=== PATIENT | female | born 1980 | race Caucasian/White ===

== ENCOUNTER 2016-11-23 01:58 | Emergency (ER) | payer SELFPAY ==
[~2016-11-23] VITALS: Ht 160 cm; Wt 81.6 kg
[~2016-11-23 01:58] MED LIST: ACET-704 PO; ACYC400T PO; ALBU8.5H6 IH; CLON1TAB PO; GABA-586 PO; GABA600T PO; HYDR-2161 PO; LEVO1IUD IY; LORA0.5T PO; METR500T PO; NITR100C62 PO; OXYC1TAB9 PO; PRED50TA PO; SULF1TAB24 PO; VENL150C PO; VENL37.5 PO
[2016-11-23 02:40] VITALS: BP 141/79
[2016-11-23 02:59] LABS: NEG OBC UR NEG; POS OBC UR POS
[2016-11-23 03:02] LABS: BILIRUBIN,URINE NEGATIVE (NEG); GLUCOSE,URINE NEGATIVE (NEG); NITRITE,URINE NEGATIVE (NEG); PROTEIN,URINE NEGATIVE (NEG-TRACE); UROBILINOGEN,URINE 0.2 mg/dL (0.2 mg/dL)
[2016-11-23 03:10] LABS: BACTERIA,URINE FEW /HPF (0-FEW); RBC,URINE TNTC /HPF (0-2); SQUAMOUS EPITHELIAL CELL,UR FEW /LPF
--- NOTE | 2016-11-23 03:31 | PHYS DOC ---
Past Medical History Past Medical History: Ovarian Cyst Additional Past Medical Histor: BORDERLINE DM2 Past Surgical History: No Surgical History Additional Past Surgical Histo: right knee Alcohol Use: None Drug Use: None Adult General Chief Complaint Chief Complaint: VAGINAL BLEEDING HPI HPI Patient is a 36 year old female who presents with abnormal vaginal bleeding since having her IUD removed. She has had some light bleeding and heavy bleeding that are intermittent over the past 2 weeks. She [facility] her [facility] due to irregular position. She has not had one replaced yet. She has supraumbilical/left lower quadrant crampy abdominal pain that is similar to her menstrual cramping, but she is not sure if it is exactly similar as she has had her IUD in place for almost 5 years and has not experienced cycles like this. She denies dysuria, diarrhea, constipation, nausea or vomiting, fever or chills. She has been taking ibuprofen every 8 hours without complete relief of her symptoms. She is using up to 6 pads per day. Review of Systems Review of Systems Constitutional: Denies fever or chills [] Eyes: Denies change in visual acuity, redness, or eye pain [] HENT: Denies nasal congestion or sore throat [] Respiratory: Denies cough or shortness of breath [] Cardiovascular: No additional information not addressed in HPI [] GI: Denies nausea, vomiting, bloody stools or diarrhea [] : Denies dysuria or hematuria [] Musculoskeletal: Denies back pain or joint pain [] Integument: Denies rash or skin lesions [] Neurologic: Denies headache, focal weakness or sensory changes [] Endocrine: Denies polyuria or polydipsia [] Current Medications Current Medications Current Medications Medications (Trade) Dose Ordered Sig/[facility] Start Time Stop Time Status Last Admin Dose Admin Acetaminophen/ Hydrocodone Bitart (Lortab 5/325) 2 tab 1X ONCE 11/23/16 04:00 11/23/16 04:01 DC 11/23/16 03:40 2 TAB Allergies Allergies Allergies Coded Allergies Type Severity Reaction Last Updated Verified No Known Drug Allergies 11/08/13 No Physical Exam Physical Exam Constitutional: Well developed, well nourished, no acute distress, non-toxic appearance. [] HENT: Normocephalic, atraumatic, bilateral external ears normal, oropharynx moist, nose normal. [] Eyes: PERRLA, EOMI. [] Neck: Normal range of motion, supple. [] Cardiovascular:Heart rate regular rhythm [] Lungs & Thorax: Bilateral breath sounds clear to auscultation [] Abdomen: Bowel sounds normal, soft, minimal suprapubic tenderness, no guarding or rebound. [] Skin: Warm, dry, no erythema, no rash. [] Back: No tenderness, no CVA tenderness. [] Extremities: ROM intact, no edema. [] Neurologic: Alert and oriented X 3, normal motor function, normal sensory function, no focal deficits noted. [] Psychologic: Affect normal, judgement normal, mood normal. [] Current Patient Data Vital Signs Vital Signs Date Time Temp Pulse Resp B/P Pulse Ox O2 Delivery O2 Flow Rate FiO2 11/23/16 03:40 16 98 Room Air 11/23/16 02:40 98.1 76 141/79 98.1 Lab Values Laboratory Tests Test 11/23/16 02:30 Urine Collection Type Unknown Urine Color Yellow Urine Clarity Clear Urine pH 6.0 Urine Specific Mize 1.020 Urine Protein Negativemg/dL (NEG-TRACE) Urine Glucose (UA) Negativemg/dL (NEG) Urine Ketones (Stick) Negativemg/dL (NEG) Urine Blood Large (NEG) Urine Nitrite Negative (NEG) Urine Bilirubin Negative (NEG) Urine Urobilinogen Dipstick 0.2mg/dL (0.2 mg/dL) Urine Leukocyte Esterase Small (NEG) Urine RBC Tntc/HPF (0-2) Urine WBC 5-10/HPF (0-4) Urine Squamous Epithelial Cells Few/LPF Urine Bacteria Few/HPF (0-FEW) Urine Mucus Mod/LPF Urine Test Negative (NEG) Course & Med Decision Making Course & Med Decision Making She appears well on exam. Recommend continue NSAIDs and follow-up with gynecology for abnormal uterine bleeding. Return precautions given. She understands and agrees with plan. Dragon Disclaimer Dragon Disclaimer This electronic medical record was generated, in whole or in part, using a voice recognition dictation system. Departure Departure Impression: Primary Impression: Abnormal uterine bleeding Disposition: HOME, SELF-CARE Condition: STABLE Referrals: UNKNOWN PCP NAME (PCP) Patient Instructions: Abnormal Uterine Bleeding Additional Instructions: Take ibuprofen or Tylenol as needed for pain. Follow-up with your residential mortgage manager. Return for any concerns. Aydin STERLING MD Nov 23, 2016 03:31
[2016-11-23] MEDS ORDERED: HYDROCODONE/APAP 5/325MG TABLET. PO ONE (04:00)
[2016-11-23] MEDS ORDERED: DICY10CA53 PO (16:47)
[2016-11-23] MEDS ORDERED: NAPR250T2 PO (16:47)
[2016-11-27] MEDS ORDERED: AMOX875T PO (15:00)
== END 2016-11-23 06:00 | disposition home or self-care (01) ==
LOC: ER 01:58
DX: N93.8 Other specified abnormal uterine and vaginal bleeding (principal)
CPT/HCPCS: 81001; 81025; 87086; 99284

== ENCOUNTER 2016-11-23 14:36 | Emergency (ER) | payer SELFPAY ==
[~2016-11-23] VITALS: Ht 160 cm; Wt 81.6 kg
[2016-11-23 15:04] LABS: NEG OBC UR NEG; POS OBC UR POS
--- NOTE | 2016-11-23 15:30 | ED.ADGEN ---
Past Medical History Past Medical History: Ovarian Cyst Additional Past Medical Histor: BORDERLINE DM2 Past Surgical History: No Surgical History Additional Past Surgical Histo: right knee Alcohol Use: None Drug Use: None Adult General Chief Complaint Chief Complaint: ABDOMINAL PAIN HPI HPI Patient is a 36 year old woman, history of ovarian cyst, borderline Diabetes mellitus, present emergency department with complaint of 2 days of left-sided sharp cramping pelvic pain. Patient states that she was evaluated at another emergency department last month, patient states that she had a Mirena in place, and she was told that Mirena had "slipped and was causing muscle spasm. Mirena was removed at that time. Patient states that she wasn't feeling better, 2 days ago developed recurrent sharp pelvic pain in the left side, she denies any injuries, any recent sexual activity or insertion of the vagina, does not have any urinary complaints or flank or back pain. No upper abdominal pain, complains of mild nausea, no vomiting, states that she had diarrhea 2 days ago but none since that time, loose brown stool, no blood. Patient has an ovarian cysts previously, but she is not certain if this feels like that pain. No other complaints. She states that she took ibuprofen 800 mg at home this morning without relief. Review of Systems Review of Systems Constitutional: Denies fever or chills. [] Eyes: Denies change in visual acuity. [] HENT: Denies nasal congestion or sore throat. [] Respiratory: Denies cough or shortness of breath. [] Cardiovascular: Denies chest pain or edema. [] GI: Denies vomiting, bloody stools or diarrhea. Left-sided pelvic cramping pain , sharp and shooting. : Denies dysuria. [] Musculoskeletal: Denies back pain or joint pain. [] Integument: Denies rash. [] Neurologic: Denies headache, focal weakness or sensory changes. [] Endocrine: Denies polyuria or polydipsia. [] Lymphatic: Denies swollen glands. [] Psychiatric: Denies depression or anxiety. [] Current Medications Current Medications Current Medications Medications (Trade) Dose Ordered Sig/Rj Start Time Stop Time Status Last Admin Dose Admin Dicyclomine HCl (Bentyl) 10 mg 1X ONCE 11/23/16 16:00 11/23/16 16:01 DC 11/23/16 16:05 10 MG Naproxen (Naprosyn) 250 mg 1X ONCE 11/23/16 16:00 11/23/16 16:01 DC 11/23/16 16:10 250 MG Allergies Allergies Allergies Coded Allergies Type Severity Reaction Last Updated Verified No Known Drug Allergies 11/08/13 No Physical Exam Physical Exam Constitutional: Well developed, well nourished, no acute distress, non-toxic appearance. [] HENT: Normocephalic, atraumatic, bilateral external ears normal, oropharynx moist, no oral exudates, nose normal. [] Eyes: PERRLA, EOMI, conjunctiva normal, no discharge. [] Neck: Normal range of motion, no tenderness, supple, no stridor. [] Cardiovascular:Heart rate regular rhythm, no murmur, S1, S2, no rubs or gallops. [] Lungs & Thorax: Bilateral breath sounds clear to auscultation , no wheezing, rhonchi, rales. No chest wall tenderness or crepitus. [] Abdomen: Bowel sounds normal, soft, patient with mild tenderness palpation in the left pelvic region, no abdominal tenderness to palpation, no rebound, rigidity, no guarding no masses, no pulsatile masses. [] Skin: Warm, dry, no erythema, no rash. [] Back: No tenderness, no CVA tenderness. [] Extremities: No tenderness, no cyanosis, no clubbing, ROM intact, no edema. [] Neurologic: Alert and oriented X 3, normal motor function, normal sensory function, no focal deficits noted. [] Psychologic: Affect normal, judgement normal, mood normal. [] Pelvic examination: Patient external examination is unremarkable. Patient complains of recurrence of symptoms with palpation of the left adnexa, although no masses are identified. No chandelier sign, very mild CMT with a closed os, patient noted to have dark blood in vault, with a few clots, no evidence of active bleeding or bright red blood. A speculum examination, normal appearing nonfriable cervix identified. Specimens taken with without issue. Current Patient Data Vital Signs Vital Signs Date Time Temp Pulse Resp B/P Pulse Ox O2 Delivery O2 Flow Rate FiO2 11/23/16 15:03 98.3 75 16 111/67 97 Room Air 98.3 Lab Values Laboratory Tests Test 11/23/16 14:57 Urine Test Negative (NEG) Microbiology 11/23/16 Wet Prep - Final, Complete EKG EKG Not indicated. Radiology/Procedures Radiology/Procedures [] [facility] [address] [place] [address] IMAGING REPORT Signed PATIENT: INÉS ALMONTE ACCOUNT: [id number] : 1980 LOCATION: ER AGE: 36 SEX: F EXAM STATUS: REG ER ORD. PHYSICIAN: LYN CARVAJAL DO REASON: L pelvic pain PROCEDURE: PELVIS COMPLETE Transabdominal ultrasound of the pelvis. History: Left pelvic pain Transabdominal ultrasound was performed. The uterus measures 7.6 x 4.1 x 4.3 cm. There is no uterine mass. Endometrium was 3 mm. Right ovary was noted measuring 3.6 x 1.9 x 1.3 cm. Left ovary is identified measuring 1.5 x 2.6 x 1.5 cm. There is no ovarian or uterine mass noted. There is no free fluid in the pelvis. Impression: 1. No uterine or ovarian mass noted. 2. No free fluid noted in the pelvis. DICTATED and SIGNED BY: KRYSTIAN HEATH MD DATE: 11/23/16 1551 CC: LYN CARVAJAL DO; NO PCP ~ Course & Med Decision Making Course & Med Decision Making Pertinent Labs and Imaging studies reviewed. (See chart for details) Patient well-appearing, with a non-concerning examination. Examination reveals mild tenderness in the left adnexal region, no masses palpated. Normal- appearing cervix. Wet prep is negative, other cultures are pending. Patient is instructed she'll be contacted with results of their car fall, she declines any medications for treatment at this time. Urinalysis is unremarkable as well, patient currently is on her menstrual cycle. Ultrasound ordered due to the patient's complaints, did not reveal any evidence of acutely concerning findings. Patient given Bentyl and naproxen in the ED, resting comfortably on reevaluation. I discussed with the patient that with her recurrence of the symptoms, which appear to be tied her menstrual cycle, that further evaluation would be carried out by [facility]. There is no evidence of any concerning findings require emergent intervention in the ED. Patient voiced understanding and agreement, discharged home in stable condition with contact information for the [facility] service at [facility], to return to the ED for concerning symptoms, and to follow-up as discussed. Dragon Disclaimer Dragon Disclaimer This electronic medical record was generated, in whole or in part, using a voice recognition dictation system. Departure Impression: Primary Impression: Pelvic pain Disposition: HOME, SELF-CARE Condition: IMPROVED Scripts Dicyclomine Hcl (Bentyl)10 Mg [id number] Mg PO QID PRN PAIN #12 TAB Prov:LYN CARVAJAL DO 11/23/16 Naproxen 250 Mg [id number] Mg PO BID PRN PAIN #10 Prov:LYN CARVAJAL DO 11/23/16 LYN CARVAJAL DO Nov 23, 2016 15:30
--- NOTE | 2016-11-23 15:55 | RAD ---
Transabdominal ultrasound of the pelvis. History: Left pelvic pain Transabdominal ultrasound was performed. The uterus measures 7.6 x 4.1 x 4.3 cm. There is no uterine mass. Endometrium was 3 mm. Right ovary was noted measuring 3.6 x 1.9 x 1.3 cm. Left ovary is identified measuring 1.5 x 2.6 x 1.5 cm. There is no ovarian or uterine mass noted. There is no free fluid in the pelvis. Impression: 1. No uterine or ovarian mass noted. 2. No free fluid noted in the pelvis.
[2016-11-23] MEDS ORDERED: NAPROXEN 250 MG TABLET PO ONE (16:00)
[2016-11-23] MEDS ORDERED: DICYCLOMINE HCL 10 MG CAPSULE PO ONE (16:00)
[2016-11-23 16:45] VITALS: BP 109/62
[2016-11-23] MEDS ORDERED: NAPR250T2 PO (16:47)
[2016-11-23] MEDS ORDERED: DICY10CA53 PO (16:47)
== END 2016-11-23 16:55 | disposition home or self-care (01) ==
LOC: ER 14:36
DX: R10.2 Pelvic and perineal pain (principal); N83.209 Unspecified ovarian cyst, unspecified side; Z98.890 Other specified postprocedural states
CPT/HCPCS: 76856; 81025; 87491; 87591; 99285; Q0111

== ENCOUNTER 2016-12-01 22:45 | Emergency (ER) | payer SELFPAY ==
[~2016-12-01 22:45] MED LIST changes: +AMOX875T PO; +DICY10CA53 PO; +NAPR250T2 PO
[2016-12-01 22:56] VITALS: BP 133/73
[2016-12-01 23:12] LABS: NEG OBC UR NEG; POS OBC UR POS
[2016-12-01 23:14] LABS: BILIRUBIN,URINE NEGATIVE (NEG); GLUCOSE,URINE NEGATIVE (NEG); NITRITE,URINE NEGATIVE (NEG); PROTEIN,URINE NEGATIVE (NEG-TRACE); UROBILINOGEN,URINE 0.2 mg/dL (0.2 mg/dL)
[2016-12-01 23:18] LABS: BACTERIA,URINE 0 /HPF (0-FEW); SQUAMOUS EPITHELIAL CELL,UR FEW /LPF; WBC,URINE 0 /HPF (0-4)
--- NOTE | 2016-12-01 23:29 | PHYS DOC ---
Past Medical History Past Medical History: Ovarian Cyst Additional Past Medical Histor: BORDERLINE DM2 Past Surgical History: No Surgical History Additional Past Surgical Histo: right knee Alcohol Use: None Drug Use: None Adult General Chief Complaint Chief Complaint: FLANK PAIN [facility] HPI Patient is a 36 year old female with history of narcotic dependence, ovarian cysts, who presents with 8 out of 10 left flank pain that began this morning. Patient states 2 days ago she was constipated, she states she took MiraLAX and milk of magnesia mind head a bowel movement yesterday as well as today. Patient denies any urgency frequency or dysuria. She states she has some nausea. Denies any fever. Denies any hematuria. This patient is well known to this ED for narcotic dependence. Patient is cursing in the ED and was very unhappy when I told her one of the reasons for her constipation is narcotic use and i will not give her any narcotics today. This patient was seen in the ED twice on November 27 2016 for dental pain, Twice on November [id number] twice for pelvic pain and uterine bleeding, November 19 for dental pain. This is her fifth visit in November 2016. Review of Systems Review of Systems Constitutional: Denies fever or chills [] Eyes: Denies change in visual acuity, redness, or eye pain [] HENT: Denies nasal congestion or sore throat [] Respiratory: Denies cough or shortness of breath [] Cardiovascular: No additional information not addressed in HPI [] GI: Denies abdominal pain, nausea, vomiting, bloody stools or diarrhea [] : Left flank pain Musculoskeletal: Denies back pain or joint pain [] Integument: Denies rash or skin lesions [] Neurologic: Denies headache, focal weakness or sensory changes [] Endocrine: Denies polyuria or polydipsia [] Allergies Allergies Allergies Coded Allergies Type Severity Reaction Last Updated Verified No Known Drug Allergies 11/08/13 No Physical Exam Physical Exam Constitutional: Well developed, well nourished, no acute distress, non-toxic appearance. [] HENT: Normocephalic, atraumatic, bilateral external ears normal, oropharynx moist, no oral exudates, nose normal. [] Eyes: PERRLA, EOMI, conjunctiva normal, no discharge. [] Neck: Normal range of motion, no tenderness, supple, no stridor. [] Cardiovascular:Heart rate regular rhythm, no murmur [] Lungs & Thorax: Bilateral breath sounds clear to auscultation [] Abdomen: Bowel sounds normal, soft, no tenderness, no masses, no pulsatile masses. [] Skin: Warm, dry, no erythema, no rash. [] Back: No tenderness, no CVA tenderness. [] Extremities: No tenderness, no cyanosis, no clubbing, ROM intact, no edema. [] Neurologic: Alert and oriented X 3, normal motor function, normal sensory function, no focal deficits noted. [] Psychologic: Affect normal, judgement normal, mood normal. [] Current Patient Data Vital Signs Vital Signs Date Time Temp Pulse Resp B/P Pulse Ox O2 Delivery O2 Flow Rate FiO2 12/01/16 22:56 98.0 78 18 98 Room Air 98.0 Lab Values Laboratory Tests Test 12/01/16 23:05 Urine Collection Type Unknown Urine Color Yellow Urine Clarity Clear Urine pH 7.0 Urine Specific Dawson <=1.005 Urine Protein Negativemg/dL (NEG-TRACE) Urine Glucose (UA) Negativemg/dL (NEG) Urine Ketones (Stick) Negativemg/dL (NEG) Urine Blood Trace (NEG) Urine Nitrite Negative (NEG) Urine Bilirubin Negative (NEG) Urine Urobilinogen Dipstick 0.2mg/dL (0.2 mg/dL) Urine Leukocyte Esterase Negative (NEG) Urine RBC 3-5/HPF (0-2) Urine WBC 0/HPF (0-4) Urine Squamous Epithelial Cells Few/LPF Urine Bacteria 0/HPF (0-FEW) Urine Test Negative (NEG) EKG EKG [] Radiology/Procedures Radiology/Procedures [] Course & Med Decision Making Course & Med Decision Making Pertinent Labs and Imaging studies reviewed. (See chart for details) Please see the history of present illness for further information, this patient is well known to this ED for chronic narcotic dependence. Patient has been seen in our ED multiple times for dental pain as well as pain related complaints some days she comes twice on the same day. This is her sixth visit in November 2016 today being December 01 2016. She is here complaining of left flank pain. She is also stating she was constipated 2 days ago, and had to take MiraLAX and milk of magnesium. Informed patient I will not give her any narcotics today because of constipation. Patient started cursing stating " this is why i do not want to come to this hospital. They intimidate you and talk to you like you want drugs." She continued yelling for quiet some time at some point arguing with the . Informed her i will get a UA and Ct of the abdomen but she will not get any narcotics. I even told her she was seen by Dr. Napier on 2016 and he documented we will not give her any narcotics in our Ed. The came out of the room and started yelling at me stating we are discriminating on the and he wants us to talk to my boss because we are discriminating on the . Informed the he can not yell at me and if he continues to yell at me i will ask for security to remove him from the ED. [place] enough two nurses were present and one called the charge nurse who came and spent an incredible amount of time the room with patient and who were also yelling at each other during the conversation. Security was also present standing around [employer] in case we needed them. Patient's CT came back which was negative for any acute findings. Urine analysis was also negative for any acute findings. 11:58 I went to the room to give patient and results. I was with the nurse who had discharge information. Gave patient information her CT is negative for any acute findings and gave her a copy of the results. Patient starts yelling to the saying "you see what i say" We (RN and I) continued to give her information including follow up with Dr. Neves for flank pain, doctors list, dentist list and local clinics. She stood up and started walking away in no distress. She refused to sign her discharge paperwork completely. The took the discharge paperwork. She continued walking away yelling at the . 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 Dragon Disclaimer Dragon Disclaimer This electronic medical record was generated, in whole or in part, using a voice recognition dictation system. Departure Departure Impression: Primary Impression: Left flank pain Additional Impression: Narcotic dependence Disposition: 01 HOME, SELF-CARE Condition: STABLE Referrals: NO PCP (PCP) KIRAN NEVES DO Patient Instructions: Flank Pain, [id number] Additional Instructions: You were seen for flank pain. Your urine has no infection. Your Ct of the abdomen and pelvic is negative for kidney stones or any acute findings. Please follow up with a doctor from the list provided. Problem Qualifiers SAWYER PHILIPPE APRN Dec 01, 2016 23:29
--- NOTE | 2016-12-01 23:48 | RAD ---
PROCEDURE CT abdomen and pelvis without intravenous contrast. HISTORY Left-sided flank pain beginning today. Frequent urinary tract infections. Evaluate for urinary stones. TECHNIQUE Helical CT of the abdomen and pelvis was performed without intravenous or oral contrast. Exposure: One or more of the following individualized dose reduction techniques were utilized for this examination: 1. Automated exposure control. 2. Adjustment of the mA and/or kV according to patient size. 3. Use of iterative reconstruction technique. COMPARISON None. FINDINGS Evaluation of solid organs is limited by lack of intravenous contrast. Evaluation of enteric structures may be limited by lack of oral contrast. Liver demonstrates several coarse nonspecific calcifications. Spleen, pancreas, gallbladder, and bilateral adrenal glands are unremarkable. Bilateral kidneys and ureters free of stone or obstruction. Appendix is without inflammation. No bowel obstruction or inflammation is identified. Urinary bladder is unremarkable. Uterus and adnexa have unremarkable CT appearance. No free air or significant free fluid is seen in the abdomen or pelvis. Small fat containing umbilical hernia is seen. Degenerative disc disease is seen at L5-S1. IMPRESSION 1. No acute abnormality identified in the abdomen or pelvis. No evidence of urinary stone. 2. Fat containing umbilical hernia. Electronically signed by: Ketan Mckinney MD (Dec 01, 2016 23:46:09)
== END 2016-12-01 23:58 | disposition home or self-care (01) ==
LOC: ER 22:45
DX: R10.9 Unspecified abdominal pain (principal); R11.0 Nausea; F11.20 Opioid dependence, uncomplicated; K08.89 Other specified disorders of teeth and supporting structures
CPT/HCPCS: 74176; 81001; 81025; 99285-25

== ENCOUNTER 2017-02-11 15:19 | Emergency (ER) | payer SELFPAY ==
[~2017-02-11] VITALS: Ht 160 cm; Wt 86.2 kg
--- NOTE | 2017-02-11 15:42 | PHYS DOC ---
Past Medical History Past Medical History: Ovarian Cyst, Other Additional Past Medical Histor: BORDERLINE DM2, ulcers Past Surgical History: No Surgical History Additional Past Surgical Histo: right knee Alcohol Use: None Drug Use: None Adult General Chief Complaint Chief Complaint: [facility] HPI Patient is a 36 year old female presents emergency department stating that she dropped a falling table on her foot yesterday. She states that she is able to ambulate on her heel although she has increased pain in the foot area. She is able to move her toes and ankle without difficulty. There is no bruising or discoloration noted on the foot. Peripheral pulses are 2+ cap refill brisk less than 2 seconds. Patient has good sensation to the toes. Patient states she took 1500 mg of Tylenol this morning with no relief. Review of Systems Review of Systems Constitutional: Denies fever or chills [] Eyes: Denies change in visual acuity, redness, or eye pain [] HENT: Denies nasal congestion or sore throat [] Respiratory: Denies cough or shortness of breath [] Cardiovascular: No additional information not addressed in HPI [] GI: Denies abdominal pain, nausea, vomiting, bloody stools or diarrhea [] : Denies dysuria or hematuria [] Musculoskeletal: Denies back pain. C/o right foot pain Integument: Denies rash or skin lesions [] Neurologic: Denies headache, focal weakness or sensory changes [] Allergies Allergies Allergies Coded Allergies Type Severity Reaction Last Updated Verified No Known Drug Allergies 11/08/13 No Physical Exam Physical Exam Constitutional: Well developed, well nourished, no acute distress, non-toxic appearance. [] HENT: Normocephalic, atraumatic, bilateral external ears normal, oropharynx moist, no oral exudates, nose normal. [] Eyes: PERRLA, EOMI, conjunctiva normal, no discharge. [] Neck: Normal range of motion, no tenderness, supple, no stridor. [] Cardiovascular:Heart rate regular rhythm, no murmur [] Lungs & Thorax: Bilateral breath sounds clear to auscultation [] Skin: Warm, dry, no erythema, no rash. [] Back: No tenderness Extremities: C/o right foot tenderness, no cyanosis, no clubbing, ROM intact, no edema. No bruising or discoloration noted on the foot. No swelling noted. Peripheral pulses 2+ cap refill brisk less than 2 seconds patient is able to move the toes and ankles without difficulty. Good sensation noted. Neurologic: Alert and oriented X 3, normal motor function, normal sensory function, no focal deficits noted. [] Psychologic: Affect normal, judgement normal, mood normal. [] Current Patient Data Vital Signs Vital Signs Date Time Temp Pulse Resp B/P Pulse Ox O2 Delivery O2 Flow Rate FiO2 02/11/17 15:28 98.1 81 18 99 Room Air 98.1 EKG EKG [] Radiology/Procedures Radiology/Procedures [][facility] [address] [place], [place] [id number] IMAGING REPORT Signed PATIENT: INÉS ALMONTE ACCOUNT: [id number] : 1980 LOCATION: ER AGE: 36 SEX: F EXAM STATUS: REG ER ORD. PHYSICIAN: DOMINGO SHAFFER APRN REASON: folding table fell on foot PROCEDURE: FOOT RIGHT 3V Indication injury. Pain. AP oblique and lateral views of the right foot were obtained. There is some soft tissue swelling over the dorsum of the foot. No bony abnormality is seen DICTATED and SIGNED BY: CHANTAL PARRY MD DATE: 02/11/17 1557 CC: DOMINGO SHAFFER APRN; NO PCP; NON,STAFF ~ Course & Med Decision Making Course & Med Decision Making Pertinent Labs and Imaging studies reviewed. (See chart for details) X-rays were negative for any fractures or abnormality. This appeared to show some swelling per radiology. Patient will be placed in an Steven wrap and a postop shoe with recommendations for ice packs elevation and Tylenol for pain and discomfort. She'll be provided with orthopedic name and number to follow up with. Recommended wearing the Steven wrap for the next 5-7 days in the postop shoe for 7-10 days. Signs and symptoms to return back to emergency department been provided. Patient agrees with discharge instructions treatment regimens follow- up recommendations. [] Dragon Disclaimer Dragon Disclaimer This electronic medical record was generated, in whole or in part, using a voice recognition dictation system. Departure Departure Impression: Primary Impression: Right foot sprain Disposition: 01 HOME, SELF-CARE Condition: STABLE Referrals: NO PCP (PCP) LETICIA BOWEN MD Patient Instructions: Foot Sprain-Brief Additional Instructions: Activity as tolerated Ice pack on 20 minutes and off 20 minutes several times a day Elevation as much as possible Wear the the steven wrap for the next 5-7 days Wear the post op shoe for the next 7-10 days Tylenol for pain and discomfort do not take more than 4 grams in a 24 hour period Followup with orthopedic in 1 week Return to emergency department as needed for signs and symptoms that become worse. DOMINGO SHAFFER APRN Feb 11, 2017 15:42
--- NOTE | 2017-02-11 16:03 | RAD ---
Indication injury. Pain. AP oblique and lateral views of the right foot were obtained. There is some soft tissue swelling over the dorsum of the foot. No bony abnormality is seen
[2017-02-11] MEDS ORDERED: ACETAMINOPHEN 500 MG TABLET PO ONE (16:15)
== END 2017-02-11 16:15 | disposition home or self-care (01) ==
LOC: ER 15:19
DX: S63.619A Unspecified sprain of unspecified finger, initial encounter (principal); W20.8XXA Other cause of strike by thrown, projected or falling object, initial encounter; Y93.89 Activity, other specified; Y99.8 Other external cause status; Y92.89 Other specified places as the place of occurrence of the external cause
CPT/HCPCS: 73630; 99284

== ENCOUNTER 2017-05-18 23:38 | Emergency (ER) | payer SELFPAY ==
[~2017-05-18] VITALS: Ht 160 cm; Wt 81.6 kg
[2017-05-18 23:45] VITALS: BP 136/79
[2017-05-19] MEDS ORDERED: PENI500T PO (00:35)
[2017-05-19] MEDS ORDERED: IBUP-1060 PO (00:35)
--- NOTE | 2017-05-19 00:35 | PHYS DOC ---
Past Medical History Past Medical History: Anxiety, Asthma, Ovarian Cyst, Other Additional Past Medical Histor: BORDERLINE DM2, ulcers, PTSD Past Surgical History: Other Additional Past Surgical Histo: right knee injection Alcohol Use: None Drug Use: None Adult General Chief Complaint Chief Complaint: DENTAL PROBLEM HPI HPI Patient is a 36 year old F who presents with left upper tooth pain that has been present for the past couple days. Patient denies any fevers. Patient denies any difficulty swallowing. Patient denies any nausea/vomiting/diarrhea. Patient denied chest pain or shortness of breath. Patient has multiple dental caries. Patient has no other complaints. Pertinent exam findings: Patient has pain to tooth 12 with multiple dental caries in the upper and lower jaws associated gum erythema and irritation ED course: She was seen and examined in the emergency room and was given penicillin VK, 60 mg of Toradol IM, 4 mg Zofran ODT and prescribed penicillin VK, Motrin, Zofran ODT MDM: After reviewing the chart, CC/HPI/PMH, physical exam, do not believe the patient has emergent medical condition warranting further workup and/or admission at this time. The patient has a toothache associated gingivitis therefore will treat the patient with oral antibiotics and Motrin for pain. Recommended patient follow with her dentist or PCP for further evaluation and management. Patient is stable for discharge. Additional verbal discharge instructions were provided to the patient and that if symptoms get worse or any new symptoms arise that are worrisome to the patient she is to return to the emergency room immediately Review of Systems Review of Systems GEN: Denies fevers, chills, sweats HEENT: Toothache CV: Denies chest pain RESP: Denies shortness of air, cough GI: Denies n/v/d NEURO: Denies confusion, dizziness MSK: Denies weakness, joint pain/swelling Current Medications Current Medications Current Medications Medications (Trade) Dose Ordered Sig/Rj Start Time Stop Time Status Last Admin Dose Admin Ketorolac Tromethamine (Toradol Im) 60 mg 1X ONCE 05/19/17 01:00 05/19/17 01:01 Ondansetron HCl (Zofran Odt) 4 mg 1X ONCE 05/19/17 01:00 05/19/17 01:01 Penicillin V Potassium (Veetid) 500 mg 1X ONCE 05/19/17 01:00 05/19/17 01:01 Allergies Allergies Allergies Coded Allergies Type Severity Reaction Last Updated Verified No Known Drug Allergies 11/08/13 No Physical Exam Physical Exam GEN.: No apparent distress. Alert and oriented. HEENT: Head is normocephalic, atraumatic, Patient has pain to tooth 12 with multiple dental caries in the upper and lower jaws associated gum erythema and irritation NECK: Supple. LUNGS: CTAB. HEART: RRR, S1, S2 present. Peripheral pulses intact ABDOMEN: Soft, nontender. Positive bowel sounds. EXTREMITIES: Without any cyanosis. NEUROLOGIC: Normal speech, normal tone PSYCHIATRIC: Normal affect, normal mood. SKIN: No ulcerations Current Patient Data Vital Signs Vital Signs Date Time Temp Pulse Resp B/P (MAP) Pulse Ox O2 Delivery O2 Flow Rate FiO2 05/18/17 23:45 99.1 90 20 95 Room Air 99.1 EKG EKG [] Radiology/Procedures Radiology/Procedures [] Course & Med Decision Making Course & Med Decision Making Pertinent Labs and Imaging studies reviewed. (See chart for details) [] Dragon Disclaimer Dragon Disclaimer This electronic medical record was generated, in whole or in part, using a voice recognition dictation system. Departure Departure Impression: Primary Impression: Dental caries Additional Impressions: Toothache Gingivitis Disposition: HOME, SELF-CARE Condition: STABLE Referrals: NO PCP (PCP) Patient Instructions: Toothache-Brief Additional Instructions: Leads follow-up with her family doctor in one to 2 days. Scripts Ibuprofen (IBUPROFEN) 800 Mg Tablet 800 MG PO PRN Q6HRS Y for INFLAMMATION for 10 Days, #40 TAB Prov: CHARLI MTZ DO 05/19/17 Penicillin V Potassium (PENICILLIN V POTASSIUM) 500 Mg Tablet 1 TAB PO QID, #40 TAB Prov: CHARLI MTZ DO 05/19/17 Problem Qualifiers CHARLI MTZ DO May 19, 2017 00:35
[2017-05-19] MEDS ORDERED: KETOROLAC TROMETHAMINE 60 MG/2 ML INJ. IM ONE (01:00)
[2017-05-19] MEDS ORDERED: PENICILLIN V K 250 MG TABLET. PO ONE (01:00)
[2017-05-19] MEDS ORDERED: ONDANSETRON ODT 4 MG TAB.RAPDIS. PO ONE (01:00)
== END 2017-05-19 01:16 | disposition home or self-care (01) ==
LOC: ER 23:38
DX: K02.9 Dental caries, unspecified (principal); K05.10 Chronic gingivitis, plaque induced; J45.909 Unspecified asthma, uncomplicated; F43.10 Post-traumatic stress disorder, unspecified
CPT/HCPCS: 96372; 99283; J1885; Q0162

== ENCOUNTER 2017-08-02 21:03 | Emergency (ER) | payer SELFPAY ==
[~2017-08-02] VITALS: Ht 160 cm; Wt 81.6 kg
[~2017-08-02 21:03] MED LIST changes: +IBUP-1060 PO; -NAPR250T2 PO; +NAPR250T6 PO; +PENI500T PO
[2017-08-02 21:27] VITALS: BP 117/69
[2017-08-02] MEDS ORDERED: HYDR-971 PO (21:59)
[2017-08-02] MEDS ORDERED: AMOX500C PO (21:59)
--- NOTE | 2017-08-02 21:59 | PHYS DOC ---
Past Medical History Past Medical History: Anxiety, Asthma, Ovarian Cyst, Other Additional Past Medical Histor: BORDERLINE DM2, ulcers, PTSD Past Surgical History: Other Additional Past Surgical Histo: right knee injection Alcohol Use: None Drug Use: None Adult General Chief Complaint Chief Complaint: DENTAL PROBLEM [facility] HPI Patient is a 37 year old female presents to the emergency department stating that she just had a tooth aches corrected on the left lower area approximately # 20 tooth. Patient states that she had initially started smoking after the tooth has been pulled once the pain started she stopped smoking. Patient states she's taken aspirin and nonsteroidal anti-inflammatories without any relief. She states that she called her dentist and they recommended that she come to the emergency department. Patient denies any fever, chills or any nausea vomiting. Review of Systems Review of Systems Constitutional: Denies fever or chills [] Eyes: Denies change in visual acuity, redness, or eye pain [] HENT: Denies nasal congestion or sore throat. Dental pain Respiratory: Denies cough or shortness of breath [] Cardiovascular: No additional information not addressed in HPI [] GI: Denies abdominal pain, nausea, vomiting, bloody stools or diarrhea [] : Denies dysuria or hematuria [] Musculoskeletal: Denies back pain or joint pain [] Integument: Denies rash or skin lesions [] Neurologic: Denies headache, focal weakness or sensory changes [] Endocrine: Denies polyuria or polydipsia [] Allergies Allergies Allergies Coded Allergies Type Severity Reaction Last Updated Verified No Known Drug Allergies 11/08/13 No Physical Exam Physical Exam Constitutional: Well developed, well nourished, no acute distress, non-toxic appearance. [] HENT: Normocephalic, atraumatic, bilateral external ears normal, oropharynx moist, no oral exudates, nose normal. Bilateral tympanic membranes appear to be normal. Patient with #20 tooth that appears to be extracted. The area appears to be slightly red with no drainage or discharge coming from the site. Eyes: PERRLA, EOMI, conjunctiva normal, no discharge. [] Neck: Normal range of motion, no tenderness, supple, no stridor. [] Cardiovascular:Heart rate regular rhythm Lungs & Thorax: No respiratory distress noted Skin: Warm, dry, no erythema, no rash. [] Extremities: No tenderness, no cyanosis, no clubbing, ROM intact, no edema. [] Neurologic: Alert and oriented X 3, normal motor function, normal sensory function, no focal deficits noted. [] Psychologic: Affect normal, judgement normal, mood normal. [] Current Patient Data Vital Signs Vital Signs Date Time Temp Pulse Resp B/P (MAP) Pulse Ox O2 Delivery O2 Flow Rate FiO2 08/02/17 21:27 97.9 72 20 100 Room Air 97.9 EKG EKG [] Radiology/Procedures Radiology/Procedures [] Course & Med Decision Making Course & Med Decision Making Pertinent Labs and Imaging studies reviewed. (See chart for details) Patient will be provided with hydrocodone here in the emergency department. She' ll be discharged home with a prescription for amoxicillin. Recommended that she keep her appointment for her walk-in appointment tomorrow at her dentist. Patient will be discharged home in stable condition with recommendations to avoid smoking or using any type of distress or any type of significant lotion. Patient agrees with discharge instructions, treatment regimens and follow-up recommendations. Since symptoms to return back to emergency department as been provided. All questions and concerns have been answered to the patient's bedside. [] Dragon Disclaimer Dragon Disclaimer This electronic medical record was generated, in whole or in part, using a voice recognition dictation system. Departure Departure Impression: Primary Impression: Dry socket Disposition: 01 HOME, SELF-CARE Condition: STABLE Referrals: UNKNOWN PCP NAME (PCP) Patient Instructions: Dental Dry Socket, [id number] Additional Instructions: Activity as tolerated. Medication as prescribed. Hydrocodone will cause drowsiness do not take any be alert and oriented. Nonsteroidal anti-inflammatories may be used also for pain and discomfort. Follow-up with your dentist tomorrow. Return back to emergency prior signs symptoms of become worse. Scripts Hydrocodone/Apap 5-325 (NORCO 5-325 TABLET) 1 Each Tablet 1 TAB PO PRN Q6HRS Y for PAIN, #6 TAB 0 Refills Prov: DOMINGO SHAFFER APRN 08/02/17 Amoxicillin (AMOXICILLIN) 500 Mg Capsule 1 CAP PO QID, #40 CAP Prov: DOMINGO SHAFFER APRN 08/02/17 DOMINGO SHAFFER APRN Aug 02, 2017 21:59
[2017-08-02] MEDS ORDERED: HYDROcodone/APAP 5/325MG 1 TAB TABLET PO ONE (22:30)
== END 2017-08-02 22:12 | disposition home or self-care (01) ==
LOC: ER 21:03
DX: M27.3 Alveolitis of jaws (principal); F43.10 Post-traumatic stress disorder, unspecified; J45.909 Unspecified asthma, uncomplicated; F41.9 Anxiety disorder, unspecified
CPT/HCPCS: 99283

== ENCOUNTER 2018-04-18 15:14 | Emergency (ER) | payer SELFPAY ==
[2018-04-18] MEDS: HYDROcodone/APAP 5/325MG 1 TAB TABLET PO (16:17)
== END 2018-04-18 16:41 | disposition home or self-care (01) ==
LOC: ER 16:41
DX: S92.421A Displaced fracture of distal phalanx of right great toe, initial encounter for closed fracture (principal); F41.9 Anxiety disorder, unspecified; J45.909 Unspecified asthma, uncomplicated; F43.10 Post-traumatic stress disorder, unspecified; W22.09XA Striking against other stationary object, initial encounter; Y93.89 Activity, other specified; Y92.89 Other specified places as the place of occurrence of the external cause; Y99.8 Other external cause status
CPT/HCPCS: 73630; 99284

== ENCOUNTER 2018-04-21 13:02 | Emergency (ER) | payer SELFPAY ==
[2018-04-21] MEDS: HYDROcodone/APAP 5/325MG 1 TAB TABLET PO (15:03)
== END 2018-04-21 15:05 | disposition home or self-care (01) ==
LOC: ER 15:05
DX: S92.414D Nondisplaced fracture of proximal phalanx of right great toe, subsequent encounter for fracture with routine healing (principal); M79.674 Pain in right toe(s); B35.3 Tinea pedis; J45.909 Unspecified asthma, uncomplicated; F43.10 Post-traumatic stress disorder, unspecified; W01.0XXD Fall on same level from slipping, tripping and stumbling without subsequent striking against object, subsequent encounter
CPT/HCPCS: 99283

== ENCOUNTER 2018-08-01 12:03 | Emergency (ER) | payer SELFPAY ==
[~2018-08-01] VITALS: Ht 160 cm; Wt 81.6 kg
[~2018-08-01 12:03] MED LIST changes: +AMOX500C PO; +HYDR-971 PO; +OXYC-411 PO; -OXYC1TAB9 PO
[2018-08-01 12:40] VITALS: BP 131/69
[2018-08-01] MEDS ORDERED: IV NORMAL SALINE 1000ML BAG 1,000 ML IV SCH (13:47)
[2018-08-01] MEDS ORDERED: ALBUTEROL SULFATE 2.5 MG/3 ML NEBU. NEB ONE (14:15)
--- NOTE | 2018-08-01 14:18 | PHYS DOC ---
Past Medical History Past Medical History: Anxiety, Asthma, Ovarian Cyst, Other Additional Past Medical Histor: BORDERLINE DM2, ulcers, PTSD Past Surgical History: Other Additional Past Surgical Histo: right knee injection Alcohol Use: None Drug Use: None Adult General Chief Complaint Chief Complaint: multiple medical complaints HPI HPI Patient is a 38-year-old female who presents to the emergency department for evaluation of multiple medical complaints. Her main reason for checking into the emergency department was nasal congestion and a cough, which has been present for the past 2-3 days. She has not had any fevers. She recently had some dental work done and is currently taking amoxicillin, along with some Tylenol with codeine. She also states she is about 2 months , she states her was verified at the health department. She states that she has not had any other care yet. This is her fifth , and she has had for children. She states that she has required progesterone injections with her prior pregnancies, however. She is uncertain of her blood type but does not think she has received enrolled in. She states that for the past several days she has been having some lower abdominal discomfort, and states she had some vaginal bleeding a few days ago, but that has resolved at this time. She admits to some dysuria as well. She has not had any other pain. She has not had any nausea or vomiting, dizziness, or lightheadedness. There are no alleviating, or exacerbating factors to her symptoms. Review of Systems Review of Systems Constitutional: Denies fever or chills [] Eyes: Denies change in visual acuity, redness, or eye pain [] HENT: Reports nasal congestion. Denies sore throat [] Respiratory: Reports cough and shortness of breath [] Cardiovascular: The patient denies any chest pain, palpitations, or orthopnea [ ] GI: Denies abdominal pain, nausea, vomiting, bloody stools or diarrhea [] : Denies dysuria or hematuria [] Musculoskeletal: Denies back pain or joint pain [] Integument: Denies rash or skin lesions [] Neurologic: Denies headache, focal weakness or sensory changes [] Endocrine: Denies polyuria or polydipsia [] All other systems were reviewed and found to be within normal limits, except as documented in this note. Current Medications Current Medications Current Medications Medications (Trade) Dose Ordered Sig/Rj Start Time Stop Time Status Last Admin Dose Admin Acetaminophen (Tylenol) 650 mg 1X ONCE 08/01/18 15:45 08/01/18 15:46 DC Albuterol Sulfate (Ventolin Neb Soln) 2.5 mg 1X ONCE 08/01/18 14:15 08/01/18 14:16 DC 08/01/18 15:27 2.5 MG Promethazine HCl (Phenergan) 12.5 mg 1X ONCE 08/01/18 15:45 08/01/18 15:46 DC Sodium Chloride 1,000 ml @ 1,000 mls/hr Q1H 08/01/18 13:47 08/01/18 14:46 DC 08/01/18 14:21 1,000 MLS/HR Allergies Allergies Allergies Coded Allergies Type Severity Reaction Last Updated Verified No Known Drug Allergies 11/08/13 No Physical Exam Physical Exam PHYSICAL EXAM: CONSTITUTIONAL: Well developed, well nourished HEAD: normocephalic, atraumatic EENT: PERRL, EOMI. Conjunctivae normal color, sclerae non-icteric; moist mucous membranes. Nasal congestion is present. NECK: Supple, non-tender; no meningismus. LUNGS: There are scattered wheezes in all lung shepherd, breathing even and unlabored. Normal air movement. HEART: Regular rate and rhythm, no murmur CHEST: No deformity; non-tender ABDOMEN: The abdomen is soft, there is diffuse lower abdominal tenderness to palpation, without rebound or guarding, normal bowel sounds are present, no masses or bruits. EXTREM: Normal ROM; no deformity, no calf tenderness. Normal pulses palpable in all extremities. There is no pedal edema. SKIN: No rash; no diaphoresis NEURO: Alert; normal speech and cognition; CN's grossly intact; strength grossly intact without focal deficit. BACK: No CVA TTP. PELVIC EXAM: Normal external genitalia. The cervix appears unremarkable. There is no vaginal discharge present. Exam was performed in the presence of DANNY Bernstein. Current Patient Data Vital Signs Vital Signs Date Time Temp Pulse Resp B/P (MAP) Pulse Ox O2 Delivery O2 Flow Rate FiO2 08/01/18 15:30 96 Room Air 08/01/18 12:40 98.8 78 20 131/69 (89) 98.8 Lab Values Laboratory Tests Test 08/01/18 14:16 08/01/18 14:08/01/18 14:30 White Blood Count 12.5 x10^3/uL (4.0-11.0) H Red Blood Count 4.40 x10^6/uL (3.50-5.40) Hemoglobin 12.9 g/dL (12.0-15.5) Hematocrit 36.6 % (36.0-47.0) Mean Corpuscular Volume 83 fL (79-100) Mean Corpuscular Hemoglobin 29 pg (25-35) Mean Corpuscular Hemoglobin Concent 35 g/dL (31-37) Red Cell Distribution Width 14.8 % (11.5-14.5) H Platelet Count 353 x10^3/uL (140-400) Neutrophils (%) (Auto) 77 % (31-73) H Lymphocytes (%) (Auto) 15 % (24-48) L Monocytes (%) (Auto) 7 % (0-9) Eosinophils (%) (Auto) 1 % (0-3) Basophils (%) (Auto) 0 % (0-3) Neutrophils # (Auto) 9.6 x10^3uL (1.8-7.7) H Lymphocytes # (Auto) 1.8 x10^3/uL (1.0-4.8) Monocytes # (Auto) 0.9 x10^3/uL (0.0-1.1) Eosinophils # (Auto) 0.1 x10^3/uL (0.0-0.7) Basophils # (Auto) 0.1 x10^3/uL (0.0-0.2) Maternal Serum HCG Beta Subunit 344309 mIU/mL (0-5) H Sodium Level 136 mmol/L (136-145) Potassium Level 3.5 mmol/L (3.5-5.1) Chloride Level 98 mmol/L (98-107) Carbon Dioxide Level 25 mmol/L (21-32) Anion Gap 13 (6-14) Blood Urea Nitrogen 8 mg/dL (7-20) Creatinine 0.6 mg/dL (0.6-1.0) Estimated GFR (Cockcroft-Gault) 111.9 BUN/Creatinine Ratio 13 (6-20) Glucose Level 78 mg/dL (70-99) Calcium Level 8.7 mg/dL (8.5-10.1) Total Bilirubin 0.2 mg/dL (0.2-1.0) Aspartate Amino Transferase (AST) 14 U/L (15-37) L Alanine Aminotransferase (ALT) 31 U/L (14-59) Alkaline Phosphatase 80 U/L (46-116) Total Protein 7.4 g/dL (6.4-8.2) Albumin 3.6 g/dL (3.4-5.0) Albumin/Globulin Ratio 0.9 (1.0-1.7) L Lipase 141 U/L (73-393) Urine Collection Type Unknown Urine Color Yellow Urine Clarity Clear Urine pH 6.0 Urine Specific Camas 1.010 Urine Protein Negative mg/dL (NEG-TRACE) Urine Glucose (UA) Negative mg/dL (NEG) Urine Ketones (Stick) Negative mg/dL (NEG) Urine Blood Negative (NEG) Urine Nitrite Negative (NEG) Urine Bilirubin Negative (NEG) Urine Urobilinogen Dipstick 0.2 mg/dL (0.2 mg/dL) Urine Leukocyte Esterase Trace (NEG) Urine RBC Occ /HPF (0-2) Urine WBC 5-10 /HPF (0-4) Urine Squamous Epithelial Cells Mod /LPF Urine Bacteria Few /HPF (0-FEW) Urine Opiates Screen Pos (NEG) Urine Methadone Screen Neg (NEG) Urine Barbiturates Neg (NEG) Urine Phencyclidine Screen Neg (NEG) Urine Amphetamine/Methamphetamine Neg (NEG) Urine Benzodiazepines Screen Neg (NEG) Urine Cocaine Screen Neg (NEG) Urine Cannabinoids Screen Neg (NEG) Urine Ethyl Alcohol Neg (NEG) Influenza Type A Antigen Negative (NEGATIVE) Influenza Type B Antigen Negative (NEGATIVE) Laboratory Tests 08/01/18 14:16 Laboratory Tests 08/01/18 14:16 Microbiology 08/01/18 Wet Prep - Final, Complete WET PREP Final YEAST NONE SEEN TRICHOMONAS NONE SEEN CLUE CELLS NONE SEEN WBCS FEW SQUAMOUS EPS MODERATE EKG EKG [] Radiology/Procedures Radiology/Procedures [PROCEDURE: CHEST AP ONLY Portable chest, 08/01/2018: HISTORY: Cough, shortness of breath The heart size is normal. No pulmonary infiltrate is seen. There is no evidence of pleural fluid. IMPRESSION: No acute cardiopulmonary abnormality is detected.] PROCEDURE: OB < 14 WKS Obstetrical ultrasound, 08/01/2018: HISTORY: , unsure of dates, cough and congestion Transabdominal scans were obtained. The uterus contains a single gestational sac. The gestational sac contains a yolk sac and a pole. The pole demonstrates a crown-rump rump length of 6 mm compatible with a gestational age of 6 weeks and 3 days. This yields a sonographic EDC of 03/24/2019. cardiac activity is present with a heart rate of 153 bpm. There is no evidence of subchorionic hemorrhage. A 2.6 cm cyst is evident in the right ovary. The left ovary was not visualized. No free fluid is evident in the pelvis. IMPRESSION: 1. Single viable intrauterine fetus of 6-7 weeks gestational age. 2. Small right ovarian cyst. Course & Med Decision Making Course & Med Decision Making Pertinent Labs and Imaging studies reviewed. (See chart for details) [3:50 PM:Patient remains stable. I discussed test results, the need for close follow-up, and return precautions.] Pt was counseled regarding smoking cessation. Dragon Disclaimer Dragon Disclaimer This electronic medical record was generated, in whole or in part, using a voice recognition dictation system. Departure Departure Impression: Primary Impression: Upper respiratory infection Additional Impressions: Wheezing Abdominal pain affecting Disposition: 01 HOME, SELF-CARE Condition: STABLE Referrals: DARRYL KEYES Jr, MD Patient Instructions: Abdominal Pain During , Smoking Cessation, Upper Respiratory Infection, Adult Scripts Albuterol Sulfate (PROAIR HFA INHALER) 8.5 Gm Hfa.aer.ad 1 PUFF INH PRN Q6HRS PRN for SHORTNESS OF BREATH, #1 INHALER 0 Refills Prov: YASMANI ALAS MD 08/01/18 Problem Qualifiers YASMANI ALAS MD Aug 01, 2018 14:18
[2018-08-01 14:28] LABS: BASO # 0.1 x10^3/uL (0.0-0.2); BASO % 0 % (0-3); EOS # 0.1 x10^3/uL (0.0-0.7); EOS % 1 % (0-3); HEMATOCRIT 36.6 % (36.0-47.0); HEMOGLOBIN 12.9 g/dL (12.0-15.5); LYMPH # 1.8 x10^3/uL (1.0-4.8); LYMPH % 15 % (24-48); MEAN CORPUSCULAR HEMOGLOBIN 29 pg (25-35); MEAN CORPUSCULAR HGB CONC 35 g/dL (31-37); MEAN CORPUSCULAR VOLUME 83 fL (79-100); MONO # 0.9 x10^3/uL (0.0-1.1); MONO % 7 % (0-9); NEUT # 9.6 x10^3uL (1.8-7.7); NEUT % 77 % (31-73); PLATELET COUNT 353 x10^3/uL (140-400); RED CELL DISTRIBUTION WIDTH 14.8 % (11.5-14.5); WHITE BLOOD COUNT 12.5 x10^3/uL (4.0-11.0)
[2018-08-01 14:30] LABS: BILIRUBIN,URINE NEGATIVE (NEG); CLARITY,URINE CLEAR; COLOR,URINE YELLOW; NITRITE,URINE NEGATIVE (NEG); PROTEIN,URINE NEGATIVE (NEG-TRACE); UROBILINOGEN,URINE 0.2 mg/dL (0.2 mg/dL)
[2018-08-01 14:35] LABS: BACTERIA,URINE FEW /HPF (0-FEW); RBC,URINE OCC /HPF (0-2); SQUAMOUS EPITHELIAL CELL,UR MOD /LPF
[2018-08-01 14:38] LABS: CALCIUM 8.7 mg/dL (8.5-10.1); CREATININE 0.6 mg/dL (0.6-1.0); GFR 111.9; POTASSIUM 3.5 mmol/L (3.5-5.1)
[2018-08-01 14:39] LABS: BARBITURATES NEG (NEG); BENZODIAZEPINES NEG (NEG); CANNABINOIDS NEG (NEG); COCAINE NEG (NEG); METHADONE NEG (NEG); OPIATES POS (NEG); PHENCYCLIDINE NEG (NEG)
[2018-08-01 14:44] LABS: ALBUMIN 3.6 g/dL (3.4-5.0); ALBUMIN/GLOBULIN RATIO 0.9 (1.0-1.7); TOTAL BILIRUBIN 0.2 mg/dL (0.2-1.0); TOTAL PROTEIN 7.4 g/dL (6.4-8.2)
[2018-08-01 14:47] LABS: AMPHETAMINE/METHAMPHETAMINE NEG (NEG)
--- NOTE | 2018-08-01 14:47 | RAD ---
Obstetrical ultrasound, 08/01/2018: HISTORY: , unsure of dates, cough and congestion Transabdominal scans were obtained. The uterus contains a single gestational sac. The gestational sac contains a yolk sac and a pole. The pole demonstrates a crown-rump rump length of 6 mm compatible with a gestational age of 6 weeks and 3 days. This yields a sonographic EDC of 03/24/2019. cardiac activity is present with a heart rate of 153 bpm. There is no evidence of subchorionic hemorrhage. A 2.6 cm cyst is evident in the right ovary. The left ovary was not visualized. No free fluid is evident in the pelvis. IMPRESSION: 1. Single viable intrauterine fetus of 6-7 weeks gestational age. 2. Small right ovarian cyst. Electronically signed by: Devonte Malloy MD (08/01/2018 2:44 PM) [facility]
--- NOTE | 2018-08-01 15:01 | RAD ---
Portable chest, 08/01/2018: HISTORY: Cough, shortness of breath The heart size is normal. No pulmonary infiltrate is seen. There is no evidence of pleural fluid. IMPRESSION: No acute cardiopulmonary abnormality is detected. Electronically signed by: Devonte Malloy MD (08/01/2018 2:57 PM) [facility]
[2018-08-01 15:02] LABS: INFLUENZA A PATIENT NEGATIVE (NEGATIVE); INFLUENZA B PATIENT NEGATIVE (NEGATIVE)
[2018-08-01] MEDS ORDERED: PROMETHAZINE 12.5 MG TABLET. PO ONE (15:45)
[2018-08-01] MEDS ORDERED: ACETAMINOPHEN 325 MG TABLET. PO ONE (15:45)
[2018-08-01] MEDS ORDERED: PROAIR HFA8.5 GM INH (15:53)
[2018-08-03 15:37] LABS: GC PROBE Positive (Negative)
--- NOTE | 2018-08-06 16:39 | VNOTE ---
CALL BACK NOTE CALL BACK Microbiology 08/01/18 Wet Prep - Final, Complete 08/01/18 Urine Culture - Final, Complete 08/01/18 Urine Culture Result 1 (MARIXA) - Final, Complete Patient is positive for gonorrhea and Chlamydia, she was not treated, her phone states the sub-scriber does not accept phone calls SAWYER PHILIPPE APRN Aug 06, 2018 16:39
== END 2018-08-01 16:23 | disposition home or self-care (01) ==
LOC: ER 12:03
DX: O99.511 Diseases of the respiratory system complicating pregnancy, first trimester (principal); J06.9 Acute upper respiratory infection, unspecified; O99.341 Other mental disorders complicating pregnancy, first trimester; F41.9 Anxiety disorder, unspecified; R10.84 Generalized abdominal pain; Z3A.01 Less than 8 weeks gestation of pregnancy
CPT/HCPCS: 36415; 71045; 76801; 80053; 80307; 81001; 83690; 84702; 85025; 87086; 87491; 87591; 87804; 94640; 99285; J7030; J7613; Q0111; Q0169; G0479

== ENCOUNTER 2018-08-29 21:16 | Emergency (ER) | payer MEDICAID, OTHER ==
[~2018-08-29] VITALS: Ht 160 cm; Wt 77.1 kg
[~2018-08-29 21:16] MED LIST changes: +PROAIR HFA8.5 GM INH
[2018-08-29 21:20] VITALS: BP 123/69
--- NOTE | 2018-08-29 21:30 | PHYS DOC ---
Past Medical History Past Medical History: Anxiety, Asthma, Ovarian Cyst, Other Additional Past Medical Histor: BORDERLINE DM2, ulcers, PTSD Past Surgical History: Other Additional Past Surgical Histo: right knee injection Alcohol Use: None Drug Use: None Adult General Chief Complaint Chief Complaint: SEXUALLY TRANSMITTED DISEASE HPI HPI Patient is a 38 year old female with no significant medical history who presents today stating she received letter from the hospital and learned she has STD. Looking back at patient states she tested positive for gonorrhea and chlamydia, patient denies any symptoms. She states she is 3 months and follows up with her [employer]. Review of Systems Review of Systems Constitutional: Denies fever or chills [] GI: Denies abdominal pain, nausea, vomiting, bloody stools or diarrhea [] : Concern for STDs. Denies dysuria or hematuria [] Musculoskeletal: Denies back pain or joint pain [] Integument: Denies rash or skin lesions [] Neurologic: Denies headache, focal weakness or sensory changes [] All other systems were reviewed and found to be within normal limits, except as documented in this note. Current Medications Current Medications Current Medications Medications (Trade) Dose Ordered Sig/Rj Start Time Stop Time Status Last Admin Dose Admin Azithromycin (Zithromax) 1,000 mg 1X ONCE 08/29/18 22:00 08/29/18 22:01 DC 08/29/18 21:46 1,000 MG Ceftriaxone Sodium (Rocephin Im) 250 mg 1X ONCE 08/29/18 22:00 08/29/18 22:01 DC 08/29/18 21:45 250 MG Metronidazole (Flagyl) 2,000 mg 1X ONCE 08/29/18 22:00 08/29/18 22:01 DC 08/29/18 21:45 2,000 MG Allergies Allergies Allergies Coded Allergies Type Severity Reaction Last Updated Verified No Known Drug Allergies 11/08/13 No Physical Exam Physical Exam Constitutional: Well developed, well nourished, no acute distress, non-toxic appearance. [] Abdomen: Bowel sounds normal, soft, no tenderness, no masses, no pulsatile masses. [] Skin: Warm, dry, no erythema, no rash. [] Back: No tenderness, no CVA tenderness. [] Extremities: No tenderness, no cyanosis, no clubbing, ROM intact, no edema. [] Neurologic: Alert and oriented X 3, normal motor function, normal sensory function, no focal deficits noted. [] Psychologic: Affect normal, judgement normal, mood normal. [] EKG EKG [] Radiology/Procedures Radiology/Procedures [] Course & Med Decision Making Course & Med Decision Making Pertinent Labs and Imaging studies reviewed. (See chart for details) This is a 38-year-old female patient presenting to the ED today to be treated for STDs. Patient tested positive for gonorrhea and Chlamydia the last time she is in the ED. She is in the ED with the significant other who is getting treated as well. Patient has no symptoms. Patient was given the standard STD treatment in the ED and discharged. Safe sex education provided. Dragon Disclaimer Dragon Disclaimer This electronic medical record was generated, in whole or in part, using a voice recognition dictation system. Departure Departure Impression: Primary Impression: Sexually transmitted disease Disposition: HOME, SELF-CARE Condition: STABLE Referrals: NO PCP (PCP) follow up in one week TONY SHORE MD Patient Instructions: Sexually Transmitted Disease, [id number] Additional Instructions: You were evaluated in the emergency room for sexually transmitted diseases. We treated you today. Do not have sex for 2 weeks. Use protection at all times. Ensure you contact all your sex partners, let them know you were treated for STDs and ask them to seek treatment too. Scripts Ondansetron (ZOFRAN ODT) 4 Mg Tab.rapdis 1 TAB SL Q8HRS, #15 TAB Prov: ZAYNABLaSAWYER APRN 08/29/18 SAWYER PHILIPPE APRN Aug 29, 2018 21:30
[2018-08-29] MEDS ORDERED: AZITHROMYCIN 250 MG TABLET. PO ONE (22:00)
[2018-08-29] MEDS ORDERED: cefTRIAXone IM 250 MG VIAL IM ONE (22:00)
[2018-08-29] MEDS ORDERED: metroNIDAZOLE 500 MG TABLET PO ONE (22:00)
[2018-08-29] MEDS ORDERED: ONDA4TAB10 SL (22:03)
[2018-08-29] MEDS ORDERED: ONDANSETRON ODT 4 MG TAB.RAPDIS. PO ONE (22:30)
== END 2018-08-29 22:16 | disposition home or self-care (01) ==
LOC: ER 21:16
DX: O26.891 Other specified pregnancy related conditions, first trimester (principal); A56.8 Sexually transmitted chlamydial infection of other sites; A54.9 Gonococcal infection, unspecified; J45.909 Unspecified asthma, uncomplicated; Z3A.00 Weeks of gestation of pregnancy not specified
CPT/HCPCS: 96372; 99284; J0696; Q0144; Q0162

== ENCOUNTER 2019-04-03 15:49 | Inpatient (IN) | payer OTHER ==
[~2019-04-03] VITALS: Ht 160 cm; Wt 100.2 kg
[~2019-04-03 15:49] MED LIST changes: +ALBU2.5V8 INH; +FLUoxetine HCL 20 MG CAPSULE PO SCH; -GABA-586 PO; +GABA300C18 PO; +HYDR-3164 PO; -HYDR-971 PO; -LEVO1IUD IY; +LEVO1IUD3 IY; +ONDA4TAB10 SL; -PROAIR HFA8.5 GM INH
[2019-04-03] MEDS ORDERED: IV NORMAL SALINE 1000ML BAG 1,000 ML IV SCH (16:05)
[2019-04-03 16:16] LABS: BASO # 0.1 x10^3/uL (0.0-0.2); BASO % 1 % (0-3); EOS # 0.1 x10^3/uL (0.0-0.7); EOS % 1 % (0-3); LYMPH # 1.5 x10^3/uL (1.0-4.8); LYMPH % 14 % (24-48); MEAN CORPUSCULAR HEMOGLOBIN 27 pg (25-35); MEAN CORPUSCULAR HGB CONC 33 g/dL (31-37); MEAN CORPUSCULAR VOLUME 80 fL (79-100); MONO # 0.5 x10^3/uL (0.0-1.1); MONO % 5 % (0-9); NEUT # 8.7 x10^3uL (1.8-7.7); NEUT % 80 % (31-73); PLATELET COUNT 342 x10^3/uL (140-400); RED BLOOD COUNT 3.73 x10^6/uL (3.50-5.40); RED CELL DISTRIBUTION WIDTH 14.8 % (11.5-14.5); WHITE BLOOD COUNT 10.9 x10^3/uL (4.0-11.0)
[2019-04-03 16:28] LABS: CALCIUM 8.2 mg/dL (8.5-10.1); CREATININE 1.1 mg/dL (0.6-1.0); GFR 55.6; POTASSIUM 4.3 mmol/L (3.5-5.1)
[2019-04-03 16:31] LABS: ALBUMIN 2.7 g/dL (3.4-5.0); ALBUMIN/GLOBULIN RATIO 0.6 (1.0-1.7); MAGNESIUM 1.9 mg/dL (1.8-2.4); TOTAL BILIRUBIN 0.6 mg/dL (0.2-1.0); TOTAL PROTEIN 7.1 g/dL (6.4-8.2)
[2019-04-03 16:39] LABS: BASE EXCESS ABG 0 mmol/L (-3-3); HCO3 ABG 24 mmol/L (21-28); PCO2 ABG 39 mmHg (35-46); PO2 ABG 66 mmHg (85-108); SAT O2 ABG 92 % (92-99)
[2019-04-03] MEDS ORDERED: methylPREDNISolone SOD SUCC PF 125 MG/2 ML VIAL. IV ONE (16:45)
[2019-04-03] MEDS ORDERED: IPRATRPIUM/ALBUTEROL 0.5/2.5MG 3 ML NEBU. NEB ONE (16:45)
[2019-04-03] MEDS ORDERED: IOHEXOL 350 MG/ML 100 ML VIAL. IV ONE (16:45)
[2019-04-03 17:00] LABS: INFLUENZA A PATIENT NEGATIVE (NEGATIVE); INFLUENZA B PATIENT NEGATIVE (NEGATIVE)
[2019-04-03] MEDS ORDERED: CONTRAST GIVEN. MC PRN (17:00)
--- NOTE | 2019-04-03 17:00 | RAD ---
Examination: CT angiography chest HISTORY: History of shortness of breath COMPARISON: None available Technique: Axial CT angiographic images of chest were performed with IV contrast and coronal and sagittal 3-D MIP reformats are performed. Exposure: One or more of the following individualized dose reduction techniques were utilized for this examination: 1. Automated exposure control 2. Adjustment of the mA and/or kV according to patient size 3. Use of iterative reconstruction technique FINDINGS: The central airways are patent. Mild cardiomegaly. The caliber of the aorta grossly appears unremarkable. Few prominent mediastinal lymph nodes identified with the largest measuring 1.2 cm. There is no evidence of filling defect identified in the main pulmonary arterial trunk and right and left main pulmonary arteries. The evaluation of the distal lobar, segmental branches of the pulmonary arteries is somewhat limited. Diffuse groundglass airspace opacities identified in the bilateral lungs in the in the central portion of the lungs likely congestive changes or infiltrates. No evidence of pleural effusion or pneumothorax. Prominent mild bilateral hilar lymphadenopathy. The visualized liver, spleen demonstrate minimal prominence likely mild hepatosplenomegaly; Mild degenerative changes thoracic spine. IMPRESSION: 1. No evidence of central pulmonary embolism. 2. Diffuse groundglass airspace opacities identified in the bilateral perihilar region likely congestive changes or diffuse infiltrates. Follow-up to resolution. 3. Mild mediastinal and bilateral hilar lymphadenopathy. Electronically signed by: Cheo Zhang MD (04/03/2019 4:58 PM) [facility]
[2019-04-03 17:06] LABS: FIO2 ABG 32
--- NOTE | 2019-04-03 17:08 | PHYS DOC ---
Past Medical History Past Medical History: Anxiety, Asthma, Ovarian Cyst, Other Additional Past Medical Histor: BORDERLINE DM2, ulcers, PTSD, PRE-ECLAMPSIA 02/2019 Past Surgical History: , Other Additional Past Surgical Histo: right knee injection Alcohol Use: None Drug Use: None Adult General Chief Complaint Chief Complaint: SHORTNESS OF BREATH HPI HPI Patient is a 38 year old female who presents with complaining of shortness of breath. Patient had related to preeclampsia on March 08 with edema of bilateral lower extremity that did not get better after her . Patient states she was seen at [facility] 5 days ago because of ed nico bilateral lower extremity and had extensive evaluation and CT of her chest and diagnosed with pneumonia and treated with 5 days of Levaquin and took her last pill of Levaquin today complaining of constant shortness of breath for the last 3 days getting worse with activity. Patient complaining of nonproductive cough and a fever up to 102.8 for the last 3 days with generalized weakness. Patient states she smokes half a pack of cigarettes a day. Patient had O2 sat of 82 at arrival to ER at room air and was started on 2 L of nasal cannula with increase of O2 sat to 96%. Review of Systems Review of Systems Constitutional: Reports fever and chills Eyes: Denies change in visual acuity, redness, or eye pain [] HENT: Denies nasal congestion or sore throat [] Respiratory: Reports cough and shortness of breath Cardiovascular: No additional information not addressed in HPI [] GI: Denies abdominal pain, nausea, vomiting, bloody stools or diarrhea [] : Denies dysuria or hematuria [] Musculoskeletal: Denies back pain or joint pain [] Integument: Denies rash or skin lesions [] Neurologic: Denies headache, focal weakness or sensory changes [] Endocrine: Denies polyuria or polydipsia [] All other systems were reviewed and found to be within normal limits, except as documented in this note. Current Medications Current Medications Current Medications Medications (Trade) Dose Ordered Sig/Rj Start Time Stop Time Status Last Admin Dose Admin Albuterol/ Ipratropium (Duoneb) 3 ml 1X ONCE 04/03/19 16:45 04/03/19 16:46 DC 04/03/19 16:22 3 ML Info (CONTRAST GIVEN -- Rx MONITORING) 1 each PRN DAILY PRN 04/03/19 17:00 04/05/19 16:59 Iohexol (Omnipaque 350 Mg/ml) 75 ml 1X ONCE 04/03/19 16:45 04/03/19 16:51 DC 04/03/19 16:51 75 ML Methylprednisolone Sodium Succinate (SOLU-Medrol 125MG VIAL) 125 mg 1X ONCE 04/03/19 16:45 04/03/19 16:46 DC 04/03/19 16:23 125 MG Sodium Chloride 1,000 ml @ 1,000 mls/hr Q1H 04/03/19 16:05 04/03/19 17:04 DC 04/03/19 16:24 1,000 MLS/HR Allergies Allergies Allergies Coded Allergies Type Severity Reaction Last Updated Verified No Known Drug Allergies 11/08/13 No Physical Exam Physical Exam Constitutional: Well developed, well nourished, moderate distress, non-toxic appearance. [] HENT: Normocephalic, atraumatic, oropharynx moist. Eyes: PERRLA, EOMI, conjunctiva normal, no discharge. [] Neck: Normal range of motion, no tenderness, supple, no stridor. [] Cardiovascular:Heart rate regular rhythm, no murmur [] Lungs & Thorax: Bilateral breath sounds clear to auscultation [] Abdomen: Bowel sounds normal, soft, no tenderness, no masses, no pulsatile masses. [] Skin: Warm, dry, no erythema, no rash. [] Back: No tenderness, no CVA tenderness. [] Extremities: No tenderness, no cyanosis, no clubbing, ROM intact, bilateral lower extremity 3+ edema. [] Neurologic: Alert and oriented X 3, normal motor function, normal sensory function, no focal deficits noted. [] Psychologic: Affect anxious, judgement normal, mood normal. [] Current Patient Data Vital Signs Vital Signs Date Time Temp Pulse Resp B/P (MAP) Pulse Ox O2 Delivery O2 Flow Rate FiO2 04/03/19 16:22 96 Nasal Cannula 3.0 04/03/19 16:04 98.2 81 24 108/57 (74) 98.2 Lab Values Laboratory Tests Test 04/03/19 15:50 04/03/19 16:22 04/03/19 16:25 White Blood Count 10.9 x10^3/uL (4.0-11.0) Red Blood Count 3.73 x10^6/uL (3.50-5.40) Hemoglobin 10.0 g/dL (12.0-15.5) L Hematocrit 30.0 % (36.0-47.0) L Mean Corpuscular Volume 80 fL (79-100) Mean Corpuscular Hemoglobin 27 pg (25-35) Mean Corpuscular Hemoglobin Concent 33 g/dL (31-37) Red Cell Distribution Width 14.8 % (11.5-14.5) H Platelet Count 342 x10^3/uL (140-400) Neutrophils (%) (Auto) 80 % (31-73) H Lymphocytes (%) (Auto) 14 % (24-48) L Monocytes (%) (Auto) 5 % (0-9) Eosinophils (%) (Auto) 1 % (0-3) Basophils (%) (Auto) 1 % (0-3) Neutrophils # (Auto) 8.7 x10^3uL (1.8-7.7) H Lymphocytes # (Auto) 1.5 x10^3/uL (1.0-4.8) Monocytes # (Auto) 0.5 x10^3/uL (0.0-1.1) Eosinophils # (Auto) 0.1 x10^3/uL (0.0-0.7) Basophils # (Auto) 0.1 x10^3/uL (0.0-0.2) D-Dimer (Wandy) 1.60 ug/mlFEU (0.00-0.50) H Sodium Level 139 mmol/L (136-145) Potassium Level 4.3 mmol/L (3.5-5.1) Chloride Level 102 mmol/L (98-107) Carbon Dioxide Level 27 mmol/L (21-32) Anion Gap 10 (6-14) Blood Urea Nitrogen 12 mg/dL (7-20) Creatinine 1.1 mg/dL (0.6-1.0) H Estimated GFR (Cockcroft-Gault) 55.6 BUN/Creatinine Ratio 11 (6-20) Glucose Level 84 mg/dL (70-99) Calcium Level 8.2 mg/dL (8.5-10.1) L Magnesium Level 1.9 mg/dL (1.8-2.4) Total Bilirubin 0.6 mg/dL (0.2-1.0) Aspartate Amino Transferase (AST) 30 U/L (15-37) Alanine Aminotransferase (ALT) 28 U/L (14-59) Alkaline Phosphatase 150 U/L (46-116) H Creatine Kinase 126 U/L (26-192) Troponin I Quantitative < 0.017 ng/mL (0.000-0.055) GF-Fiq-W-Type Natriuretic Peptide 2896 pg/mL (0-124) H Total Protein 7.1 g/dL (6.4-8.2) Albumin 2.7 g/dL (3.4-5.0) L Albumin/Globulin Ratio 0.6 (1.0-1.7) L Influenza Type A Antigen Negative (NEGATIVE) Influenza Type B Antigen Negative (NEGATIVE) O2 Saturation 92 % (92-99) Arterial Blood pH 7.41 (7.35-7.45) Arterial Blood pCO2 at Patient Temp 39 mmHg (35-46) Arterial Blood pO2 at Patient Temp 66 mmHg (85-108) L Arterial Blood HCO3 24 mmol/L (21-28) Arterial Blood Base Excess 0 mmol/L (-3-3) FiO2 32 Laboratory Tests 04/03/19 15:50 Laboratory Tests 04/03/19 15:50 EKG EKG EKG Interpreted by me. EKG at 1608 showed normal sinus rhythm at rate of 75, normal MI and QT intervals, no acute ST and T-wave abnormalities. Radiology/Procedures Radiology/Procedures [facility] [address] [place], [place] [id number] IMAGING REPORT Signed PATIENT: INÉS ALMONTE ACCOUNT: [id number] : 1980 LOCATION: ER AGE: 38 SEX: F EXAM STATUS: REG ER ORD. PHYSICIAN: ALESSANDRA RAMIREZ MD REASON: shortness of breath; OMNI 350, 75ML PROCEDURE: CT ANGIOGRAPHY CHEST Examination: CT angiography chest HISTORY: History of shortness of breath COMPARISON: None available Technique: Axial CT angiographic images of chest were performed with IV contrast and coronal and sagittal 3-D MIP reformats are performed. Exposure: One or more of the following individualized dose reduction techniques were utilized for this examination: 1. Automated exposure control 2. Adjustment of the mA and/or kV according to patient size 3. Use of iterative reconstruction technique FINDINGS: The central airways are patent. Mild cardiomegaly. The caliber of the aorta grossly appears unremarkable. Few prominent mediastinal lymph nodes identified with the largest measuring 1.2 cm. There is no evidence of filling defect identified in the main pulmonary arterial trunk and right and left main pulmonary arteries. The evaluation of the distal lobar, segmental branches of the pulmonary arteries is somewhat limited. Diffuse groundglass airspace opacities identified in the bilateral lungs in the in the central portion of the lungs likely congestive changes or infiltrates. No evidence of pleural effusion or pneumothorax. Prominent mild bilateral hilar lymphadenopathy. The visualized liver, spleen demonstrate minimal prominence likely mild hepatosplenomegaly; Mild degenerative changes thoracic spine. IMPRESSION: 1. No evidence of central pulmonary embolism. 2. Diffuse groundglass airspace opacities identified in the bilateral perihilar region likely congestive changes or diffuse infiltrates. Follow-up to resolution. 3. Mild mediastinal and bilateral hilar lymphadenopathy. Electronically signed by: Cheo Zhang MD (04/03/2019 4:58 PM) [facility] DICTATED and SIGNED BY: CHEO ZHANG MD DATE: 04/03/19 1541 Course & Med Decision Making Course & Med Decision Making Pertinent Labs and Imaging studies reviewed. (See chart for details) Evaluation of patient in ER showed 38-year-old female patient with shortness of breath after about 2 weeks ago. Patient has no extremity edema and O2 sats of 80% at arrival to ER. CT of chest showed bilateral infiltration and patient treated with antibiotic and IV fluid that was hold after results of BNP of 2800 she of cardiomyopathy.Patient requiring admission for further evaluation and treatment. Discussed with Dr. Gomez who is in agreement with admission. Discussed findings and plan with patient and family, who acknowledge understanding and agreement. Dragon Disclaimer Dragon Disclaimer This electronic medical record was generated, in whole or in part, using a voice recognition dictation system. Departure Departure Impression: Primary Impression: HCAP (healthcare-associated pneumonia) Additional Impressions: Hypoxia Tobacco abuse CHF (congestive heart failure) Anemia cardiomyopathy Disposition: 09 ADMITTED INPATIENT (at 1738) Admitting Physician: Other (Dr Gomez scented admission at 1737) Condition: GUARDED Referrals: NO PCP (PCP) Critical Care Time Critical care time was 70 minutes exclusive of procedures. Problem Qualifiers Additional Impressions: CHF (congestive heart failure) Heart failure type: unspecified Heart failure chronicity: unspecified Qualified Codes: I50.9 - Heart failure, unspecified Anemia Anemia type: unspecified type Qualified Codes: D64.9 - Anemia, unspecified ALESSANDRA RAMIREZ MD April 03, 2019 17:08
[2019-04-03] MEDS ORDERED: VANCOMYCIN 1GM IVPB FOR OMNI 250 ML IV ONE (17:15)
[2019-04-03] MEDS ORDERED: VANCOMYCIN 2 GM in IV NORMAL SALINE 500ML BAG 500 ML IV ONE (17:45)
[2019-04-03] MEDS ORDERED: PIPERACILLIN/TAZOBACTAM 3.375 GM in IV NORMAL SALINE 50ML 50 ML IV ONE (17:45)
[2019-04-03 18:17] VITALS: BP 115/58
[2019-04-03] MEDS ORDERED: HYDROcodone/APAP 5/325MG 1 TAB TABLET PO PRN (18:45)
[2019-04-03] MEDS ORDERED: ONDANSETRON PF 4 MG/2 ML VIAL. IV PRN (19:30)
[2019-04-03] MEDS ORDERED: ACETAMINOPHEN 325 MG TABLET. PO PRN (19:30)
[2019-04-03] MEDS: FUROSEMIDE 40 MG/4 ML VIAL. IVP SCH (20:07)
[2019-04-03 22:45] VITALS: BP 107/58
[2019-04-03] MEDS ORDERED: DULoxetine HCL 20 MG CAPSULE.DR PO ONE (23:00)
[2019-04-03] MEDS ORDERED: QUEtiapine 25 MG TABLET. PO ONE (23:00)
[2019-04-03] MEDS: HYDROcodone/APAP 10/325 1 TAB TABLET PO PRN (23:36)
[2019-04-03] MEDS: ONDANSETRON ODT 4 MG TAB.RAPDIS. PO SCH (23:37)
[2019-04-03] MEDS: ZOLPIDEM 5 MG TABLET. PO PRN (23:37)
[2019-04-04] MEDS: FLUoxetine HCL 20 MG CAPSULE PO SCH ×2 (00:07→08:26)
[2019-04-04] MEDS: ALBUTEROL SULFATE 2.5 MG/3 ML NEBU. NEB PRN ×6 (00:15→19:36)
--- NOTE | 2019-04-04 01:47 | RAD ---
AP chest. HISTORY: Short of breath AP view was taken of the chest. There are diffuse bilateral infiltrates in the lungs. Heart is normal in size. There is no pleural effusion. IMPRESSION: 1. Bilateral diffuse infiltrates. Electronically signed by: Lopez Yang MD (04/04/2019 1:44 AM) [facility]
[2019-04-04] MEDS: HYDROcodone/APAP 10/325 1 TAB TABLET PO PRN ×3 (03:39→13:22)
[2019-04-04] MEDS: ONDANSETRON ODT 4 MG TAB.RAPDIS. PO SCH ×3 (03:39→21:57)
[2019-04-04 03:50] VITALS: BP 105/56
[2019-04-04 05:33] LABS: ALBUMIN 2.4 g/dL (3.4-5.0); CALCIUM 8.1 mg/dL (8.5-10.1); GFR 62.1; PHOSPHORUS 3.7 mg/dL (2.6-4.7)
--- NOTE | 2019-04-04 06:59 | EKG ---
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
[2019-04-04 07:00] VITALS: BP 99/58
[2019-04-04 07:07] LABS: BILIRUBIN,URINE NEGATIVE (NEG); CLARITY,URINE CLEAR; COLOR,URINE YELLOW; NITRITE,URINE NEGATIVE (NEG); PROTEIN,URINE NEGATIVE (NEG-TRACE)
[2019-04-04 07:22] LABS: BACTERIA,URINE 0 /HPF (0-FEW); RBC,URINE 0 /HPF (0-2); SQUAMOUS EPITHELIAL CELL,UR MOD /LPF
[2019-04-04] MEDS: FUROSEMIDE 40 MG/4 ML VIAL. IVP SCH ×2 (08:25→13:23)
[2019-04-04] MEDS ORDERED: clonazePAM 0.5 MG TABLET PO ONE (09:00)
--- NOTE | 2019-04-04 09:07 | PDOC ---
Infectious Disease Note Vital Sign Vital Signs Vital Signs Date Time Temp Pulse Resp B/P (MAP) Pulse Ox O2 Delivery O2 Flow Rate FiO2 04/04/19 08:39 93 Nasal Cannula 4.0 04/04/19 07:00 96.4 60 18 99/58 (72) 96.4 Labs Lab Laboratory Tests Test 04/03/19 15:50 04/03/19 16:22 04/03/19 16:25 04/04/19 04:00 White Blood Count 10.9 x10^3/uL (4.0-11.0) Red Blood Count 3.73 x10^6/uL (3.50-5.40) Hemoglobin 10.0 g/dL (12.0-15.5) Hematocrit 30.0 % (36.0-47.0) Mean Corpuscular Volume 80 fL (79-100) Mean Corpuscular Hemoglobin 27 pg (25-35) Mean Corpuscular Hemoglobin Concent 33 g/dL (31-37) Red Cell Distribution Width 14.8 % (11.5-14.5) Platelet Count 342 x10^3/uL (140-400) Neutrophils (%) (Auto) 80 % (31-73) Lymphocytes (%) (Auto) 14 % (24-48) Monocytes (%) (Auto) 5 % (0-9) Eosinophils (%) (Auto) 1 % (0-3) Basophils (%) (Auto) 1 % (0-3) Neutrophils # (Auto) 8.7 x10^3uL (1.8-7.7) Lymphocytes # (Auto) 1.5 x10^3/uL (1.0-4.8) Monocytes # (Auto) 0.5 x10^3/uL (0.0-1.1) Eosinophils # (Auto) 0.1 x10^3/uL (0.0-0.7) Basophils # (Auto) 0.1 x10^3/uL (0.0-0.2) D-Dimer (Wandy) 1.60 ug/mlFEU (0.00-0.50) Sodium Level 139 mmol/L (136-145) 141 mmol/L (136-145) Potassium Level 4.3 mmol/L (3.5-5.1) 4.0 mmol/L (3.5-5.1) Chloride Level 102 mmol/L (98-107) 104 mmol/L (98-107) Carbon Dioxide Level 27 mmol/L (21-32) 26 mmol/L (21-32) Anion Gap 10 (6-14) 11 (6-14) Blood Urea Nitrogen 12 mg/dL (7-20) 13 mg/dL (7-20) Creatinine 1.1 mg/dL (0.6-1.0) 1.0 mg/dL (0.6-1.0) Estimated GFR (Cockcroft-Gault) 55.6 62.1 BUN/Creatinine Ratio 11 (6-20) Glucose Level 84 mg/dL (70-99) 224 mg/dL (70-99) Calcium Level 8.2 mg/dL (8.5-10.1) 8.1 mg/dL (8.5-10.1) Magnesium Level 1.9 mg/dL (1.8-2.4) 2.0 mg/dL (1.8-2.4) Total Bilirubin 0.6 mg/dL (0.2-1.0) Aspartate Amino Transf (AST/SGOT) 30 U/L (15-37) Alanine Aminotransferase (ALT/SGPT) 28 U/L (14-59) Alkaline Phosphatase 150 U/L (46-116) Creatine Kinase 126 U/L (26-192) Troponin I Quantitative < 0.017 ng/mL (0.000-0.055) UX-Wzj-L-Type Natriuretic Peptide 2896 pg/mL (0-124) Total Protein 7.1 g/dL (6.4-8.2) Albumin 2.7 g/dL (3.4-5.0) 2.4 g/dL (3.4-5.0) Albumin/Globulin Ratio 0.6 (1.0-1.7) Influenza Type A Antigen Negative (NEGATIVE) Influenza Type B Antigen Negative (NEGATIVE) O2 Saturation 92 % (92-99) Arterial Blood pH 7.41 (7.35-7.45) Arterial Blood pCO2 at Patient Temp 39 mmHg (35-46) Arterial Blood pO2 at Patient Temp 66 mmHg (85-108) Arterial Blood HCO3 24 mmol/L (21-28) Arterial Blood Base Excess 0 mmol/L (-3-3) FiO2 32 Phosphorus Level 3.7 mg/dL (2.6-4.7) Thyroid Stimulating Hormone (TSH) 0.590 uIU/mL (0.358-3.74) Test 04/04/19 06:20 Urine Collection Type Unknown Urine Color Yellow Urine Clarity Clear Urine pH 6.0 Urine Specific [place] 1.020 Urine Protein Negative mg/dL (NEG-TRACE) Urine Glucose (UA) Negative mg/dL (NEG) Urine Ketones (Stick) Negative mg/dL (NEG) Urine Blood Small (NEG) Urine Nitrite Negative (NEG) Urine Bilirubin Negative (NEG) Urine Urobilinogen Dipstick 1.0 mg/dL (0.2 mg/dL) Urine Leukocyte Esterase Negative (NEG) Urine RBC 0 /HPF (0-2) Urine WBC 5-10 /HPF (0-4) Urine Squamous Epithelial Cells Mod /LPF Urine Bacteria 0 /HPF (0-FEW) Objective Assessment Fever at home CHF h/o Preeclampsia Post ? Pneumonia Plan Plan of Care zosyn for now soon to d/c check cultures check echo LEO CROWELL MD April 04, 2019 09:07
[2019-04-04] MEDS ORDERED: PIPERACILLIN/TAZOBACTAM 3.375 GM in IV NORMAL SALINE 50ML 50 ML IV ONE (09:30)
--- NOTE | 2019-04-04 09:58 | PDOC1 ---
History and Physical Date of Admission Date of Admission DATE: 04/04/19 TIME: 09:58 Identification/Chief Complaint Chief Complaint SEEN IN ER, 38 year old female who presents with complaining of shortness of breath. Patient had related to preeclampsia on March 08 with edema of bilateral lower extremity that did not get better after her . Patient states she was seen at [facility] 5 days ago because of edema bilateral lower extremity and had extensive evaluation and CT of her chest and diagnosed with pneumonia and treated with 5 days of Levaquin and took her last pill of Levaquin 04/03 complaining of constant shortness of breath for the last 3 days getting worse with activity. Patient complaining of nonproductive cough and a fever up to 102.8 for the last 3 days with generalized weakness. Patient states she smokes half a pack of cigarettes a day. Patient had O2 sat of 82 at arrival to ER, ADMITTED WITH ACUTE HYPOXIC RESP FAILURE treated with 5 days of Levaquin Past Medical History Past Medical History Past Medical History Past Medical History: Anxiety, Asthma, Ovarian Cyst, Other Additional Past Medical Histor: BORDERLINE DM2, ulcers, PTSD, PRE-ECLAMPSIA 02/2019 Past Surgical History: , Other Additional Past Surgical Histo: right knee injection Alcohol Use: None Drug Use: None family hx obesity Past Surgical History Past Surgical History: Family History Family History: Hypertension Social History Smoke: <1 pack per day ALCOHOL: none Drugs: None Current Problem List Problem List Problems Medical Problems: (1) Anemia Status: Acute (2) CHF (congestive heart failure) Status: Acute (3) HCAP (healthcare-associated pneumonia) Status: Acute (4) Hypoxia Status: Acute (5) cardiomyopathy Status: Acute (6) Tobacco abuse Status: Acute Current Medications Current Medications Current Medications Sodium Chloride 1,000 ml @ 1,000 mls/hr Q1H IV Last administered on 04/03/19at 16:24; Start 04/03/19 at 16:05; Stop 04/03/19 at 17:04; Status DC Albuterol/ Ipratropium (Duoneb) 3 ml 1X ONCE NEB Last administered on 04/03/19at 16:22; Start 04/03/19 at 16:45; Stop 04/03/19 at 16:46; Status DC Methylprednisolone Sodium Succinate (SOLU-Medrol 125MG VIAL) 125 mg 1X ONCE IV Last administered on 04/03/19 16:23; Start 04/03/19 at 16:45; Stop 04/03/19 at 16:46; Status DC Iohexol (Omnipaque 350 Mg/ml) 75 ml 1X ONCE IV Last administered on 04/03/19at 16:51; Start 04/03/19 at 16:45; Stop 04/03/19 at 16:51; Status DC Info (CONTRAST GIVEN -- Rx MONITORING) 1 each PRN DAILY PRN MC SEE COMMENTS; Start 04/03/19 at 17:00; Stop 04/05/19 at 16:59 Piperacillin Sod/ Tazobactam Sod 3.375 gm/Sodium Chloride 50 ml @ 100 mls/hr 1X ONCE IV Last administered on 04/03/19at 17:00; Start 04/03/19 at 17:45; Stop 04/03/19 at 18:14; Status DC Vancomycin HCl 250 ml @ 250 mls/hr 1X ONCE IV ; Start 04/03/19 at 17:15; Stop 04/03/19 at 18:14; Status UNV Vancomycin HCl 2 gm/Sodium Chloride 500 ml @ 250 mls/hr 1X ONCE IV Last administered on 04/03/19at 17:42; Start 04/03/19 at 17:45; Stop 04/03/19 at 19:44; Status DC Furosemide (Lasix) 40 mg [id number] IVP Last administered on 04/04/19 08:25; Start 04/03/19 at 20:00 Acetaminophen/ Hydrocodone Bitart (Lortab 5/325) 1 tab PRN Q4HRS PRN PO PAIN Last administered on 04/03/19 20:09; Start 04/03/19 at 18:45; Stop 04/03/19 at 22:37; Status DC Ondansetron HCl (Zofran Odt) 4 mg Q8HRS PO Last administered on 04/04/19at 03:39; Start 04/03/19 at 22:00 Senna/Docusate Sodium (Senna Plus) 2 tab PRN BID PRN PO CONSTIPATION; Start 04/03/19 at 19:30 Ondansetron HCl (Zofran) 4 mg PRN Q6HRS PRN IV NAUSEA/VOMITING; Start 04/03/19 at 19:30 Acetaminophen (Tylenol) 650 mg PRN Q6HRS PRN PO MILD PAIN / TEMP; Start 04/03/19 at 19:30 Fluoxetine HCl (PROzac) 20 mg DAILY PO Last administered on 04/03/19at 23:36; Start 04/03/19 at 09:00; Stop 04/03/19 at 23:44; Status DC Zolpidem Tartrate (Ambien) 5 mg PRN QHS PRN PO INSOMNIA Last administered on 04/03/19at 23:37; Start 04/03/19 at 22:30 Acetaminophen/ Hydrocodone Bitart (Lortab 10/325) 2 tab PRN Q4HRS PRN PO PAIN Last administered on 04/04/19at 08:27; Start 04/03/19 at 22:30 Albuterol Sulfate (Ventolin Neb Soln) 2.5 mg PRN Q4HRS PRN NEB SHORTNESS OF BREATH Last administered on 04/04/19at 08:37; Start 04/03/19 at 22:30 Duloxetine HCl (Cymbalta) 20 mg 1X ONCE PO ; Start 04/03/19 at 23:00; Stop 04/03/19 at 23:01; Status Cancel Quetiapine Fumarate (SEROquel) 50 mg 1X ONCE PO ; Start 04/03/19 at 23:00; Stop 04/03/19 at 23:01; Status Cancel Fluoxetine HCl (PROzac) 80 mg DAILY PO Last administered on 04/04/19at 08:26; Start 04/03/19 at 23:55 Clonazepam (KlonoPIN) 0.5 mg 1X ONCE PO Last administered on 04/04/19at 09:21; Start 04/04/19 at 09:00; Stop 04/04/19 at 09:03; Status DC Piperacillin Sod/ Tazobactam Sod 3.375 gm/Sodium Chloride 50 ml @ 100 mls/hr Q6HRS IV ; Start 04/04/19 at 14:00 Piperacillin Sod/ Tazobactam Sod 3.375 gm/Sodium Chloride 50 ml @ 100 mls/hr 1X ONCE IV ; Start 04/04/19 at 09:30; Stop 04/04/19 at 09:59 Active Scripts Active Zofran Odt (Ondansetron) 4 Mg Tab.rapdis 1 Tab SL Q8HRS Proair Hfa Inhaler (Albuterol Sulfate) 8.5 Gm Hfa.aer.ad 1 Puff INH PRN Q6HRS PRN [place] 5-325 Tablet (Acetaminophen/Hydrocodone Bitart) 1 Each Tablet 1 Tab PO Q4- 6HRS [place] 5-325 Tablet (Acetaminophen/Hydrocodone Bitart) 1 Each Tablet 1 Tab PO BID 3 Days [place] 5-325 Tablet (Acetaminophen/Hydrocodone Bitart) 1 Each Tablet 1 Tab PO PRN Q6HRS PRN Amoxicillin 500 Mg Capsule 1 Cap PO QID Ibuprofen 800 Mg Tablet 800 Mg PO PRN Q6HRS PRN 10 Days Penicillin V Potassium 500 Mg Tablet 1 Tab PO QID Amoxicillin 875 Mg Tablet 1 Tab PO BID Bentyl (Dicyclomine Hcl) 10 Mg Capsule 10 Mg PO QID PRN Naproxen 250 Mg Tablet 250 Mg PO BID PRN Macrobid 100 Mg Capsule (Nitrofurantoin Monohyd/M-Cryst) 100 Mg Capsule 1 Cap PO BID Flagyl (Metronidazole) 500 Mg Tablet 1 Tab PO BID Tylenol With Codeine #3 Tablet (Acetaminophen/Codeine Phosphate) 1 Each Tablet 1 Tab PO PRN Q6HRS PRN Bactrim Ds Tablet (Sulfamethoxazole/Trimethoprim) 1 Each Tablet 1 Tab PO BID Reported Klonopin (Clonazepam) 1 Mg Tablet 1 Mg PO DAILY Neurontin (Gabapentin) 600 Mg Tablet 600 Mg PO TID Effexor Xr (Venlafaxine Hcl) 150 Mg Cap.er.24h 300 Mg PO DAILY Hydrocodone-Apap 10-300 (Hydrocodone Bit/Acetaminophen) 1 Each Tablet 1 Tab PO PRN Q6HRS PRN Oxycodone-Acetaminophen 10-325 (Oxycodone Hcl/Acetaminophen) 1 Each Tablet 1 Each PO Effexor Xr (Venlafaxine Hcl) 37.5 Mg Cap.er.24h 37.5 Mg PO Mirena (Levonorgestrel) 1 Each Iud 1 Each IY Lorazepam 0.5 Mg Tablet 0.5 Mg PO Allergies Allergies: Coded Allergies: No Known Drug Allergies (Unverified , 11/08/13) ROS Review of System Review of Systems Review of Systems Constitutional: Reports fever and chills Eyes: Denies change in visual acuity, redness, or eye pain [] HENT: Denies nasal congestion or sore throat [] Respiratory: Reports cough and shortness of breath Cardiovascular: No additional information not addressed in HPI [] GI: Denies abdominal pain, nausea, vomiting, bloody stools or diarrhea [] : Denies dysuria or hematuria [] Musculoskeletal: Denies back pain or joint pain [] Integument: Denies rash or skin lesions [] Neurologic: Denies headache, focal weakness or sensory changes [] Endocrine: Denies polyuria or polydipsia [] 14 PT systems were reviewed and found to be within normal limits, except as documented Physical Exam Physical Exam Physical Exam Physical Exam Constitutional: Well developed, well nourished, moderate distress, non-toxic appearance. [] HENT: Normocephalic, atraumatic, oropharynx moist. Eyes: PERRLA, EOMI, conjunctiva normal, no discharge. [] Neck: Normal range of motion, no tenderness, supple, no stridor. [] Cardiovascular:Heart rate regular rhythm, no murmur [] Lungs & Thorax: Bilateral breath sounds clear to auscultation [] Abdomen: Bowel sounds normal, soft, no tenderness, no masses, no pulsatile masses. [] Skin: Warm, dry, no erythema, no rash. [] Back: No tenderness, no CVA tenderness. [] Extremities: No tenderness, no cyanosis, no clubbing, ROM intact, bilateral lower extremity 3+ edema. [] Neurologic: Alert and oriented X 3, normal motor function, normal sensory function, no focal deficits noted. [] Psychologic: Affect anxious, judgement normal, mood normal. [] General: Alert, Oriented X3, Cooperative, mild distress, moderate distress Heart: RRR Breasts: Not examined Abdomen: Normal bowel sounds, Soft Skin: No significant lesion Neuro: Normal speech, Cranial nerves 3-12 NL Psych/Mental Status: Mental status NL, Mood NL Vitals Vitals Vital Signs Date Time Temp Pulse Resp B/P (MAP) Pulse Ox O2 Delivery O2 Flow Rate FiO2 04/04/19 08:39 93 Nasal Cannula 4.0 04/04/19 07:00 96.4 60 18 99/58 (72) 96.4 Labs Labs Laboratory Tests Test 04/03/19 15:50 04/03/19 16:22 04/03/19 16:25 04/04/19 04:00 White Blood Count 10.9 x10^3/uL (4.0-11.0) Red Blood Count 3.73 x10^6/uL (3.50-5.40) Hemoglobin 10.0 g/dL (12.0-15.5) Hematocrit 30.0 % (36.0-47.0) Mean Corpuscular Volume 80 fL (79-100) Mean Corpuscular Hemoglobin 27 pg (25-35) Mean Corpuscular Hemoglobin Concent 33 g/dL (31-37) Red Cell Distribution Width 14.8 % (11.5-14.5) Platelet Count 342 x10^3/uL (140-400) Neutrophils (%) (Auto) 80 % (31-73) Lymphocytes (%) (Auto) 14 % (24-48) Monocytes (%) (Auto) 5 % (0-9) Eosinophils (%) (Auto) 1 % (0-3) Basophils (%) (Auto) 1 % (0-3) Neutrophils # (Auto) 8.7 x10^3uL (1.8-7.7) Lymphocytes # (Auto) 1.5 x10^3/uL (1.0-4.8) Monocytes # (Auto) 0.5 x10^3/uL (0.0-1.1) Eosinophils # (Auto) 0.1 x10^3/uL (0.0-0.7) Basophils # (Auto) 0.1 x10^3/uL (0.0-0.2) D-Dimer (Wandy) 1.60 ug/mlFEU (0.00-0.50) Sodium Level 139 mmol/L (136-145) 141 mmol/L (136-145) Potassium Level 4.3 mmol/L (3.5-5.1) 4.0 mmol/L (3.5-5.1) Chloride Level 102 mmol/L (98-107) 104 mmol/L (98-107) Carbon Dioxide Level 27 mmol/L (21-32) 26 mmol/L (21-32) Anion Gap 10 (6-14) 11 (6-14) Blood Urea Nitrogen 12 mg/dL (7-20) 13 mg/dL (7-20) Creatinine 1.1 mg/dL (0.6-1.0) 1.0 mg/dL (0.6-1.0) Estimated GFR (Cockcroft-Gault) 55.6 62.1 BUN/Creatinine Ratio 11 (6-20) Glucose Level 84 mg/dL (70-99) 224 mg/dL (70-99) Calcium Level 8.2 mg/dL (8.5-10.1) 8.1 mg/dL (8.5-10.1) Magnesium Level 1.9 mg/dL (1.8-2.4) 2.0 mg/dL (1.8-2.4) Total Bilirubin 0.6 mg/dL (0.2-1.0) Aspartate Amino Transf (AST/SGOT) 30 U/L (15-37) Alanine Aminotransferase (ALT/SGPT) 28 U/L (14-59) Alkaline Phosphatase 150 U/L (46-116) Creatine Kinase 126 U/L (26-192) Troponin I Quantitative < 0.017 ng/mL (0.000-0.055) [id number]-Nqn-Q-Type Natriuretic Peptide 2896 pg/mL (0-124) Total Protein 7.1 g/dL (6.4-8.2) Albumin 2.7 g/dL (3.4-5.0) 2.4 g/dL (3.4-5.0) Albumin/Globulin Ratio 0.6 (1.0-1.7) Influenza Type A Antigen Negative (NEGATIVE) Influenza Type B Antigen Negative (NEGATIVE) O2 Saturation 92 % (92-99) Arterial Blood pH 7.41 (7.35-7.45) Arterial Blood pCO2 at Patient Temp 39 mmHg (35-46) Arterial Blood pO2 at Patient Temp 66 mmHg (85-108) Arterial Blood HCO3 24 mmol/L (21-28) Arterial Blood Base Excess 0 mmol/L (-3-3) FiO2 32 Phosphorus Level 3.7 mg/dL (2.6-4.7) Thyroid Stimulating Hormone (TSH) 0.590 uIU/mL (0.358-3.74) Test 04/04/19 06:20 Urine Collection Type Unknown Urine Color Yellow Urine Clarity Clear Urine pH 6.0 Urine Specific Hope 1.020 Urine Protein Negative mg/dL (NEG-TRACE) Urine Glucose (UA) Negative mg/dL (NEG) Urine Ketones (Stick) Negative mg/dL (NEG) Urine Blood Small (NEG) Urine Nitrite Negative (NEG) Urine Bilirubin Negative (NEG) Urine Urobilinogen Dipstick 1.0 mg/dL (0.2 mg/dL) Urine Leukocyte Esterase Negative (NEG) Urine RBC 0 /HPF (0-2) Urine WBC 5-10 /HPF (0-4) Urine Squamous Epithelial Cells Mod /LPF Urine Bacteria 0 /HPF (0-FEW) Laboratory Tests Test 04/03/19 15:50 04/03/19 16:22 04/03/19 16:25 04/04/19 04:00 White Blood Count 10.9 x10^3/uL (4.0-11.0) Red Blood Count 3.73 x10^6/uL (3.50-5.40) Hemoglobin 10.0 g/dL (12.0-15.5) Hematocrit 30.0 % (36.0-47.0) Mean Corpuscular Volume 80 fL (79-100) Mean Corpuscular Hemoglobin 27 pg (25-35) Mean Corpuscular Hemoglobin Concent 33 g/dL (31-37) Red Cell Distribution Width 14.8 % (11.5-14.5) Platelet Count 342 x10^3/uL (140-400) Neutrophils (%) (Auto) 80 % (31-73) Lymphocytes (%) (Auto) 14 % (24-48) Monocytes (%) (Auto) 5 % (0-9) Eosinophils (%) (Auto) 1 % (0-3) Basophils (%) (Auto) 1 % (0-3) Neutrophils # (Auto) 8.7 x10^3uL (1.8-7.7) Lymphocytes # (Auto) 1.5 x10^3/uL (1.0-4.8) Monocytes # (Auto) 0.5 x10^3/uL (0.0-1.1) Eosinophils # (Auto) 0.1 x10^3/uL (0.0-0.7) Basophils # (Auto) 0.1 x10^3/uL (0.0-0.2) D-Dimer (Wandy) 1.60 ug/mlFEU (0.00-0.50) Sodium Level 139 mmol/L (136-145) 141 mmol/L (136-145) Potassium Level 4.3 mmol/L (3.5-5.1) 4.0 mmol/L (3.5-5.1) Chloride Level 102 mmol/L (98-107) 104 mmol/L (98-107) Carbon Dioxide Level 27 mmol/L (21-32) 26 mmol/L (21-32) Anion Gap 10 (6-14) 11 (6-14) Blood Urea Nitrogen 12 mg/dL (7-20) 13 mg/dL (7-20) Creatinine 1.1 mg/dL (0.6-1.0) 1.0 mg/dL (0.6-1.0) Estimated GFR (Cockcroft-Gault) 55.6 62.1 BUN/Creatinine Ratio 11 (6-20) Glucose Level 84 mg/dL (70-99) 224 mg/dL (70-99) Calcium Level 8.2 mg/dL (8.5-10.1) 8.1 mg/dL (8.5-10.1) Magnesium Level 1.9 mg/dL (1.8-2.4) 2.0 mg/dL (1.8-2.4) Total Bilirubin 0.6 mg/dL (0.2-1.0) Aspartate Amino Transf (AST/SGOT) 30 U/L (15-37) Alanine Aminotransferase (ALT/SGPT) 28 U/L (14-59) Alkaline Phosphatase 150 U/L (46-116) Creatine Kinase 126 U/L (26-192) Troponin I Quantitative < 0.017 ng/mL (0.000-0.055) XS-Odv-C-Type Natriuretic Peptide 2896 pg/mL (0-124) Total Protein 7.1 g/dL (6.4-8.2) Albumin 2.7 g/dL (3.4-5.0) 2.4 g/dL (3.4-5.0) Albumin/Globulin Ratio 0.6 (1.0-1.7) Influenza Type A Antigen Negative (NEGATIVE) Influenza Type B Antigen Negative (NEGATIVE) O2 Saturation 92 % (92-99) Arterial Blood pH 7.41 (7.35-7.45) Arterial Blood pCO2 at Patient Temp 39 mmHg (35-46) Arterial Blood pO2 at Patient Temp 66 mmHg (85-108) Arterial Blood HCO3 24 mmol/L (21-28) Arterial Blood Base Excess 0 mmol/L (-3-3) FiO2 32 Phosphorus Level 3.7 mg/dL (2.6-4.7) Thyroid Stimulating Hormone (TSH) 0.590 uIU/mL (0.358-3.74) Test 04/04/19 06:20 Urine Collection Type Unknown Urine Color Yellow Urine Clarity Clear Urine pH 6.0 Urine Specific Hope 1.020 Urine Protein Negative mg/dL (NEG-TRACE) Urine Glucose (UA) Negative mg/dL (NEG) Urine Ketones (Stick) Negative mg/dL (NEG) Urine Blood Small (NEG) Urine Nitrite Negative (NEG) Urine Bilirubin Negative (NEG) Urine Urobilinogen Dipstick 1.0 mg/dL (0.2 mg/dL) Urine Leukocyte Esterase Negative (NEG) Urine RBC 0 /HPF (0-2) Urine WBC 5-10 /HPF (0-4) Urine Squamous Epithelial Cells Mod /LPF Urine Bacteria 0 /HPF (0-FEW) Images Images LEFT VENTRICLE The left ventricle is normal size. There is normal left ventricular wall thickness. The left ventricular systolic function is normal and the ejection fraction is within normal range. The Ejection Fraction is 6o-65%. There is normal LV segmental wall motion. The left ventricular diastolic function and filling is normal for age. RIGHT VENTRICLE The right ventricle is normal size. There is normal right ventricular wall thickness. The right ventricular systolic function is normal. ATRIA The left atrium is mildly dilated. The right atrium is mildly dilated. The interatrial septum is intact with no evidence for an atrial septal defect or patent foramen ovale as noted on 2-D or Doppler imaging. AORTIC VALVE The aortic valve is normal in structure and function. The aortic valve is tril eaflet. Doppler and Color Flow revealed no significant aortic regurgitation. There is no significant aortic valvular stenosis. There is no aortic valvular vegetation. MITRAL VALVE The mitral valve is normal in structure and function. There is no evidence of mitral valve prolapse. There is no mitral valve stenosis. Doppler and Color-flow revealed mild mitral regurgitation. TRICUSPID VALVE The tricuspid valve is normal in structure and function. Doppler and Color Flow revealed trace tricuspid regurgitation. The PA pressure was estimated at 42 mmHg. There is no tricuspid valve prolapse or vegetation. There is no tricuspid valve stenosis. PULMONIC VALVE The pulmonic valve is not well visualized. GREAT VESSELS The aortic root is normal in size. The ascending aorta is normal in size. The IVC is normal in size and collapses >50% with inspiration. PERICARDIAL EFFUSION There is no evidence of significant pericardial effusion. Critical Notification Critical Value: No <Conclusion> The left ventricle is normal size. The left ventricular systolic function is normal and the ejection fraction is within normal range. The Ejection Fraction is 6o-65%. There is no significant aortic valvular stenosis. Doppler and Color Flow revealed no significant aortic regurgitation. Doppler and Color-flow revealed mild mitral regurgitation. Doppler and Color Flow revealed trace tricuspid regurgitation. The PA pressure was estimated at 42 mmHg. Signed by : Ag Marcelo MD Electronically Approved : 04/04/2019 13:13:21 Examination: CT angiography chest HISTORY: History of shortness of breath COMPARISON: None available Technique: Axial CT angiographic images of chest were performed with IV contrast and coronal and sagittal 3-D MIP reformats are performed. Exposure: One or more of the following individualized dose reduction techniques were utilized for this examination: 1. Automated exposure control 2. Adjustment of the mA and/or kV according to patient size 3. Use of iterative reconstruction technique FINDINGS: The central airways are patent. Mild cardiomegaly. The caliber of the aorta grossly appears unremarkable. Few prominent mediastinal lymph nodes identified with the largest measuring 1.2 cm. There is no evidence of filling defect identified in the main pulmonary arterial trunk and right and left main pulmonary arteries. The evaluation of the distal lobar, segmental branches of the pulmonary arteries is somewhat limited. Diffuse groundglass airspace opacities identified in the bilateral lungs in the in the central portion of the lungs likely congestive changes or infiltrates. No evidence of pleural effusion or pneumothorax. Prominent mild bilateral hilar lymphadenopathy. The visualized liver, spleen demonstrate minimal prominence likely mild hepatosplenomegaly; Mild degenerative changes thoracic spine. IMPRESSION: 1. No evidence of central pulmonary embolism. 2. Diffuse groundglass airspace opacities identified in the bilateral perihilar region likely congestive changes or diffuse infiltrates. Follow-up to resolution. 3. Mild mediastinal and bilateral hilar lymphadenopathy. Electronically signed by: Cheo Zhang MD (04/03/2019 4:58 PM) [facility] VTE Prophylaxis Ordered VTE Prophylaxis Devices: Yes VTE Pharmacological Prophylaxi: Yes Assessment/Plan Assessment/Plan Assessment Acute CHF LE edema SEC CHF Fever h/o Preeclampsia Post No evidence of central pulmonary embolism. Diffuse groundglass airspace opacities identified in the bilateral perihilar region likely congestive changes or diffuse infiltrates. Follow-up to resolution. Mild mediastinal and bilateral hilar lymphadenopathy. Doppler and Color Flow revealed trace tricuspid regurgitation. The PA pressure was estimated at 42 mmHg.C/W MOD PULM HTN Plan zosyn for now check cultures check echo ID CONSULT CARDIOLOGY CONSULT dvt prophylaxis IV DIURESIS 63 min pt exam , chart review, > 50% of time spent with exam, chart review, pt care coordination TODD BROWN MD April 04, 2019 09:58
--- NOTE | 2019-04-04 10:52 | PDOC2 ---
CARDIAC CONSULT DATE OF CONSULT Date of Consult DATE: 04/04/19 TIME: 10:44 REASON FOR CONSULT Reason for Consult: Bilateral LE edema REFERRING PHYSICIAN Referring Physician: Dr. Gomez SOURCE Source: Chart review HISTORY OF PRESENT ILLNESS HISTORY OF PRESENT ILLNESS This is a 38 yo female who presented secondary to shortness of breath and bilateral upper and lower extremity edema. Recently . Was scheduled for c-sectio 03/17/19, but due to issues with edema, SOA, and pre-eclampsia, she was induced 03/08/19. Swelling has not significantly improved since delivery. SOA improved initially, but returned about a week ago. Was seen at [facility] last week for similar complaints. Underwent evaluation at that time and was started on lasix therapy with potassium supplement. Was also reportedly treated for PNA as well. Patient continues to have significant anasarca and SOA has progressed, which promoted her to return to the ED for fu rther evaluation and treatment. Denies any chest pain, palpitations, dizziness, diaphoresis, or nausea/vomiting. Has had non-productive cough and fevers for the last couple of days. Has been on supplemental oxygen since admission. PAST MEDICAL HISTORY Past Medical History Hypertension/pre-eclampsia, asthma, "borderline" diabetes, II. depression, anx iety, neuropathy, anemia PAST SURGICAL HISTORY Past Surgical History: Other () FAMILY HISTORY Family History: Diabetes, Heart Disease SOCIAL HISTORY Smoke: 1 pack per day ALCOHOL: none Drugs: None Lives: with Family CURRENT MEDICATIONS CURRENT MEDICATIONS Current Medications Medications (Trade) Dose Ordered Sig/Rj Route PRN Reason Start Time Stop Time Status Last Admin Dose Admin Sodium Chloride 1,000 ml @ 1,000 mls/hr Q1H IV 04/03/19 16:05 04/03/19 17:04 DC 04/03/19 16:24 Albuterol/ Ipratropium (Duoneb) 3 ml 1X ONCE NEB 04/03/19 16:45 04/03/19 16:46 DC 04/03/19 16:22 Methylprednisolone Sodium Succinate (SOLU-Medrol 125MG VIAL) 125 mg 1X ONCE IV 04/03/19 16:45 04/03/19 16:46 DC 04/03/19 16:23 Iohexol (Omnipaque 350 Mg/ml) 75 ml 1X ONCE IV 04/03/19 16:45 04/03/19 16:51 DC 04/03/19 16:51 Piperacillin Sod/ Tazobactam Sod 3.375 gm/Sodium Chloride 50 ml @ 100 mls/hr 1X ONCE IV 04/03/19 17:45 04/03/19 18:14 DC 04/03/19 17:00 Vancomycin HCl 2 gm/Sodium Chloride 500 ml @ 250 mls/hr 1X ONCE IV 04/03/19 17:45 04/03/19 19:44 DC 04/03/19 17:42 Furosemide (Lasix) 40 mg [id number] IVP 04/03/19 20:00 04/04/19 08:25 Acetaminophen/ Hydrocodone Bitart (Lortab 5/325) 1 tab PRN Q4HRS PRN PO PAIN 04/03/19 18:45 04/03/19 22:37 DC 04/03/19 20:09 Ondansetron HCl (Zofran Odt) 4 mg Q8HRS PO 04/03/19 22:00 04/04/19 03:39 Zolpidem Tartrate (Ambien) 5 mg PRN QHS PRN PO INSOMNIA 04/03/19 22:30 04/03/19 23:37 Acetaminophen/ Hydrocodone Bitart (Lortab 10/325) 2 tab PRN Q4HRS PRN PO PAIN 04/03/19 22:30 04/04/19 08:27 Albuterol Sulfate (Ventolin Neb Soln) 2.5 mg PRN Q4HRS PRN NEB SHORTNESS OF BREATH 04/03/19 22:30 04/04/19 08:37 Fluoxetine HCl (PROzac) 80 mg DAILY PO 04/03/19 23:55 04/04/19 08:26 Clonazepam (KlonoPIN) 0.5 mg 1X ONCE PO 04/04/19 09:00 04/04/19 09:03 DC 04/04/19 09:21 Piperacillin Sod/ Tazobactam Sod 3.375 gm/Sodium Chloride 50 ml @ 100 mls/hr 1X ONCE IV 04/04/19 09:30 04/04/19 09:59 DC 04/04/19 10:19 ALLERGIES ALLERGIES: Coded Allergies: No Known Drug Allergies (Unverified , 11/08/13) ROS Review of System 14 point ROS conducted with pertinent positives noted above in HPI. PHYSICAL EXAM General: Alert, Oriented X3, Cooperative, No acute distress HEENT: Atraumatic, Mucous membr. moist/pink Lungs: Other (bibasilar crackles) Heart: Regular rate, Normal S1, Normal S2 Abdomen: Soft Extremities: Other (anasarca) Neuro: Normal speech, Sensation intact Psych/Mental Status: Mental status NL, Mood NL MUSCULOSKELETAL: No deformity VITALS VITALS Vital Signs Date Time Temp Pulse Resp B/P (MAP) Pulse Ox O2 Delivery O2 Flow Rate FiO2 04/04/19 08:39 93 Nasal Cannula 4.0 04/04/19 07:00 96.4 60 18 99/58 (72) 96.4 LABS Lab: Laboratory Tests Test 04/03/19 15:50 04/03/19 16:22 04/03/19 16:25 04/04/19 04:00 White Blood Count 10.9 x10^3/uL (4.0-11.0) Red Blood Count 3.73 x10^6/uL (3.50-5.40) Hemoglobin 10.0 g/dL (12.0-15.5) Hematocrit 30.0 % (36.0-47.0) Mean Corpuscular Volume 80 fL (79-100) Mean Corpuscular Hemoglobin 27 pg (25-35) Mean Corpuscular Hemoglobin Concent 33 g/dL (31-37) Red Cell Distribution Width 14.8 % (11.5-14.5) Platelet Count 342 x10^3/uL (140-400) Neutrophils (%) (Auto) 80 % (31-73) Lymphocytes (%) (Auto) 14 % (24-48) Monocytes (%) (Auto) 5 % (0-9) Eosinophils (%) (Auto) 1 % (0-3) Basophils (%) (Auto) 1 % (0-3) Neutrophils # (Auto) 8.7 x10^3uL (1.8-7.7) Lymphocytes # (Auto) 1.5 x10^3/uL (1.0-4.8) Monocytes # (Auto) 0.5 x10^3/uL (0.0-1.1) Eosinophils # (Auto) 0.1 x10^3/uL (0.0-0.7) Basophils # (Auto) 0.1 x10^3/uL (0.0-0.2) D-Dimer ([place]andy) 1.60 ug/mlFEU (0.00-0.50) Sodium Level 139 mmol/L (136-145) 141 mmol/L (136-145) Potassium Level 4.3 mmol/L (3.5-5.1) 4.0 mmol/L (3.5-5.1) Chloride Level 102 mmol/L (98-107) 104 mmol/L (98-107) Carbon Dioxide Level 27 mmol/L (21-32) 26 mmol/L (21-32) Anion Gap 10 (6-14) 11 (6-14) Blood Urea Nitrogen 12 mg/dL (7-20) 13 mg/dL (7-20) Creatinine 1.1 mg/dL (0.6-1.0) 1.0 mg/dL (0.6-1.0) Estimated GFR (Cockcroft-Gault) 55.6 62.1 BUN/Creatinine Ratio 11 (6-20) Glucose Level 84 mg/dL (70-99) 224 mg/dL (70-99) Calcium Level 8.2 mg/dL (8.5-10.1) 8.1 mg/dL (8.5-10.1) Magnesium Level 1.9 mg/dL (1.8-2.4) 2.0 mg/dL (1.8-2.4) Total Bilirubin 0.6 mg/dL (0.2-1.0) Aspartate Amino Transf (AST/SGOT) 30 U/L (15-37) Alanine Aminotransferase (ALT/SGPT) 28 U/L (14-59) Alkaline Phosphatase 150 U/L (46-116) Creatine Kinase 126 U/L (26-192) Troponin I Quantitative < 0.017 ng/mL (0.000-0.055) AX-Oge-D-Type Natriuretic Peptide 2896 pg/mL (0-124) Total Protein 7.1 g/dL (6.4-8.2) Albumin 2.7 g/dL (3.4-5.0) 2.4 g/dL (3.4-5.0) Albumin/Globulin Ratio 0.6 (1.0-1.7) Influenza Type A Antigen Negative (NEGATIVE) Influenza Type B Antigen Negative (NEGATIVE) O2 Saturation 92 % (92-99) Arterial Blood pH 7.41 (7.35-7.45) Arterial Blood pCO2 at Patient Temp 39 mmHg (35-46) Arterial Blood pO2 at Patient Temp 66 mmHg (85-108) Arterial Blood HCO3 24 mmol/L (21-28) Arterial Blood Base Excess 0 mmol/L (-3-3) FiO2 32 Phosphorus Level 3.7 mg/dL (2.6-4.7) Thyroid Stimulating Hormone (TSH) 0.590 uIU/mL (0.358-3.74) Test 04/04/19 06:20 Urine Collection Type Unknown Urine Color Yellow Urine Clarity Clear Urine pH 6.0 Urine Specific [place] 1.020 Urine Protein Negative mg/dL (NEG-TRACE) Urine Glucose (UA) Negative mg/dL (NEG) Urine Ketones (Stick) Negative mg/dL (NEG) Urine Blood Small (NEG) Urine Nitrite Negative (NEG) Urine Bilirubin Negative (NEG) Urine Urobilinogen Dipstick 1.0 mg/dL (0.2 mg/dL) Urine Leukocyte Esterase Negative (NEG) Urine RBC 0 /HPF (0-2) Urine WBC 5-10 /HPF (0-4) Urine Squamous Epithelial Cells Mod /LPF Urine Bacteria 0 /HPF (0-FEW) ASSESSMENT/PLAN ASSESSMENT/PLAN 1. Acute respiratory failure secondary to acute CHF and possible PNA 2. Acute on chronic diastolic heart failure; NT Pro BNP elevated, chest imaging with congestive changes 3. Anasarca 4 ; s/p 03/08 5. H/o preeclampsia 6. Fevers; BC pending 7. Elevated d-dimer; CTA negative for acute changes. 8. Diabetes, II Recommendations Echo to assess LV systolic function Continued diuresis as blood pressure allows Further recommendations pending above. MILAD CAMARENA APRN April 04, 2019 10:52
[2019-04-04 11:00] VITALS: BP 91/48
--- NOTE | 2019-04-04 12:42 | CONS ---
DATE OF CONSULTATION: 04/04/2019 REQUESTING PHYSICIAN: Keith Gomez M.D. REASON FOR CONSULTATION: Possible pneumonia. HISTORY OF PRESENT ILLNESS: This is a 38-year-old female who has recently had and a fifth delivery. The patient had also preeclampsia. The patient ended up at [facility] for 5 days with swelling of the legs and shortness of breath and workup was done and she was told that she had pneumonia. The patient was discharged on Levaquin. The patient says she continued to have fever at home off and on up to 102, hence she decided to come in here. She is still continuing to complain of shortness of breath and leg edema. The patient denies any nausea or vomiting. Denies any diarrhea. Denies any chest pain. Denies any abdominal pain. Denies any pain into the incision site or there is any open wound or drainage. The patient has been given one dose of vancomycin and one dose of Zosyn and admitted as possible healthcare facility associated pneumonia. PAST MEDICAL HISTORY: Positive for preeclampsia this last , which is the fifth one; borderline diabetes; has had and knee injection done. SOCIAL HISTORY: Positive for smoking. No alcohol use or drug use. ALLERGIES: No known drug allergies. MEDICATIONS: Current medications reviewed. REVIEW OF SYSTEMS: As per HPI; all other systems reviewed are negative. PHYSICAL EXAMINATION: GENERAL: On examination, alert oriented female, not in any distress. VITAL SIGNS: Vitals are stable, afebrile completely since she is admitted. HEENT: NAD. NECK: Supple, no JVP, no lymphadenopathy. LUNGS: Crackles at the bases present. HEART: S1, S2 regular. No gallop or murmur. ABDOMEN: Soft, nontender. No organomegaly. EXTREMITIES: She does have mild pitting edema. There is no redness. There is no cyanosis. NEUROLOGIC: The patient is neurologically alert, awake and appropriate. No focal neurologic deficit. LABORATORY DATA: White count is normal with hemoglobin 10 and platelets are normal. BUN and creatinine are normal. Her BNP is 2896. Cultures have been taken. Chest x-ray and chest CT showed bilateral pulmonary infiltrate, most likely congestive heart failure. There is no consolidation. IMPRESSION: 1. Congestive heart failure. 2. Bilateral pulmonary infiltrate with possible infection, although appears less likely. The patient has recently been treated with Levaquin, although the patient continues to say that she had fever at home. 3. History of recent preeclampsia. 4. Post-. RECOMMENDATIONS: We would continue Zosyn. Echocardiogram, diuresis, supportive care and we will continue to follow the cultures. Thank you very much, Dr. Gomez, for giving me the opportunity to participate in this patient's care. LEO CROWELL MD DR: TOM/nts JOB#: [id number] / [id number]
[2019-04-04] MEDS ORDERED: ALBUTEROL SULFATE 2.5 MG/3 ML NEBU. INH PRN (12:45)
--- NOTE | 2019-04-04 12:45 | NUR ---
SS following for discharge planning. SS reviewed pt chart. Pt is from home and is currently requiring oxygen. No discharge needs noted at this time. SS will continue to follow for discharge planning.
--- NOTE | 2019-04-04 13:14 | CARD ---
MR#: [id number] Date of Study: 04/04/2019 Ordering Physician: GISSELL PARISH, Referring Physician: GISSELL PARISH, Tech: Migdalia Wooten ALFRED APPROVED REPORT EXAM: Two-dimensional and M-mode echocardiogram with Doppler and color Doppler. Other Information Quality : AverageHR: 74bpm Rhythm : NSR INDICATION Hypoxia 2D DIMENSIONS RVDd3.3 (2.9-3.5cm)Left Atrium(2D)4.5 (1.6-4.0cm) IVSd1.0 (0.7-1.1cm)Aortic Root(2D)2.7 (2.0-3.7cm) LVDd5.3 (3.9-5.9cm)LVOT Diameter2.1 (1.8-2.4cm) PWd1.0 (0.7-1.1cm)LVDs2.8 (2.5-4.0cm) FS (%) 47.5 %SV108.2 ml M-Mode DIMENSIONS Left Atrium(MM)4.27 (2.5-4.0cm)Aortic Root3.12 (2.2-3.7cm) Aortic Valve AoV Peak Vinh.200.5cm/sAoV VTI40.2cm AO Peak GR.16.1mmHgLVOT Peak Vinh.148.8cm/s AO Mean GR.9mmHgAVA (VMAX)2.55cm2 REGINO (VTI)2.60cm2 Mitral Valve MV E Siobbnmt459.1cm/sMV DECEL [id number] MV A Lkmgtbfg925.6cm/sE/A Ratio1.0 Pulmonary Valve PV Peak Qlpwubrz891.2cm/s Tricuspid Valve TR P. Cxjoxohq464oh/sRAP VKHMYUYQ6exLy TR Peak Gr.54lpFfZBBX83rrJd Pulmonary Vein S1 Fsrxoydk64.0cm/sD2 Niplenph44.3cm/s PVa dkalofzw34hznx LEFT VENTRICLE The left ventricle is normal size. There is normal left ventricular wall thickness. The left ventricu lar systolic function is normal and the ejection fraction is within normal range. The Ejection Fracti on is 6o-65%. There is normal LV segmental wall motion. The left ventricular diastolic function and f illing is normal for age. RIGHT VENTRICLE The right ventricle is normal size. There is normal right ventricular wall thickness. The right ventr icular systolic function is normal. ATRIA The left atrium is mildly dilated. The right atrium is mildly dilated. The interatrial septum is inta ct with no evidence for an atrial septal defect or patent foramen ovale as noted on 2-D or Doppler im aging. AORTIC VALVE The aortic valve is normal in structure and function. The aortic valve is trileaflet. Doppler and Col or Flow revealed no significant aortic regurgitation. There is no significant aortic valvular stenosi s. There is no aortic valvular vegetation. MITRAL VALVE The mitral valve is normal in structure and function. There is no evidence of mitral valve prolapse. There is no mitral valve stenosis. Doppler and Color-flow revealed mild mitral regurgitation. TRICUSPID VALVE The tricuspid valve is normal in structure and function. Doppler and Color Flow revealed trace tricus pid regurgitation. The PA pressure was estimated at 42 mmHg. There is no tricuspid valve prolapse or vegetation. There is no tricuspid valve stenosis. PULMONIC VALVE The pulmonic valve is not well visualized. GREAT VESSELS The aortic root is normal in size. The ascending aorta is normal in size. The IVC is normal in size a nd collapses >50% with inspiration. PERICARDIAL EFFUSION There is no evidence of significant pericardial effusion. Critical Notification Critical Value: No <Conclusion> The left ventricle is normal size. The left ventricular systolic function is normal and the ejection fraction is within normal range. The Ejection Fraction is 6o-65%. There is no significant aortic valvular stenosis. Doppler and Color Flow revealed no significant aortic regurgitation. Doppler and Color-flow revealed mild mitral regurgitation. Doppler and Color Flow revealed trace tricuspid regurgitation. The PA pressure was estimated at 42 mmHg. Signed by : Ag Marcelo MD Electronically Approved : 04/04/2019 13:13:21
[2019-04-04 13:16] LABS: HEMOGLOBIN A1C 5.4 % (4.8-5.6)
[2019-04-04] MEDS: PIPERACILLIN/TAZOBACTAM 3.375 GM in IV NORMAL SALINE 50ML 50 ML IV SCH ×3 (13:21→21:57)
[2019-04-04] MEDS: DICYCLOMINE HCL 10 MG CAPSULE PO PRN (13:21)
[2019-04-04] MEDS: GABAPENTIN 300 MG CAPSULE. PO SCH ×2 (13:22→21:56)
[2019-04-04] MEDS: NICOTINE 21MG PATCH. TD SCH ×2 (14:30→17:11)
[2019-04-04 15:00] VITALS: BP 90/50
--- NOTE | 2019-04-04 16:59 | PDOC ---
PULMONARY PROGRESS NOTES Vitals Vital Signs Date Time Temp Pulse Resp B/P (MAP) Pulse Ox O2 Delivery O2 Flow Rate FiO2 04/04/19 16:02 Nasal Cannula 4.0 04/04/19 15:00 98.2 74 18 90/50 (63) 92 98.2 Labs Laboratory Tests Test 04/03/19 15:50 04/03/19 16:22 04/03/19 16:25 04/04/19 04:00 White Blood Count 10.9 x10^3/uL (4.0-11.0) Red Blood Count 3.73 x10^6/uL (3.50-5.40) Hemoglobin 10.0 g/dL (12.0-15.5) Hematocrit 30.0 % (36.0-47.0) Mean Corpuscular Volume 80 fL (79-100) Mean Corpuscular Hemoglobin 27 pg (25-35) Mean Corpuscular Hemoglobin Concent 33 g/dL (31-37) Red Cell Distribution Width 14.8 % (11.5-14.5) Platelet Count 342 x10^3/uL (140-400) Neutrophils (%) (Auto) 80 % (31-73) Lymphocytes (%) (Auto) 14 % (24-48) Monocytes (%) (Auto) 5 % (0-9) Eosinophils (%) (Auto) 1 % (0-3) Basophils (%) (Auto) 1 % (0-3) Neutrophils # (Auto) 8.7 x10^3uL (1.8-7.7) Lymphocytes # (Auto) 1.5 x10^3/uL (1.0-4.8) Monocytes # (Auto) 0.5 x10^3/uL (0.0-1.1) Eosinophils # (Auto) 0.1 x10^3/uL (0.0-0.7) Basophils # (Auto) 0.1 x10^3/uL (0.0-0.2) D-Dimer ([place]andy) 1.60 ug/mlFEU (0.00-0.50) Sodium Level 139 mmol/L (136-145) 141 mmol/L (136-145) Potassium Level 4.3 mmol/L (3.5-5.1) 4.0 mmol/L (3.5-5.1) Chloride Level 102 mmol/L (98-107) 104 mmol/L (98-107) Carbon Dioxide Level 27 mmol/L (21-32) 26 mmol/L (21-32) Anion Gap 10 (6-14) 11 (6-14) Blood Urea Nitrogen 12 mg/dL (7-20) 13 mg/dL (7-20) Creatinine 1.1 mg/dL (0.6-1.0) 1.0 mg/dL (0.6-1.0) Estimated GFR (Cockcroft-Gault) 55.6 62.1 BUN/Creatinine Ratio 11 (6-20) Glucose Level 84 mg/dL (70-99) 224 mg/dL (70-99) Calcium Level 8.2 mg/dL (8.5-10.1) 8.1 mg/dL (8.5-10.1) Magnesium Level 1.9 mg/dL (1.8-2.4) 2.0 mg/dL (1.8-2.4) Total Bilirubin 0.6 mg/dL (0.2-1.0) Aspartate Amino Transf (AST/SGOT) 30 U/L (15-37) Alanine Aminotransferase (ALT/SGPT) 28 U/L (14-59) Alkaline Phosphatase 150 U/L (46-116) Creatine Kinase 126 U/L (26-192) Troponin I Quantitative < 0.017 ng/mL (0.000-0.055) CC-Igr-J-Type Natriuretic Peptide 2896 pg/mL (0-124) Total Protein 7.1 g/dL (6.4-8.2) Albumin 2.7 g/dL (3.4-5.0) 2.4 g/dL (3.4-5.0) Albumin/Globulin Ratio 0.6 (1.0-1.7) Influenza Type A Antigen Negative (NEGATIVE) Influenza Type B Antigen Negative (NEGATIVE) O2 Saturation 92 % (92-99) Arterial Blood pH 7.41 (7.35-7.45) Arterial Blood pCO2 at Patient Temp 39 mmHg (35-46) Arterial Blood pO2 at Patient Temp 66 mmHg (85-108) Arterial Blood HCO3 24 mmol/L (21-28) Arterial Blood Base Excess 0 mmol/L (-3-3) FiO2 32 Hemoglobin A1c 5.4 % (4.8-5.6) Phosphorus Level 3.7 mg/dL (2.6-4.7) Thyroid Stimulating Hormone (TSH) 0.590 uIU/mL (0.358-3.74) Test 04/04/19 06:20 Urine Collection Type Unknown Urine Color Yellow Urine Clarity Clear Urine pH 6.0 Urine Specific [place] 1.020 Urine Protein Negative mg/dL (NEG-TRACE) Urine Glucose (UA) Negative mg/dL (NEG) Urine Ketones (Stick) Negative mg/dL (NEG) Urine Blood Small (NEG) Urine Nitrite Negative (NEG) Urine Bilirubin Negative (NEG) Urine Urobilinogen Dipstick 1.0 mg/dL (0.2 mg/dL) Urine Leukocyte Esterase Negative (NEG) Urine RBC 0 /HPF (0-2) Urine WBC 5-10 /HPF (0-4) Urine Squamous Epithelial Cells Mod /LPF Urine Bacteria 0 /HPF (0-FEW) Laboratory Tests Test 04/04/19 04:00 04/04/19 06:20 Sodium Level 141 mmol/L (136-145) Potassium Level 4.0 mmol/L (3.5-5.1) Chloride Level 104 mmol/L (98-107) Carbon Dioxide Level 26 mmol/L (21-32) Anion Gap 11 (6-14) Blood Urea Nitrogen 13 mg/dL (7-20) Creatinine 1.0 mg/dL (0.6-1.0) Estimated GFR (Cockcroft-Gault) 62.1 Glucose Level 224 mg/dL (70-99) Hemoglobin A1c 5.4 % (4.8-5.6) Calcium Level 8.1 mg/dL (8.5-10.1) Phosphorus Level 3.7 mg/dL (2.6-4.7) Magnesium Level 2.0 mg/dL (1.8-2.4) Albumin 2.4 g/dL (3.4-5.0) Thyroid Stimulating Hormone (TSH) 0.590 uIU/mL (0.358-3.74) Urine Collection Type Unknown Urine Color Yellow Urine Clarity Clear Urine pH 6.0 Urine Specific [place] 1.020 Urine Protein Negative mg/dL (NEG-TRACE) Urine Glucose (UA) Negative mg/dL (NEG) Urine Ketones (Stick) Negative mg/dL (NEG) Urine Blood Small (NEG) Urine Nitrite Negative (NEG) Urine Bilirubin Negative (NEG) Urine Urobilinogen Dipstick 1.0 mg/dL (0.2 mg/dL) Urine Leukocyte Esterase Negative (NEG) Urine RBC 0 /HPF (0-2) Urine WBC 5-10 /HPF (0-4) Urine Squamous Epithelial Cells Mod /LPF Urine Bacteria 0 /HPF (0-FEW) Medications Active Scripts Medications Dose Route/Sig Max Daily Dose Days Date Category Zofran Odt (Ondansetron) 4 Mg Tab.rapdis 1 Tab SL Q8HRS 08/29/18 Rx Proair Hfa Inhaler (Albuterol Sulfate) 8.5 Gm Hfa.aer.ad 1 Puff INH PRN Q6HRS PRN 08/01/18 Rx [place] 5-325 Tablet (Acetaminophen/Hydrocodone Bitart) 1 Each Tablet 1 Tab PO Q4-6HRS 04/21/18 Rx [place] 5-325 Tablet (Acetaminophen/Hydrocodone Bitart) 1 Each Tablet 1 Tab PO BID 3 04/18/18 Rx [place] 5-325 Tablet (Acetaminophen/Hydrocodone Bitart) 1 Each Tablet 1 Tab PO PRN Q6HRS PRN 08/02/17 Rx Amoxicillin 500 Mg Capsule 1 Cap PO QID 08/02/17 Rx Ibuprofen 800 Mg Tablet 800 Mg PO PRN Q6HRS PRN 10 05/19/17 Rx Penicillin V Potassium 500 Mg Tablet 1 Tab PO QID 05/19/17 Rx Amoxicillin 875 Mg Tablet 1 Tab PO BID 11/27/16 Rx Bentyl (Dicyclomine Hcl) 10 Mg Capsule 10 Mg PO QID PRN 11/23/16 Rx Naproxen 250 Mg Tablet 250 Mg PO BID PRN 11/23/16 Rx Macrobid 100 Mg Capsule (Nitrofurantoin Monohyd/M-Cryst) 100 Mg Capsule 1 Cap PO BID 09/28/16 Rx Flagyl (Metronidazole) 500 Mg Tablet 1 Tab PO BID 09/28/16 Rx Tylenol With Codeine #3 Tablet (Acetaminophen/Codeine Phosphate) 1 Each Tablet 1 Tab PO PRN Q6HRS PRN 07/31/16 Rx Bactrim Ds Tablet (Sulfamethoxazole/Trimethoprim) 1 Each Tablet 1 Tab PO BID 07/31/16 Rx Klonopin (Clonazepam) 1 Mg Tablet 1 Mg PO DAILY 06/09/14 Reported Neurontin (Gabapentin) 600 Mg Tablet 300 Mg PO BID 06/09/14 Reported Effexor Xr (Venlafaxine Hcl) 150 Mg Cap.er.24h 300 Mg PO DAILY 06/09/14 Reported Hydrocodone-Apap 10-300 (Hydrocodone Bit/Acetaminophen) 1 Each Tablet 1 Tab PO PRN Q6HRS PRN 06/09/14 Reported Oxycodone-Acetaminophen 10-325 (Oxycodone Hcl/Acetaminophen) 1 Each Tablet 1 Each PO 06/09/14 Reported Effexor Xr (Venlafaxine Hcl) 37.5 Mg Cap.er.24h 37.5 Mg PO 11/08/13 Reported Mirena (Levonorgestrel) 1 Each Iud 1 Each IY 11/08/13 Reported Lorazepam 0.5 Mg Tablet 0.5 Mg PO 11/08/13 Reported Impression . FULL CONSULT DICTATED SUSPECT CARDIOGENIC PULMONARY EDEMA GERARD LÓPEZ MD April 04, 2019 16:59
[2019-04-04] MEDS: oxyCODONE/APAP 7.5/325 1 TAB TABLET PO PRN ×2 (17:07→23:15)
[2019-04-04 19:40] VITALS: BP 102/53
[2019-04-04] MEDS: ZOLPIDEM 5 MG TABLET. PO PRN (23:15)
[2019-04-04] MEDS: SENNOSIDES/DOCUSATE 8.6/50MG TABLET. PO PRN (23:21)
[2019-04-04 23:40] VITALS: BP 127/58
[2019-04-05 03:15] VITALS: BP 103/57
[2019-04-05 04:16] LABS: ALBUMIN 2.4 g/dL (3.4-5.0); CALCIUM 8.1 mg/dL (8.5-10.1); GFR 62.1; PHOSPHORUS 3.8 mg/dL (2.6-4.7); POTASSIUM 3.7 mmol/L (3.5-5.1)
[2019-04-05] MEDS: oxyCODONE/APAP 7.5/325 1 TAB TABLET PO PRN ×3 (06:12→19:21)
[2019-04-05] MEDS: ONDANSETRON ODT 4 MG TAB.RAPDIS. PO SCH ×2 (06:12→14:00)
[2019-04-05] MEDS: PIPERACILLIN/TAZOBACTAM 3.375 GM in IV NORMAL SALINE 50ML 50 ML IV SCH ×4 (06:13→23:39)
[2019-04-05 07:00] VITALS: BP 104/55
[2019-04-05] MEDS: ALBUTEROL SULFATE 2.5 MG/3 ML NEBU. NEB PRN (08:26)
--- NOTE | 2019-04-05 08:33 | PDOC ---
Infectious Disease Note Subjective Subjective pt is awake, hypoxic with walking ROS ROS no n/v/d/fever Vital Sign Vital Signs Vital Signs Date Time Temp Pulse Resp B/P (MAP) Pulse Ox O2 Delivery O2 Flow Rate FiO2 04/05/19 07:10 18 91 Nasal Cannula 4.0 04/05/19 07:00 97.9 71 104/55 (71) 97.9 Physical Exam PHYSICAL EXAM GENERAL: On examination, alert oriented female, not in any distress. VITAL SIGNS: Vitals are stable, afebrile completely since she is admitted. HEENT: NAD. NECK: Supple, no JVP, no lymphadenopathy. LUNGS: Crackles at the bases present. HEART: S1, S2 regular. No gallop or murmur. ABDOMEN: Soft, nontender. No organomegaly. EXTREMITIES: She does have mild pitting edema. There is no redness. There is no cyanosis. NEUROLOGIC: The patient is neurologically alert, awake and appropriate. No focal neurologic deficit. Labs Lab Laboratory Tests Test 04/05/19 03:05 Sodium Level 142 mmol/L (136-145) Potassium Level 3.7 mmol/L (3.5-5.1) Chloride Level 105 mmol/L (98-107) Carbon Dioxide Level 26 mmol/L (21-32) Anion Gap 11 (6-14) Blood Urea Nitrogen 17 mg/dL (7-20) Creatinine 1.0 mg/dL (0.6-1.0) Estimated GFR (Cockcroft-Gault) 62.1 Glucose Level 120 mg/dL (70-99) Calcium Level 8.1 mg/dL (8.5-10.1) Phosphorus Level 3.8 mg/dL (2.6-4.7) Albumin 2.4 g/dL (3.4-5.0) Micro Microbiology 04/03/19 Blood Culture - Preliminary, Resulted NO GROWTH AFTER 1 DAY Objective Assessment Fever at home CHF h/o Preeclampsia Post ? Pneumonia Hypoxia Plan Plan of Care zosyn for now check cultures LEO CROWELL MD April 05, 2019 08:33
[2019-04-05] MEDS: clonazePAM 1 MG TABLET PO SCH (08:46)
[2019-04-05] MEDS: GABAPENTIN 300 MG CAPSULE. PO SCH ×3 (08:47→20:19)
[2019-04-05] MEDS: FLUoxetine HCL 20 MG CAPSULE PO SCH (08:47)
[2019-04-05] MEDS: NICOTINE 21MG PATCH. TD SCH (08:48)
[2019-04-05] MEDS: FUROSEMIDE 40 MG/4 ML VIAL. IVP SCH (08:50)
--- NOTE | 2019-04-05 09:06 | PDOC ---
PULMONARY PROGRESS NOTES Subjective STILL SOA WITH EXERTION AT TIME COUGH NON PROD Vitals Vital Signs Date Time Temp Pulse Resp B/P (MAP) Pulse Ox O2 Delivery O2 Flow Rate FiO2 04/05/19 08:32 93 Nasal Cannula 4.0 04/05/19 07:10 18 04/05/19 07:00 97.9 71 104/55 (71) 97.9 ROS: No Nausea, No Chest Pain, No Abdominal Pain, No Increase Cough General: Alert Lungs: Crackles Cardiovascular: S1, S2 Abdomen: Soft Neuro Exam: Alert Extremities: No Edema Skin: Warm Labs Laboratory Tests Test 04/03/19 15:50 04/03/19 16:22 04/03/19 16:25 04/04/19 04:00 White Blood Count 10.9 x10^3/uL (4.0-11.0) Red Blood Count 3.73 x10^6/uL (3.50-5.40) Hemoglobin 10.0 g/dL (12.0-15.5) Hematocrit 30.0 % (36.0-47.0) Mean Corpuscular Volume 80 fL (79-100) Mean Corpuscular Hemoglobin 27 pg (25-35) Mean Corpuscular Hemoglobin Concent 33 g/dL (31-37) Red Cell Distribution Width 14.8 % (11.5-14.5) Platelet Count 342 x10^3/uL (140-400) Neutrophils (%) (Auto) 80 % (31-73) Lymphocytes (%) (Auto) 14 % (24-48) Monocytes (%) (Auto) 5 % (0-9) Eosinophils (%) (Auto) 1 % (0-3) Basophils (%) (Auto) 1 % (0-3) Neutrophils # (Auto) 8.7 x10^3uL (1.8-7.7) Lymphocytes # (Auto) 1.5 x10^3/uL (1.0-4.8) Monocytes # (Auto) 0.5 x10^3/uL (0.0-1.1) Eosinophils # (Auto) 0.1 x10^3/uL (0.0-0.7) Basophils # (Auto) 0.1 x10^3/uL (0.0-0.2) D-Dimer (Wandy) 1.60 ug/mlFEU (0.00-0.50) Sodium Level 139 mmol/L (136-145) 141 mmol/L (136-145) Potassium Level 4.3 mmol/L (3.5-5.1) 4.0 mmol/L (3.5-5.1) Chloride Level 102 mmol/L (98-107) 104 mmol/L (98-107) Carbon Dioxide Level 27 mmol/L (21-32) 26 mmol/L (21-32) Anion Gap 10 (6-14) 11 (6-14) Blood Urea Nitrogen 12 mg/dL (7-20) 13 mg/dL (7-20) Creatinine 1.1 mg/dL (0.6-1.0) 1.0 mg/dL (0.6-1.0) Estimated GFR (Cockcroft-Gault) 55.6 62.1 BUN/Creatinine Ratio 11 (6-20) Glucose Level 84 mg/dL (70-99) 224 mg/dL (70-99) Calcium Level 8.2 mg/dL (8.5-10.1) 8.1 mg/dL (8.5-10.1) Magnesium Level 1.9 mg/dL (1.8-2.4) 2.0 mg/dL (1.8-2.4) Total Bilirubin 0.6 mg/dL (0.2-1.0) Aspartate Amino Transf (AST/SGOT) 30 U/L (15-37) Alanine Aminotransferase (ALT/SGPT) 28 U/L (14-59) Alkaline Phosphatase 150 U/L (46-116) Creatine Kinase 126 U/L (26-192) Troponin I Quantitative < 0.017 ng/mL (0.000-0.055) XV-Hel-L-Type Natriuretic Peptide 2896 pg/mL (0-124) Total Protein 7.1 g/dL (6.4-8.2) Albumin 2.7 g/dL (3.4-5.0) 2.4 g/dL (3.4-5.0) Albumin/Globulin Ratio 0.6 (1.0-1.7) Influenza Type A Antigen Negative (NEGATIVE) Influenza Type B Antigen Negative (NEGATIVE) O2 Saturation 92 % (92-99) Arterial Blood pH 7.41 (7.35-7.45) Arterial Blood pCO2 at Patient Temp 39 mmHg (35-46) Arterial Blood pO2 at Patient Temp 66 mmHg (85-108) Arterial Blood HCO3 24 mmol/L (21-28) Arterial Blood Base Excess 0 mmol/L (-3-3) FiO2 32 Hemoglobin A1c 5.4 % (4.8-5.6) Phosphorus Level 3.7 mg/dL (2.6-4.7) Thyroid Stimulating Hormone (TSH) 0.590 uIU/mL (0.358-3.74) Test 04/04/19 06:20 04/05/19 03:05 Urine Collection Type Unknown Urine Color Yellow Urine Clarity Clear Urine pH 6.0 Urine Specific [place] 1.020 Urine Protein Negative mg/dL (NEG-TRACE) Urine Glucose (UA) Negative mg/dL (NEG) Urine Ketones (Stick) Negative mg/dL (NEG) Urine Blood Small (NEG) Urine Nitrite Negative (NEG) Urine Bilirubin Negative (NEG) Urine Urobilinogen Dipstick 1.0 mg/dL (0.2 mg/dL) Urine Leukocyte Esterase Negative (NEG) Urine RBC 0 /HPF (0-2) Urine WBC 5-10 /HPF (0-4) Urine Squamous Epithelial Cells Mod /LPF Urine Bacteria 0 /HPF (0-FEW) Sodium Level 142 mmol/L (136-145) Potassium Level 3.7 mmol/L (3.5-5.1) Chloride Level 105 mmol/L (98-107) Carbon Dioxide Level 26 mmol/L (21-32) Anion Gap 11 (6-14) Blood Urea Nitrogen 17 mg/dL (7-20) Creatinine 1.0 mg/dL (0.6-1.0) Estimated GFR (Cockcroft-Gault) 62.1 Glucose Level 120 mg/dL (70-99) Calcium Level 8.1 mg/dL (8.5-10.1) Phosphorus Level 3.8 mg/dL (2.6-4.7) Albumin 2.4 g/dL (3.4-5.0) Laboratory Tests Test 04/05/19 03:05 Sodium Level 142 mmol/L (136-145) Potassium Level 3.7 mmol/L (3.5-5.1) Chloride Level 105 mmol/L (98-107) Carbon Dioxide Level 26 mmol/L (21-32) Anion Gap 11 (6-14) Blood Urea Nitrogen 17 mg/dL (7-20) Creatinine 1.0 mg/dL (0.6-1.0) Estimated GFR (Cockcroft-Gault) 62.1 Glucose Level 120 mg/dL (70-99) Calcium Level 8.1 mg/dL (8.5-10.1) Phosphorus Level 3.8 mg/dL (2.6-4.7) Albumin 2.4 g/dL (3.4-5.0) Medications Active Scripts Medications Dose Route/Sig Max Daily Dose Days Date Category Zofran Odt (Ondansetron) 4 Mg Tab.rapdis 1 Tab SL Q8HRS 08/29/18 Rx Proair Hfa Inhaler (Albuterol Sulfate) 8.5 Gm Hfa.aer.ad 1 Puff INH PRN Q6HRS PRN 08/01/18 Rx [place] 5-325 Tablet (Acetaminophen/Hydrocodone Bitart) 1 Each Tablet 1 Tab PO Q4-6HRS 04/21/18 Rx [place] 5-325 Tablet (Acetaminophen/Hydrocodone Bitart) 1 Each Tablet 1 Tab PO BID 3 04/18/18 Rx [place] 5-325 Tablet (Acetaminophen/Hydrocodone Bitart) 1 Each Tablet 1 Tab PO PRN Q6HRS PRN 08/02/17 Rx Amoxicillin 500 Mg Capsule 1 Cap PO QID 08/02/17 Rx Ibuprofen 800 Mg Tablet 800 Mg PO PRN Q6HRS PRN 10 05/19/17 Rx Penicillin V Potassium 500 Mg Tablet 1 Tab PO QID 05/19/17 Rx Amoxicillin 875 Mg Tablet 1 Tab PO BID 11/27/16 Rx Bentyl (Dicyclomine Hcl) 10 Mg Capsule 10 Mg PO QID PRN 11/23/16 Rx Naproxen 250 Mg Tablet 250 Mg PO BID PRN 11/23/16 Rx Macrobid 100 Mg Capsule (Nitrofurantoin Monohyd/M-Cryst) 100 Mg Capsule 1 Cap PO BID 09/28/16 Rx Flagyl (Metronidazole) 500 Mg Tablet 1 Tab PO BID 09/28/16 Rx Tylenol With Codeine #3 Tablet (Acetaminophen/Codeine Phosphate) 1 Each Tablet 1 Tab PO PRN Q6HRS PRN 07/31/16 Rx Bactrim Ds Tablet (Sulfamethoxazole/Trimethoprim) 1 Each Tablet 1 Tab PO BID 07/31/16 Rx Klonopin (Clonazepam) 1 Mg Tablet 1 Mg PO DAILY 06/09/14 Reported Neurontin (Gabapentin) 600 Mg Tablet 300 Mg PO BID 06/09/14 Reported Effexor Xr (Venlafaxine Hcl) 150 Mg Cap.er.24h 300 Mg PO DAILY 06/09/14 Reported Hydrocodone-Apap 10-300 (Hydrocodone Bit/Acetaminophen) 1 Each Tablet 1 Tab PO PRN Q6HRS PRN 06/09/14 Reported Oxycodone-Acetaminophen 10-325 (Oxycodone Hcl/Acetaminophen) 1 Each Tablet 1 Each PO 06/09/14 Reported Effexor Xr (Venlafaxine Hcl) 37.5 Mg Cap.er.24h 37.5 Mg PO 11/08/13 Reported Mirena (Levonorgestrel) 1 Each Iud 1 Each IY 11/08/13 Reported Lorazepam 0.5 Mg Tablet 0.5 Mg PO 11/08/13 Reported Impression . IMPRESSION: 1. Acute hypoxemic respiratory failure. Suspect mostly secondary to acute pulmonary edema. 2. Bilateral pulmonary infiltrates seen on CT chest and x-ray, suspect edema versus questionable infection, although the patient's clinical presentation is not compatible with infection. 3. Status post emergent for preeclampsia. 4. Abnormal x-ray, 5. AECOPD echo The left ventricle is normal size. The left ventricular systolic function is normal and the ejection fraction is within normal range. The Ejection Fraction is 6o-65%. There is no significant aortic valvular stenosis. Doppler and Color Flow revealed no significant aortic regurgitation. Doppler and Color-flow revealed mild mitral regurgitation. Doppler and Color Flow revealed trace tricuspid regurgitation. The PA pressure was estimated at 42 mmHg. Signed by : Ag Marcelo MD Electronically Approved : 04/04/2019 13:13:21 Plan . DIURESE FOR NON CARDIOGENIC PULMONARY EDEMA ECHO REPORTED NOTED ANTI BX PER ID WILL ADD STEROIDS OUT PT SLEEP STUDY PRN BIPAP DVT AND GI PROPH GERARD LÓPEZ MD April 05, 2019 09:06
--- NOTE | 2019-04-05 09:25 | PDOC ---
PROGRESS NOTES History of Present Illness History of Present Illness VTE Prophylaxis Ordered VTE Prophylaxis Devices: Yes VTE Pharmacological Prophylaxi: Yes Assessment/Plan Assessment/Plan Assessment Acute CHF LE edema SEC CHF Fever h/o Preeclampsia Post No evidence of central pulmonary embolism. Diffuse groundglass airspace opacities identified in the bilateral perihilar region likely congestive changes or diffuse infiltrates. Follow-up to resolution. Mild mediastinal and bilateral hilar lymphadenopathy. Doppler and Color Flow revealed trace tricuspid regurgitation. The PA pressure was estimated at 42 mmHg.C/W MOD PULM HTN Plan zosyn for now check cultures check echo ID CONSULT CARDIOLOGY CONSULT dvt prophylaxis IV DIURESIS 41 min pt exam , chart review, > 50% of time spent with exam, chart review, pt care coordination Vitals Vitals Vital Signs Date Time Temp Pulse Resp B/P (MAP) Pulse Ox O2 Delivery O2 Flow Rate FiO2 04/05/19 08:32 93 Nasal Cannula 4.0 04/05/19 07:10 18 04/05/19 07:00 97.9 71 104/55 (71) 97.9 Physical Exam Physical Exam GENERAL: On examination, alert oriented female, not in any distress. VITAL SIGNS: Vitals are stable, afebrile completely since she is admitted. HEENT: NAD. NECK: Supple, no JVP, no lymphadenopathy. LUNGS: Crackles at the bases present. HEART: S1, S2 regular. No gallop or murmur. ABDOMEN: Soft, nontender. No organomegaly. EXTREMITIES: She does have mild pitting edema. There is no redness. There is no cyanosis. NEUROLOGIC: The patient is neurologically alert, awake and appropriate. No focal neurologic deficit. General: Alert, Oriented X3, Cooperative, No acute distress, mild distress Heart: Regular rate, Normal S1, Normal S2 Lungs: Clear Abdomen: Normal bowel sounds, Soft Extremities: No clubbing, No cyanosis, Other (anasarca) Skin: No significant lesion Labs LABS LEFT VENTRICLE The left ventricle is normal size. There is normal left ventricular wall thickness. The left ventricular systolic function is normal and the ejection fraction is within normal range. The Ejection Fraction is 6o-65%. There is nor mal LV segmental wall motion. The left ventricular diastolic function and filling is normal for age. RIGHT VENTRICLE The right ventricle is normal size. There is normal right ventricular wall thickness. The right ventricular systolic function is normal. ATRIA The left atrium is mildly dilated. The right atrium is mildly dilated. The interatrial septum is intact with no evidence for an atrial septal defect or patent foramen ovale as noted on 2-D or Doppler imaging. AORTIC VALVE The aortic valve is normal in structure and function. The aortic valve is trileaflet. Doppler and Color Flow revealed no significant aortic regurgitation. There is no significant aortic valvular stenosis. There is no aortic valvular vegetation. MITRAL VALVE The mitral valve is normal in structure and function. There is no evidence of mitral valve prolapse. There is no mitral valve stenosis. Doppler and Color-flow revealed mild mitral regurgitation. TRICUSPID VALVE The tricuspid valve is normal in structure and function. Doppler and Color Flow revealed trace tricuspid regurgitation. The PA pressure was estimated at 42 mmHg. There is no tricuspid valve prolapse or vegetation. There is no tricuspid valve stenosis. PULMONIC VALVE The pulmonic valve is not well visualized. GREAT VESSELS The aortic root is normal in size. The ascending aorta is normal in size. The IVC is normal in size and collapses >50% with inspiration. PERICARDIAL EFFUSION There is no evidence of significant pericardial effusion. Critical Notification Critical Value: No <Conclusion> The left ventricle is normal size. The left ventricular systolic function is normal and the ejection fraction is within normal range. The Ejection Fraction is 6o-65%. There is no significant aortic valvular stenosis. Doppler and Color Flow revealed no significant aortic regurgitation. Doppler and Color-flow revealed mild mitral regurgitation. Doppler and Color Flow revealed trace tricuspid regurgitation. The PA pressure was estimated at 42 mmHg. Signed by : Ag Marcelo MD Electronically Approved : 04/04/2019 13:13:21 Laboratory Tests Test 04/05/19 03:05 Sodium Level 142 mmol/L (136-145) Potassium Level 3.7 mmol/L (3.5-5.1) Chloride Level 105 mmol/L (98-107) Carbon Dioxide Level 26 mmol/L (21-32) Anion Gap 11 (6-14) Blood Urea Nitrogen 17 mg/dL (7-20) Creatinine 1.0 mg/dL (0.6-1.0) Estimated GFR (Cockcroft-Gault) 62.1 Glucose Level 120 mg/dL (70-99) Calcium Level 8.1 mg/dL (8.5-10.1) Phosphorus Level 3.8 mg/dL (2.6-4.7) Albumin 2.4 g/dL (3.4-5.0) Assessment and Plan Assessmemt and Plan Problems Medical Problems: (1) Anemia Status: Acute (2) CHF (congestive heart failure) Status: Acute (3) HCAP (healthcare-associated pneumonia) Status: Acute (4) Hypoxia Status: Acute (5) cardiomyopathy Status: Acute (6) Tobacco abuse Status: Acute Comment Review of Relevant I have reviewed the following items kong (where applicable) has been applied. Labs Laboratory Tests Test 04/03/19 15:50 04/03/19 16:22 04/03/19 16:25 04/04/19 04:00 White Blood Count 10.9 x10^3/uL (4.0-11.0) Red Blood Count 3.73 x10^6/uL (3.50-5.40) Hemoglobin 10.0 g/dL (12.0-15.5) Hematocrit 30.0 % (36.0-47.0) Mean Corpuscular Volume 80 fL (79-100) Mean Corpuscular Hemoglobin 27 pg (25-35) Mean Corpuscular Hemoglobin Concent 33 g/dL (31-37) Red Cell Distribution Width 14.8 % (11.5-14.5) Platelet Count 342 x10^3/uL (140-400) Neutrophils (%) (Auto) 80 % (31-73) Lymphocytes (%) (Auto) 14 % (24-48) Monocytes (%) (Auto) 5 % (0-9) Eosinophils (%) (Auto) 1 % (0-3) Basophils (%) (Auto) 1 % (0-3) Neutrophils # (Auto) 8.7 x10^3uL (1.8-7.7) Lymphocytes # (Auto) 1.5 x10^3/uL (1.0-4.8) Monocytes # (Auto) 0.5 x10^3/uL (0.0-1.1) Eosinophils # (Auto) 0.1 x10^3/uL (0.0-0.7) Basophils # (Auto) 0.1 x10^3/uL (0.0-0.2) D-Dimer ([place]andy) 1.60 ug/mlFEU (0.00-0.50) Sodium Level 139 mmol/L (136-145) 141 mmol/L (136-145) Potassium Level 4.3 mmol/L (3.5-5.1) 4.0 mmol/L (3.5-5.1) Chloride Level 102 mmol/L (98-107) 104 mmol/L (98-107) Carbon Dioxide Level 27 mmol/L (21-32) 26 mmol/L (21-32) Anion Gap 10 (6-14) 11 (6-14) Blood Urea Nitrogen 12 mg/dL (7-20) 13 mg/dL (7-20) Creatinine 1.1 mg/dL (0.6-1.0) 1.0 mg/dL (0.6-1.0) Estimated GFR (Cockcroft-Gault) 55.6 62.1 BUN/Creatinine Ratio 11 (6-20) Glucose Level 84 mg/dL (70-99) 224 mg/dL (70-99) Calcium Level 8.2 mg/dL (8.5-10.1) 8.1 mg/dL (8.5-10.1) Magnesium Level 1.9 mg/dL (1.8-2.4) 2.0 mg/dL (1.8-2.4) Total Bilirubin 0.6 mg/dL (0.2-1.0) Aspartate Amino Transf (AST/SGOT) 30 U/L (15-37) Alanine Aminotransferase (ALT/SGPT) 28 U/L (14-59) Alkaline Phosphatase 150 U/L (46-116) Creatine Kinase 126 U/L (26-192) Troponin I Quantitative < 0.017 ng/mL (0.000-0.055) SO-Ogk-S-Type Natriuretic Peptide 2896 pg/mL (0-124) Total Protein 7.1 g/dL (6.4-8.2) Albumin 2.7 g/dL (3.4-5.0) 2.4 g/dL (3.4-5.0) Albumin/Globulin Ratio 0.6 (1.0-1.7) Influenza Type A Antigen Negative (NEGATIVE) Influenza Type B Antigen Negative (NEGATIVE) O2 Saturation 92 % (92-99) Arterial Blood pH 7.41 (7.35-7.45) Arterial Blood pCO2 at Patient Temp 39 mmHg (35-46) Arterial Blood pO2 at Patient Temp 66 mmHg (85-108) Arterial Blood HCO3 24 mmol/L (21-28) Arterial Blood Base Excess 0 mmol/L (-3-3) FiO2 32 Hemoglobin A1c 5.4 % (4.8-5.6) Phosphorus Level 3.7 mg/dL (2.6-4.7) Thyroid Stimulating Hormone (TSH) 0.590 uIU/mL (0.358-3.74) Test 04/04/19 06:20 04/05/19 03:05 Urine Collection Type Unknown Urine Color Yellow Urine Clarity Clear Urine pH 6.0 Urine Specific [place] 1.020 Urine Protein Negative mg/dL (NEG-TRACE) Urine Glucose (UA) Negative mg/dL (NEG) Urine Ketones (Stick) Negative mg/dL (NEG) Urine Blood Small (NEG) Urine Nitrite Negative (NEG) Urine Bilirubin Negative (NEG) Urine Urobilinogen Dipstick 1.0 mg/dL (0.2 mg/dL) Urine Leukocyte Esterase Negative (NEG) Urine RBC 0 /HPF (0-2) Urine WBC 5-10 /HPF (0-4) Urine Squamous Epithelial Cells Mod /LPF Urine Bacteria 0 /HPF (0-FEW) Sodium Level 142 mmol/L (136-145) Potassium Level 3.7 mmol/L (3.5-5.1) Chloride Level 105 mmol/L (98-107) Carbon Dioxide Level 26 mmol/L (21-32) Anion Gap 11 (6-14) Blood Urea Nitrogen 17 mg/dL (7-20) Creatinine 1.0 mg/dL (0.6-1.0) Estimated GFR (Cockcroft-Gault) 62.1 Glucose Level 120 mg/dL (70-99) Calcium Level 8.1 mg/dL (8.5-10.1) Phosphorus Level 3.8 mg/dL (2.6-4.7) Albumin 2.4 g/dL (3.4-5.0) Laboratory Tests Test 04/05/19 03:05 Sodium Level 142 mmol/L (136-145) Potassium Level 3.7 mmol/L (3.5-5.1) Chloride Level 105 mmol/L (98-107) Carbon Dioxide Level 26 mmol/L (21-32) Anion Gap 11 (6-14) Blood Urea Nitrogen 17 mg/dL (7-20) Creatinine 1.0 mg/dL (0.6-1.0) Estimated GFR (Cockcroft-Gault) 62.1 Glucose Level 120 mg/dL (70-99) Calcium Level 8.1 mg/dL (8.5-10.1) Phosphorus Level 3.8 mg/dL (2.6-4.7) Albumin 2.4 g/dL (3.4-5.0) Microbiology 04/03/19 Blood Culture - Preliminary, Resulted NO GROWTH AFTER 1 DAY Medications Current Medications Sodium Chloride 1,000 ml @ 1,000 mls/hr Q1H IV Last administered on 04/03/19 16:24; Start 04/03/19 at 16:05; Stop 04/03/19 at 17:04; Status DC Albuterol/ Ipratropium (Duoneb) 3 ml 1X ONCE NEB Last administered on 04/03/19at 16:22; Start 04/03/19 at 16:45; Stop 04/03/19 at 16:46; Status DC Methylprednisolone Sodium Succinate (SOLU-Medrol 125MG VIAL) 125 mg 1X ONCE IV Last administered on 04/03/19at 16:23; Start 04/03/19 at 16:45; Stop 04/03/19 at 16:46; Status DC Iohexol (Omnipaque 350 Mg/ml) 75 ml 1X ONCE IV Last administered on 04/03/19 16:51; Start 04/03/19 at 16:45; Stop 04/03/19 at 16:51; Status DC Info (CONTRAST GIVEN -- Rx MONITORING) 1 each PRN DAILY PRN MC SEE COMMENTS; Start 04/03/19 at 17:00; Stop 04/05/19 at 16:59 Piperacillin Sod/ Tazobactam Sod 3.375 gm/Sodium Chloride 50 ml @ 100 mls/hr 1X ONCE IV Last administered on 04/03/19at 17:00; Start 04/03/19 at 17:45; Stop 04/03/19 at 18:14; Status DC Vancomycin HCl 250 ml @ 250 mls/hr 1X ONCE IV ; Start 04/03/19 at 17:15; Stop 04/03/19 at 18:14; Status UNV Vancomycin HCl 2 gm/Sodium Chloride 500 ml @ 250 mls/hr 1X ONCE IV Last administered on 04/03/19at 17:42; Start 04/03/19 at 17:45; Stop 04/03/19 at 19:44; Status DC Furosemide (Lasix) 40 mg [id number] IVP Last administered on 04/05/19at 08:50; Start 04/03/19 at 20:00 Acetaminophen/ Hydrocodone Bitart (Lortab 5/325) 1 tab PRN Q4HRS PRN PO PAIN Last administered on 04/03/19at 20:09; Start 04/03/19 at 18:45; Stop 04/03/19 at 22:37; Status DC Ondansetron HCl (Zofran Odt) 4 mg Q8HRS PO Last administered on 04/05/19at 06:12; Start 04/03/19 at 22:00 Senna/Docusate Sodium (Senna Plus) 2 tab PRN BID PRN PO CONSTIPATION Last administered on 04/04/19at 23:21; Start 04/03/19 at 19:30 Ondansetron HCl (Zofran) 4 mg PRN Q6HRS PRN IV NAUSEA/VOMITING; Start 04/03/19 at 19:30 Acetaminophen (Tylenol) 650 mg PRN Q6HRS PRN PO MILD PAIN / TEMP; Start 04/03/19 at 19:30 Fluoxetine HCl (PROzac) 20 mg DAILY PO Last administered on 04/03/19at 23:36; Start 04/03/19 at 09:00; Stop 04/03/19 at 23:44; Status DC Zolpidem Tartrate (Ambien) 5 mg PRN QHS PRN PO INSOMNIA Last administered on 04/04/19at 23:15; Start 04/03/19 at 22:30 Acetaminophen/ Hydrocodone Bitart (Lortab 10/325) 2 tab PRN Q4HRS PRN PO PAIN Last administered on 04/04/19at 13:22; Start 04/03/19 at 22:30; Stop 04/04/19 at 16:23; Status DC Albuterol Sulfate (Ventolin Neb Soln) 2.5 mg PRN Q4HRS PRN NEB SHORTNESS OF BREATH Last administered on 04/05/19 08:26; Start 04/03/19 at 22:30 Duloxetine HCl (Cymbalta) 20 mg 1X ONCE PO ; Start 04/03/19 at 23:00; Stop 04/03/19 at 23:01; Status Cancel Quetiapine Fumarate (SEROquel) 50 mg 1X ONCE PO ; Start 04/03/19 at 23:00; Stop 04/03/19 at 23:01; Status Cancel Fluoxetine HCl (PROzac) 80 mg DAILY PO Last administered on 04/05/19at 08:47; Start 04/03/19 at 23:55 Clonazepam (KlonoPIN) 0.5 mg 1X ONCE PO Last administered on 04/04/19at 09:21; Start 04/04/19 at 09:00; Stop 04/04/19 at 09:03; Status DC Piperacillin Sod/ Tazobactam Sod 3.375 gm/Sodium Chloride 50 ml @ 100 mls/hr Q6HRS IV Last administered on 04/05/19at 06:13; Start 04/04/19 at 14:00 Piperacillin Sod/ Tazobactam Sod 3.375 gm/Sodium Chloride 50 ml @ 100 mls/hr 1X ONCE IV Last administered on 04/04/19at 10:19; Start 04/04/19 at 09:30; Stop 04/04/19 at 09:59; Status DC Albuterol Sulfate (Ventolin Neb Soln) 2.5 mg PRN Q6HRS PRN INH SHORTNESS OF BREATH; Start 04/04/19 at 12:45; Stop 04/04/19 at 12:50; Status DC Clonazepam (KlonoPIN) 1 mg DAILY PO Last administered on 04/05/19at 08:46; Start 04/05/19 at 09:00 Dicyclomine HCl (Bentyl) 10 mg QID PRN PO ABD PAIN Last administered on 04/04/19at 13:21; Start 04/04/19 at 12:45 Gabapentin (Neurontin) 600 mg TID PO Last administered on 04/05/19 08:47; Start 04/04/19 at 14:00 Nicotine (Nicoderm Cq 21mg) 1 patch DAILY TD Last administered on 04/05/19at 08:48; Start 04/04/19 at 14:30 Oxycodone/ Acetaminophen (Percocet 7.5/ 325) 2 tab PRN Q6HRS PRN PO SEVERE PAIN Last administered on 04/05/19at 06:12; Start 04/04/19 at 16:30 Albuterol/ Ipratropium (Duoneb) 3 ml RTQID NEB ; Start 04/05/19 at 12:00 Active Scripts Active Zofran Odt (Ondansetron) 4 Mg Tab.rapdis 1 Tab SL Q8HRS Proair Hfa Inhaler (Albuterol Sulfate) 8.5 Gm Hfa.aer.ad 1 Puff INH PRN Q6HRS PRN [place] 5-325 Tablet (Acetaminophen/Hydrocodone Bitart) 1 Each Tablet 1 Tab PO Q4- 6HRS [place] 5-325 Tablet (Acetaminophen/Hydrocodone Bitart) 1 Each Tablet 1 Tab PO BID 3 Days [place] 5-325 Tablet (Acetaminophen/Hydrocodone Bitart) 1 Each Tablet 1 Tab PO PRN Q6HRS PRN Amoxicillin 500 Mg Capsule 1 Cap PO QID Ibuprofen 800 Mg Tablet 800 Mg PO PRN Q6HRS PRN 10 Days Penicillin V Potassium 500 Mg Tablet 1 Tab PO QID Amoxicillin 875 Mg Tablet 1 Tab PO BID Bentyl (Dicyclomine Hcl) 10 Mg Capsule 10 Mg PO QID PRN Naproxen 250 Mg Tablet 250 Mg PO BID PRN Macrobid 100 Mg Capsule (Nitrofurantoin Monohyd/M-Cryst) 100 Mg Capsule 1 Cap PO BID Flagyl (Metronidazole) 500 Mg Tablet 1 Tab PO BID Tylenol With Codeine #3 Tablet (Acetaminophen/Codeine Phosphate) 1 Each Tablet 1 Tab PO PRN Q6HRS PRN Bactrim Ds Tablet (Sulfamethoxazole/Trimethoprim) 1 Each Tablet 1 Tab PO BID Reported Klonopin (Clonazepam) 1 Mg Tablet 1 Mg PO DAILY Neurontin (Gabapentin) 600 Mg Tablet 300 Mg PO BID Effexor Xr (Venlafaxine Hcl) 150 Mg Cap.er.24h 300 Mg PO DAILY Hydrocodone-Apap 10-300 (Hydrocodone Bit/Acetaminophen) 1 Each Tablet 1 Tab PO PRN Q6HRS PRN Oxycodone-Acetaminophen 10-325 (Oxycodone Hcl/Acetaminophen) 1 Each Tablet 1 Each PO Effexor Xr (Venlafaxine Hcl) 37.5 Mg Cap.er.24h 37.5 Mg PO Mirena (Levonorgestrel) 1 Each Iud 1 Each IY Lorazepam 0.5 Mg Tablet 0.5 Mg PO Vitals/I & O Vital Sign - Last 24 Hours 04/04/19 04/04/19 04/04/19 04/04/19 11:00 12:21 13:22 15:00 Temp 97.4 98.2 97.4 98.2 Pulse 74 74 Resp 20 18 B/P (MAP) 91/48 (62) 90/50 (63) Pulse Ox 96 93 92 O2 Delivery BiPAP/CPAP Nasal Cannula Nasal Cannula Nasal Cannula O2 Flow Rate 4.0 4.0 4.0 04/04/19 04/04/19 04/04/19 04/04/19 16:02 17:07 19:38 19:40 Temp 97.8 97.8 Pulse 87 Resp 20 B/P (MAP) 102/53 (69) Pulse Ox 96 92 O2 Delivery Nasal Cannula Nasal Cannula Nasal Cannula Nasal Cannula O2 Flow Rate 4.0 4.0 4.0 4.0 04/04/19 04/04/19 04/04/19 04/05/19 20:00 23:15 23:40 01:41 Temp 98.1 98.1 Pulse 78 Resp 18 18 B/P (MAP) 127/58 (81) Pulse Ox 92 94 O2 Delivery Nasal Cannula Nasal Cannula Nasal Cannula BiPAP/CPAP O2 Flow Rate 4.0 4.0 4.0 04/05/19 04/05/19 04/05/19 04/05/19 03:15 06:12 07:00 07:10 Temp 97.7 97.9 97.7 97.9 Pulse 71 71 Resp 20 18 20 18 B/P (MAP) 103/57 (72) 104/55 (71) Pulse Ox 100 100 91 91 O2 Delivery BiPAP/CPAP Nasal Cannula Nasal Cannula O2 Flow Rate 4.0 4.0 04/05/19 08:32 Pulse Ox 93 O2 Delivery Nasal Cannula O2 Flow Rate 4.0 Intake and Output 04/04/19 04/04/19 04/05/19 14:59 22:59 06:59 Intake Total 890 ml 730 ml 830 ml Output Total 550 ml 850 ml 1200 ml Balance 340 ml -120 ml -370 ml TODD BROWN MD April 05, 2019 09:25
--- NOTE | 2019-04-05 09:48 | CONS ---
DATE OF CONSULTATION: 04/04/2019 ATTENDING PHYSICIAN: Jose D Miguel M.D. REASON FOR CONSULTATION: The patient seen in Pulmonary consultation at the request of Dr. Miguel for abnormal CT chest and hypoxemia. HISTORY OF PRESENT ILLNESS: The patient is a 38-year-old who presented with increasing shortness of breath. She had a related to preeclampsia on the 08 of March, presented with at that time bilateral lower extremity edema. The patient states that she did not improve after her . [facility] with bilateral lower extremity edema, had extensive evaluation and a CT chest diagnosed with pneumonia, treated with antibiotics. She then was discharged. The patient represented with a 3-day history of increasing shortness of breath, fever of 102. She continues to smoke. She has O2 saturations of 82% in the Emergency Room. She was admitted. I was asked to see her in consultation. She has also required BiPAP. She denies cough and no hemoptysis. She does smoke and experiences approximately 2-3 acute exacerbations of COPD per year. PAST MEDICAL HISTORY: Tobacco dependence and COPD. No prior history of asthma. Anxiety. She has a history of right knee injection. PAST SURGICAL HISTORY: Recent as a consequence of preeclampsia. REVIEW OF SYSTEMS: CONSTITUTIONAL: Subjective fever. EYES: No change in visual acuity. HEENT: No nasal congestion or sore throat. PULMONARY: As indicated above. CARDIOVASCULAR: No chest pain or pressure. GASTROINTESTINAL: No nausea, vomiting or diarrhea. GENITOURINARY: No dysuria or frequency. MUSCULOSKELETAL: No localized muscle aches or joint pains. SKIN: No new skin rashes. NEUROLOGICAL: No headaches, diplopia or blurred vision. CURRENT MEDICATIONS: List was reviewed. The patient has been seen by Infectious Disease Service. PHYSICAL EXAMINATION: VITAL SIGNS: She has had a T-max of 98.2 since admission. HEENT: Eyes, the sclerae were nonicteric. NECK: Jugular venous distention was not elevated. No lymphadenopathy. CHEST: Full expansion. LUNGS: Crackles in the bases throughout both lung shepherd. No wheezes. CARDIOVASCULAR: Regular rate and rhythm with S1 and S2. No S3. ABDOMEN: Soft, nontender and nondistended. EXTREMITIES: No clubbing, cyanosis or edema. NEUROLOGICAL: The patient was awake, alert and following commands. A detailed neuro exam was not performed. LABORATORY DATA: Labs were reviewed. White count was normal. Hemoglobin and hematocrit were noted. Arterial blood gas: pH of 7.41, PaCO2 of 39 and PaO2 of 66. Electrolytes were noted. BNP was markedly elevated. Troponin was not elevated. Albumin was low. TSH was normal. Serology for influenza was negative. UA was noted. RADIOLOGICAL DATA: Chest x-ray and CT as indicated above, bilateral pulmonary infiltrates. IMPRESSION: 1. Acute hypoxemic respiratory failure. Suspect mostly secondary to acute pulmonary edema. 2. Bilateral pulmonary infiltrates seen on CT chest and x-ray, suspect edema versus questionable infection, although the patient's clinical presentation is not compatible with infection. 3. Status post emergent for preeclampsia. 4. Abnormal x-ray, we will follow. PLAN: 1. I recommend diuresis. 2. Echocardiogram is pending. 3. Empiric antibiotics. 4. DVT and GI prophylaxis. 5. The patient has clinical symptoms and signs of obstructive sleep apnea. We will require an outpatient polysomnogram. I do appreciate the privilege in sharing in the patient's care. GERARD LÓPEZ MD DR: MAGDY/jerod JOB#: [id number] / [id number]
[2019-04-05 10:52] VITALS: BP 139/76
[2019-04-05] MEDS: IPRATRPIUM/ALBUTEROL 0.5/2.5MG 3 ML NEBU. NEB SCH ×3 (12:50→19:58)
[2019-04-05] MEDS ORDERED: FUROSEMIDE 40 MG/4 ML VIAL. IVP ONE (14:15)
--- NOTE | 2019-04-05 14:19 | PDOC ---
CARDIO Progress Notes Date and Time Date of Service 04/05/2019 Time of Evaluation 1350 Subjective Subjective: No Chest Pain, No shortness of breath, No Palpitations Vitals Vitals Vital Signs Date Time Temp Pulse Resp B/P (MAP) Pulse Ox O2 Delivery O2 Flow Rate FiO2 04/05/19 12:51 Nasal Cannula 4.0 04/05/19 12:25 18 97 04/05/19 10:52 97.8 65 139/76 (97) 97.8 Weight Weight [ ] Input and Output Intake and Output Intake and Output 04/05/19 07:00 Intake Total 2450 ml Output Total 2600 ml Balance -150 ml Intake Oral 2150 ml IV Total 150 ml Other 150 ml Output Urine Total 2600 ml # Voids 4 Laboratory Labs Laboratory Tests Test 04/05/19 03:05 Sodium Level 142 mmol/L (136-145) Potassium Level 3.7 mmol/L (3.5-5.1) Chloride Level 105 mmol/L (98-107) Carbon Dioxide Level 26 mmol/L (21-32) Anion Gap 11 (6-14) Blood Urea Nitrogen 17 mg/dL (7-20) Creatinine 1.0 mg/dL (0.6-1.0) Estimated GFR (Cockcroft-Gault) 62.1 Glucose Level 120 mg/dL (70-99) Calcium Level 8.1 mg/dL (8.5-10.1) Phosphorus Level 3.8 mg/dL (2.6-4.7) Albumin 2.4 g/dL (3.4-5.0) Microbiology Micro Microbiology 04/03/19 Blood Culture - Preliminary, Resulted NO GROWTH AFTER 1 DAY Physical Exam HEENT: Neck Supple W Full Motion Chest: Symmetric LUNGS: Clear to Auscultation Heart: S1S2, RRR (SR) Abdomen: Soft N/T Extremities: No Calf Tenderness, Other (1-2+ bilateral LE pitting edema) Neurology: alert, oriented, follow commands Assessment Assessment 1. Acute respiratory failure secondary multifactorial due to CHF and possible pneumonia, opioid use and PAUL 2. Acute on chronic diastolic heart failure: EF and WM nml. Currently compensated. Possibly induced by pulmonary issues including PAUL/obesity 3. ; s/p 03/08 4. H/o preeclampsia 5. Metabolic syndrome vs new onset DM2 6. Obesity 7. Suspecting PAUL Recommendations Change to PO lasix tomorrow She does use formula and not breast feeding. Wt loss. Will need PAUL outpt w/u. Antibiotics per PCP. Check A1C. Will consider for treadmill EKG stress test as an outpt. Curb opioid use. Na restriction. MAGALI BRISCOE SENIOR SOFTWARE DEVELOPER April 05, 2019 14:19
[2019-04-05] MEDS ORDERED: ONDANSETRON ODT 4 MG TAB.RAPDIS. PO PRN (14:45)
[2019-04-05 14:57] VITALS: BP 93/50
[2019-04-05 15:12] LABS: CHOLESTEROL/HDL RATIO 8.5
[2019-04-05] MEDS ORDERED: predniSONE 10 MG TABLET PO ONE (15:45)
[2019-04-05 19:25] VITALS: BP 114/61
[2019-04-05] MEDS: LACTOBACILLUS RHAMNOSUS GG 1 CAPSULE. PO SCH (20:19)
[2019-04-05 22:55] VITALS: BP 106/55
[2019-04-05] MEDS: ZOLPIDEM 5 MG TABLET. PO PRN (23:39)
[2019-04-06] MEDS: oxyCODONE/APAP 7.5/325 1 TAB TABLET PO PRN ×4 (02:56→20:53)
[2019-04-06 03:30] VITALS: BP 105/52
[2019-04-06] MEDS: PIPERACILLIN/TAZOBACTAM 3.375 GM in IV NORMAL SALINE 50ML 50 ML IV SCH (05:02)
--- NOTE | 2019-04-06 05:34 | PDOC ---
Infectious Disease Note Subjective Subjective pt is awake, hypoxic with walking ROS ROS no n/v/d/ Vital Sign Vital Signs Vital Signs Date Time Temp Pulse Resp B/P (MAP) Pulse Ox O2 Delivery O2 Flow Rate FiO2 04/06/19 03:56 20 95 Nasal Cannula 4.0 04/06/19 03:30 97.8 79 105/52 (69) 97.8 Physical Exam PHYSICAL EXAM GENERAL: On examination, alert oriented female, not in any distress. VITAL SIGNS: Vitals are stable, afebrile completely since she is admitted. HEENT: NAD. NECK: Supple, no JVP, no lymphadenopathy. LUNGS: Crackles at the bases present. HEART: S1, S2 regular. No gallop or murmur. ABDOMEN: Soft, nontender. No organomegaly. EXTREMITIES: She does have mild pitting edema. There is no redness. There is no cyanosis. NEUROLOGIC: The patient is neurologically alert, awake and appropriate. No focal neurologic deficit. Labs Micro Microbiology 04/03/19 Blood Culture - Preliminary, Resulted NO GROWTH AFTER 1 DAY Objective Assessment Fever at home CHF h/o Preeclampsia Post ? Pneumonia Hypoxia Plan Plan of Care zosyn change to augmentin pt/ot LEO CROWELL MD April 06, 2019 05:34
[2019-04-06 06:40] LABS: BASO % 0 % (0-3); EOS % 0 % (0-3); HEMOGLOBIN 9.3 g/dL (12.0-15.5); LYMPH # 1.5 x10^3/uL (1.0-4.8); LYMPH % 13 % (24-48); MEAN CORPUSCULAR HEMOGLOBIN 26 pg (25-35); MEAN CORPUSCULAR HGB CONC 33 g/dL (31-37); MEAN CORPUSCULAR VOLUME 79 fL (79-100); MONO # 0.5 x10^3/uL (0.0-1.1); MONO % 5 % (0-9); NEUT # 9.2 x10^3uL (1.8-7.7); NEUT % 82 % (31-73); PLATELET COUNT 408 x10^3/uL (140-400); RED BLOOD COUNT 3.53 x10^6/uL (3.50-5.40); RED CELL DISTRIBUTION WIDTH 15.5 % (11.5-14.5); WHITE BLOOD COUNT 11.2 x10^3/uL (4.0-11.0)
[2019-04-06 07:25] VITALS: BP 86/39
[2019-04-06 07:38] LABS: ALBUMIN 2.5 g/dL (3.4-5.0); ALBUMIN/GLOBULIN RATIO 0.6 (1.0-1.7); CALCIUM 8.1 mg/dL (8.5-10.1); GFR 62.1; PHOSPHORUS 4.1 mg/dL (2.6-4.7); POTASSIUM 4.2 mmol/L (3.5-5.1); TOTAL BILIRUBIN 0.2 mg/dL (0.2-1.0); TOTAL PROTEIN 6.8 g/dL (6.4-8.2)
--- NOTE | 2019-04-06 08:27 | RAD ---
EXAM: Chest, single view. HISTORY: Congestive heart failure. COMPARISON: 04/03/2019 FINDINGS: A frontal view of the chest obtained. There has been minimal interval decrease in diffuse interstitial infiltrate. There is no consolidation, pleural effusion or pneumothorax. There is a stable prominent cardiac silhouette, a component of which is due to portable technique. IMPRESSION: Slight interval decrease in diffuse interstitial infiltrate. Electronically signed by: Evelin Mays MD (04/06/2019 8:24 AM) [place] [id number]
--- NOTE | 2019-04-06 08:44 | NUR ---
Pt would like to discuss stopping gabapentin. Pt thinks she is on too high of dose for her. States it is making her too sleepy. Not helping neuropathy in hands. Addendum: 04/06/19 at 1121 by MELI ETIENNE RN RN Per rich Verdugo this morning. Change gabapentin from 600 mg bid to 300 mg bid Addendum: 04/06/19 at 1414 by MELI ETIENNE RN RN Correction on gabapentin dosing: Pt to take 300 mg TID/
[2019-04-06] MEDS: NICOTINE 21MG PATCH. TD SCH (09:00)
[2019-04-06] MEDS: FUROSEMIDE 40 MG TABLET. PO SCH (09:00)
[2019-04-06] MEDS: clonazePAM 1 MG TABLET PO SCH (09:00)
[2019-04-06] MEDS: FLUoxetine HCL 20 MG CAPSULE PO SCH (09:01)
[2019-04-06] MEDS: LACTOBACILLUS RHAMNOSUS GG 1 CAPSULE. PO SCH ×2 (09:01→20:52)
[2019-04-06] MEDS: GABAPENTIN 300 MG CAPSULE. PO SCH ×3 (09:01→20:53)
[2019-04-06] MEDS: predniSONE 10 MG TABLET PO SCH (09:01)
--- NOTE | 2019-04-06 09:01 | PDOC ---
PULMONARY PROGRESS NOTES Subjective PT LESS SOA Vitals Vital Signs Date Time Temp Pulse Resp B/P (MAP) Pulse Ox O2 Delivery O2 Flow Rate FiO2 04/06/19 08:00 Nasal Cannula 4.0 04/06/19 07:25 98.3 62 18 86/39 (55) 92 98.3 ROS: No Nausea, No Chest Pain, No Abdominal Pain, No Increase Cough General: Alert Lungs: Crackles Cardiovascular: S1, S2 Abdomen: Soft Neuro Exam: Alert Extremities: No Edema Skin: Warm Labs Laboratory Tests Test 04/05/19 03:05 04/06/19 05:25 Sodium Level 142 mmol/L (136-145) 142 mmol/L (136-145) Potassium Level 3.7 mmol/L (3.5-5.1) 4.2 mmol/L (3.5-5.1) Chloride Level 105 mmol/L (98-107) 103 mmol/L (98-107) Carbon Dioxide Level 26 mmol/L (21-32) 29 mmol/L (21-32) Anion Gap 11 (6-14) 10 (6-14) Blood Urea Nitrogen 17 mg/dL (7-20) 17 mg/dL (7-20) Creatinine 1.0 mg/dL (0.6-1.0) 1.0 mg/dL (0.6-1.0) Estimated GFR (Cockcroft-Gault) 62.1 62.1 Glucose Level 120 mg/dL (70-99) 139 mg/dL (70-99) Calcium Level 8.1 mg/dL (8.5-10.1) 8.1 mg/dL (8.5-10.1) Phosphorus Level 3.8 mg/dL (2.6-4.7) 4.1 mg/dL (2.6-4.7) Albumin 2.4 g/dL (3.4-5.0) 2.5 g/dL (3.4-5.0) Triglycerides Level 134 mg/dL (0-150) Cholesterol Level 128 mg/dL (0-200) LDL Cholesterol, Calculated 86 mg/dL (0-100) VLDL Cholesterol, Calculated 27 mg/dL (0-40) Non-HDL Cholesterol Calculated 113 mg/dL (0-129) HDL Cholesterol 15 mg/dL (40-60) Cholesterol/HDL Ratio 8.5 White Blood Count 11.2 x10^3/uL (4.0-11.0) Red Blood Count 3.53 x10^6/uL (3.50-5.40) Hemoglobin 9.3 g/dL (12.0-15.5) Hematocrit 28.0 % (36.0-47.0) Mean Corpuscular Volume 79 fL (79-100) Mean Corpuscular Hemoglobin 26 pg (25-35) Mean Corpuscular Hemoglobin Concent 33 g/dL (31-37) Red Cell Distribution Width 15.5 % (11.5-14.5) Platelet Count 408 x10^3/uL (140-400) Neutrophils (%) (Auto) 82 % (31-73) Lymphocytes (%) (Auto) 13 % (24-48) Monocytes (%) (Auto) 5 % (0-9) Eosinophils (%) (Auto) 0 % (0-3) Basophils (%) (Auto) 0 % (0-3) Neutrophils # (Auto) 9.2 x10^3uL (1.8-7.7) Lymphocytes # (Auto) 1.5 x10^3/uL (1.0-4.8) Monocytes # (Auto) 0.5 x10^3/uL (0.0-1.1) Eosinophils # (Auto) 0.0 x10^3/uL (0.0-0.7) Basophils # (Auto) 0.0 x10^3/uL (0.0-0.2) BUN/Creatinine Ratio 17 (6-20) Total Bilirubin 0.2 mg/dL (0.2-1.0) Aspartate Amino Transf (AST/SGOT) 17 U/L (15-37) Alanine Aminotransferase (ALT/SGPT) 27 U/L (14-59) Alkaline Phosphatase 135 U/L (46-116) Total Protein 6.8 g/dL (6.4-8.2) Albumin/Globulin Ratio 0.6 (1.0-1.7) Laboratory Tests Test 04/06/19 05:25 White Blood Count 11.2 x10^3/uL (4.0-11.0) Red Blood Count 3.53 x10^6/uL (3.50-5.40) Hemoglobin 9.3 g/dL (12.0-15.5) Hematocrit 28.0 % (36.0-47.0) Mean Corpuscular Volume 79 fL (79-100) Mean Corpuscular Hemoglobin 26 pg (25-35) Mean Corpuscular Hemoglobin Concent 33 g/dL (31-37) Red Cell Distribution Width 15.5 % (11.5-14.5) Platelet Count 408 x10^3/uL (140-400) Neutrophils (%) (Auto) 82 % (31-73) Lymphocytes (%) (Auto) 13 % (24-48) Monocytes (%) (Auto) 5 % (0-9) Eosinophils (%) (Auto) 0 % (0-3) Basophils (%) (Auto) 0 % (0-3) Neutrophils # (Auto) 9.2 x10^3uL (1.8-7.7) Lymphocytes # (Auto) 1.5 x10^3/uL (1.0-4.8) Monocytes # (Auto) 0.5 x10^3/uL (0.0-1.1) Eosinophils # (Auto) 0.0 x10^3/uL (0.0-0.7) Basophils # (Auto) 0.0 x10^3/uL (0.0-0.2) Sodium Level 142 mmol/L (136-145) Potassium Level 4.2 mmol/L (3.5-5.1) Chloride Level 103 mmol/L (98-107) Carbon Dioxide Level 29 mmol/L (21-32) Anion Gap 10 (6-14) Blood Urea Nitrogen 17 mg/dL (7-20) Creatinine 1.0 mg/dL (0.6-1.0) Estimated GFR (Cockcroft-Gault) 62.1 BUN/Creatinine Ratio 17 (6-20) Glucose Level 139 mg/dL (70-99) Calcium Level 8.1 mg/dL (8.5-10.1) Phosphorus Level 4.1 mg/dL (2.6-4.7) Total Bilirubin 0.2 mg/dL (0.2-1.0) Aspartate Amino Transf (AST/SGOT) 17 U/L (15-37) Alanine Aminotransferase (ALT/SGPT) 27 U/L (14-59) Alkaline Phosphatase 135 U/L (46-116) Total Protein 6.8 g/dL (6.4-8.2) Albumin 2.5 g/dL (3.4-5.0) Albumin/Globulin Ratio 0.6 (1.0-1.7) Medications Active Scripts Medications Dose Route/Sig Max Daily Dose Days Date Category Zofran Odt (Ondansetron) 4 Mg Tab.rapdis 1 Tab SL Q8HRS 08/29/18 Rx Proair Hfa Inhaler (Albuterol Sulfate) 8.5 Gm Hfa.aer.ad 1 Puff INH PRN Q6HRS PRN 08/01/18 Rx [place] 5-325 Tablet (Acetaminophen/Hydrocodone Bitart) 1 Each Tablet 1 Tab PO Q4-6HRS 04/21/18 Rx [place] 5-325 Tablet (Acetaminophen/Hydrocodone Bitart) 1 Each Tablet 1 Tab PO BID 3 04/18/18 Rx [place] 5-325 Tablet (Acetaminophen/Hydrocodone Bitart) 1 Each Tablet 1 Tab PO PRN Q6HRS PRN 08/02/17 Rx Amoxicillin 500 Mg Capsule 1 Cap PO QID 08/02/17 Rx Ibuprofen 800 Mg Tablet 800 Mg PO PRN Q6HRS PRN 10 05/19/17 Rx Penicillin V Potassium 500 Mg Tablet 1 Tab PO QID 05/19/17 Rx Amoxicillin 875 Mg Tablet 1 Tab PO BID 11/27/16 Rx Bentyl (Dicyclomine Hcl) 10 Mg Capsule 10 Mg PO QID PRN 11/23/16 Rx Naproxen 250 Mg Tablet 250 Mg PO BID PRN 11/23/16 Rx Macrobid 100 Mg Capsule (Nitrofurantoin Monohyd/M-Cryst) 100 Mg Capsule 1 Cap PO BID 09/28/16 Rx Flagyl (Metronidazole) 500 Mg Tablet 1 Tab PO BID 09/28/16 Rx Tylenol With Codeine #3 Tablet (Acetaminophen/Codeine Phosphate) 1 Each Tablet 1 Tab PO PRN Q6HRS PRN 07/31/16 Rx Bactrim Ds Tablet (Sulfamethoxazole/Trimethoprim) 1 Each Tablet 1 Tab PO BID 07/31/16 Rx Klonopin (Clonazepam) 1 Mg Tablet 1 Mg PO DAILY 06/09/14 Reported Neurontin (Gabapentin) 600 Mg Tablet 300 Mg PO BID 06/09/14 Reported Effexor Xr (Venlafaxine Hcl) 150 Mg Cap.er.24h 300 Mg PO DAILY 06/09/14 Reported Hydrocodone-Apap 10-300 (Hydrocodone Bit/Acetaminophen) 1 Each Tablet 1 Tab PO PRN Q6HRS PRN 06/09/14 Reported Oxycodone-Acetaminophen 10-325 (Oxycodone Hcl/Acetaminophen) 1 Each Tablet 1 Each PO 06/09/14 Reported Effexor Xr (Venlafaxine Hcl) 37.5 Mg Cap.er.24h 37.5 Mg PO 11/08/13 Reported Mirena (Levonorgestrel) 1 Each Iud 1 Each IY 11/08/13 Reported Lorazepam 0.5 Mg Tablet 0.5 Mg PO 11/08/13 Reported Impression . IMPRESSION: 1. Acute hypoxemic respiratory failure. Suspect mostly secondary to acute pulmonary edema. 2. Bilateral pulmonary infiltrates seen on CT chest and x-ray, suspect edema versus questionable infection, although the patient's clinical presentation is not compatible with infection. 3. Status post emergent for preeclampsia. 4. Abnormal x-ray, 5. AECOPD echo The left ventricle is normal size. The left ventricular systolic function is normal and the ejection fraction is within normal range. The Ejection Fraction is 6o-65%. There is no significant aortic valvular stenosis. Doppler and Color Flow revealed no significant aortic regurgitation. Doppler and Color-flow revealed mild mitral regurgitation. Doppler and Color Flow revealed trace tricuspid regurgitation. The PA pressure was estimated at 42 mmHg. Signed by : Ag Marcelo MD Electronically Approved : 04/04/2019 13:13:21 Plan . 6 MIN WALK IN AM OK TO D/C SOON FROM MY [facility] FOR NON CARDIOGENIC PULMONARY EDEMA ECHO REPORTED NOTED ANTI BX PER ID WILL ADD STEROIDS OUT PT SLEEP STUDY PRN BIPAP DVT AND GI PROPH GERARD LÓPEZ MD April 06, 2019 09:00
[2019-04-06] MEDS: IPRATRPIUM/ALBUTEROL 0.5/2.5MG 3 ML NEBU. NEB SCH ×4 (09:21→20:32)
--- NOTE | 2019-04-06 10:22 | PDOC ---
PROGRESS NOTES Chief Complaint Chief Complaint sob improved. has not walked much. BP low this AM. History of Present Illness History of Present Illness VTE Prophylaxis Ordered VTE Prophylaxis Devices: Yes VTE Pharmacological Prophylaxi: Yes Assessment/Plan Assessment/Plan Assessment Acute Hypoxic Resp failure secondary to Acute CHF, low clinical suspicion for PNA LE edema SEC CHF h/o Preeclampsia Post No evidence of central pulmonary embolism. Diffuse groundglass airspace opacities identified in the bilateral perihilar region likely congestive changes or diffuse infiltrates. Mild mediastinal and bilateral hilar lymphadenopathy. Doppler and Color Flow revealed trace tricuspid regurgitation. The PA pressure was estimated at 42 mmHg.C/W MOD PULM HTN Plan zosyn for now follow cultures apprec ID and pulm dvt prophylaxis changed to PO lasix patient reports drowsiness on neurontin. decrease dose to 300 daily from 600 daily 41 min pt exam , chart review, > 50% of time spent with exam, chart review, pt care coordination Vitals Vitals Vital Signs Date Time Temp Pulse Resp B/P (MAP) Pulse Ox O2 Delivery O2 Flow Rate FiO2 04/06/19 09:23 98 Nasal Cannula 4.0 04/06/19 09:02 18 04/06/19 07:25 98.3 62 86/39 (55) 98.3 Physical Exam Physical Exam GENERAL: On examination, alert oriented female, not in any distress. VITAL SIGNS: Vitals are stable, afebrile completely since she is admitted. HEENT: NAD. NECK: Supple, no JVP, no lymphadenopathy. LUNGS: Crackles at the bases present. HEART: S1, S2 regular. No gallop or murmur. ABDOMEN: Soft, nontender. No organomegaly. EXTREMITIES: She does have mild pitting edema. There is no redness. There is no cyanosis. NEUROLOGIC: The patient is neurologically alert, awake and appropriate. No focal neurologic deficit. General: Alert, Oriented X3, Cooperative, No acute distress, mild distress Heart: Regular rate, Normal S1, Normal S2 Lungs: Crackles Abdomen: Normal bowel sounds, Soft Extremities: No clubbing, No cyanosis, Other (anasarca) Skin: No significant lesion Labs LABS Laboratory Tests Test 04/06/19 05:25 White Blood Count 11.2 x10^3/uL (4.0-11.0) Red Blood Count 3.53 x10^6/uL (3.50-5.40) Hemoglobin 9.3 g/dL (12.0-15.5) Hematocrit 28.0 % (36.0-47.0) Mean Corpuscular Volume 79 fL (79-100) Mean Corpuscular Hemoglobin 26 pg (25-35) Mean Corpuscular Hemoglobin Concent 33 g/dL (31-37) Red Cell Distribution Width 15.5 % (11.5-14.5) Platelet Count 408 x10^3/uL (140-400) Neutrophils (%) (Auto) 82 % (31-73) Lymphocytes (%) (Auto) 13 % (24-48) Monocytes (%) (Auto) 5 % (0-9) Eosinophils (%) (Auto) 0 % (0-3) Basophils (%) (Auto) 0 % (0-3) Neutrophils # (Auto) 9.2 x10^3uL (1.8-7.7) Lymphocytes # (Auto) 1.5 x10^3/uL (1.0-4.8) Monocytes # (Auto) 0.5 x10^3/uL (0.0-1.1) Eosinophils # (Auto) 0.0 x10^3/uL (0.0-0.7) Basophils # (Auto) 0.0 x10^3/uL (0.0-0.2) Sodium Level 142 mmol/L (136-145) Potassium Level 4.2 mmol/L (3.5-5.1) Chloride Level 103 mmol/L (98-107) Carbon Dioxide Level 29 mmol/L (21-32) Anion Gap 10 (6-14) Blood Urea Nitrogen 17 mg/dL (7-20) Creatinine 1.0 mg/dL (0.6-1.0) Estimated GFR (Cockcroft-Gault) 62.1 BUN/Creatinine Ratio 17 (6-20) Glucose Level 139 mg/dL (70-99) Calcium Level 8.1 mg/dL (8.5-10.1) Phosphorus Level 4.1 mg/dL (2.6-4.7) Total Bilirubin 0.2 mg/dL (0.2-1.0) Aspartate Amino Transf (AST/SGOT) 17 U/L (15-37) Alanine Aminotransferase (ALT/SGPT) 27 U/L (14-59) Alkaline Phosphatase 135 U/L (46-116) Total Protein 6.8 g/dL (6.4-8.2) Albumin 2.5 g/dL (3.4-5.0) Albumin/Globulin Ratio 0.6 (1.0-1.7) Assessment and Plan Assessmemt and Plan Problems Medical Problems: (1) Anemia Status: Acute (2) CHF (congestive heart failure) Status: Acute (3) HCAP (healthcare-associated pneumonia) Status: Acute (4) Hypoxia Status: Acute (5) cardiomyopathy Status: Acute (6) Tobacco abuse Status: Acute Comment Review of Relevant I have reviewed the following items kong (where applicable) has been applied. Labs Laboratory Tests Test 04/05/19 03:05 04/06/19 05:25 Sodium Level 142 mmol/L (136-145) 142 mmol/L (136-145) Potassium Level 3.7 mmol/L (3.5-5.1) 4.2 mmol/L (3.5-5.1) Chloride Level 105 mmol/L (98-107) 103 mmol/L (98-107) Carbon Dioxide Level 26 mmol/L (21-32) 29 mmol/L (21-32) Anion Gap 11 (6-14) 10 (6-14) Blood Urea Nitrogen 17 mg/dL (7-20) 17 mg/dL (7-20) Creatinine 1.0 mg/dL (0.6-1.0) 1.0 mg/dL (0.6-1.0) Estimated GFR (Cockcroft-Gault) 62.1 62.1 Glucose Level 120 mg/dL (70-99) 139 mg/dL (70-99) Calcium Level 8.1 mg/dL (8.5-10.1) 8.1 mg/dL (8.5-10.1) Phosphorus Level 3.8 mg/dL (2.6-4.7) 4.1 mg/dL (2.6-4.7) Albumin 2.4 g/dL (3.4-5.0) 2.5 g/dL (3.4-5.0) Triglycerides Level 134 mg/dL (0-150) Cholesterol Level 128 mg/dL (0-200) LDL Cholesterol, Calculated 86 mg/dL (0-100) VLDL Cholesterol, Calculated 27 mg/dL (0-40) Non-HDL Cholesterol Calculated 113 mg/dL (0-129) HDL Cholesterol 15 mg/dL (40-60) Cholesterol/HDL Ratio 8.5 White Blood Count 11.2 x10^3/uL (4.0-11.0) Red Blood Count 3.53 x10^6/uL (3.50-5.40) Hemoglobin 9.3 g/dL (12.0-15.5) Hematocrit 28.0 % (36.0-47.0) Mean Corpuscular Volume 79 fL (79-100) Mean Corpuscular Hemoglobin 26 pg (25-35) Mean Corpuscular Hemoglobin Concent 33 g/dL (31-37) Red Cell Distribution Width 15.5 % (11.5-14.5) Platelet Count 408 x10^3/uL (140-400) Neutrophils (%) (Auto) 82 % (31-73) Lymphocytes (%) (Auto) 13 % (24-48) Monocytes (%) (Auto) 5 % (0-9) Eosinophils (%) (Auto) 0 % (0-3) Basophils (%) (Auto) 0 % (0-3) Neutrophils # (Auto) 9.2 x10^3uL (1.8-7.7) Lymphocytes # (Auto) 1.5 x10^3/uL (1.0-4.8) Monocytes # (Auto) 0.5 x10^3/uL (0.0-1.1) Eosinophils # (Auto) 0.0 x10^3/uL (0.0-0.7) Basophils # (Auto) 0.0 x10^3/uL (0.0-0.2) BUN/Creatinine Ratio 17 (6-20) Total Bilirubin 0.2 mg/dL (0.2-1.0) Aspartate Amino Transf (AST/SGOT) 17 U/L (15-37) Alanine Aminotransferase (ALT/SGPT) 27 U/L (14-59) Alkaline Phosphatase 135 U/L (46-116) Total Protein 6.8 g/dL (6.4-8.2) Albumin/Globulin Ratio 0.6 (1.0-1.7) Laboratory Tests Test 04/06/19 05:25 White Blood Count 11.2 x10^3/uL (4.0-11.0) Red Blood Count 3.53 x10^6/uL (3.50-5.40) Hemoglobin 9.3 g/dL (12.0-15.5) Hematocrit 28.0 % (36.0-47.0) Mean Corpuscular Volume 79 fL (79-100) Mean Corpuscular Hemoglobin 26 pg (25-35) Mean Corpuscular Hemoglobin Concent 33 g/dL (31-37) Red Cell Distribution Width 15.5 % (11.5-14.5) Platelet Count 408 x10^3/uL (140-400) Neutrophils (%) (Auto) 82 % (31-73) Lymphocytes (%) (Auto) 13 % (24-48) Monocytes (%) (Auto) 5 % (0-9) Eosinophils (%) (Auto) 0 % (0-3) Basophils (%) (Auto) 0 % (0-3) Neutrophils # (Auto) 9.2 x10^3uL (1.8-7.7) Lymphocytes # (Auto) 1.5 x10^3/uL (1.0-4.8) Monocytes # (Auto) 0.5 x10^3/uL (0.0-1.1) Eosinophils # (Auto) 0.0 x10^3/uL (0.0-0.7) Basophils # (Auto) 0.0 x10^3/uL (0.0-0.2) Sodium Level 142 mmol/L (136-145) Potassium Level 4.2 mmol/L (3.5-5.1) Chloride Level 103 mmol/L (98-107) Carbon Dioxide Level 29 mmol/L (21-32) Anion Gap 10 (6-14) Blood Urea Nitrogen 17 mg/dL (7-20) Creatinine 1.0 mg/dL (0.6-1.0) Estimated GFR (Cockcroft-Gault) 62.1 BUN/Creatinine Ratio 17 (6-20) Glucose Level 139 mg/dL (70-99) Calcium Level 8.1 mg/dL (8.5-10.1) Phosphorus Level 4.1 mg/dL (2.6-4.7) Total Bilirubin 0.2 mg/dL (0.2-1.0) Aspartate Amino Transf (AST/SGOT) 17 U/L (15-37) Alanine Aminotransferase (ALT/SGPT) 27 U/L (14-59) Alkaline Phosphatase 135 U/L (46-116) Total Protein 6.8 g/dL (6.4-8.2) Albumin 2.5 g/dL (3.4-5.0) Albumin/Globulin Ratio 0.6 (1.0-1.7) Microbiology 04/03/19 Blood Culture - Preliminary, Resulted NO GROWTH AFTER 2 DAYS 04/04/19 Urine Culture - Final, Complete 04/04/19 Urine Culture Result 1 (MARIXA) - Final, Complete Medications Current Medications Sodium Chloride 1,000 ml @ 1,000 mls/hr Q1H IV Last administered on 04/03/19at 16:24; Start 04/03/19 at 16:05; Stop 04/03/19 at 17:04; Status DC Albuterol/ Ipratropium (Duoneb) 3 ml 1X ONCE NEB Last administered on 04/03/19at 16:22; Start 04/03/19 at 16:45; Stop 04/03/19 at 16:46; Status DC Methylprednisolone Sodium Succinate (SOLU-Medrol 125MG VIAL) 125 mg 1X ONCE IV Last administered on 04/03/19at 16:23; Start 04/03/19 at 16:45; Stop 04/03/19 at 16:46; Status DC Iohexol (Omnipaque 350 Mg/ml) 75 ml 1X ONCE IV Last administered on 04/03/19at 16:51; Start 04/03/19 at 16:45; Stop 04/03/19 at 16:51; Status DC Info (CONTRAST GIVEN -- Rx MONITORING) 1 each PRN DAILY PRN MC SEE COMMENTS; Start 04/03/19 at 17:00; Stop 04/05/19 at 16:59; Status DC Piperacillin Sod/ Tazobactam Sod 3.375 gm/Sodium Chloride 50 ml @ 100 mls/hr 1X ONCE IV Last administered on 04/03/19at 17:00; Start 04/03/19 at 17:45; Stop 04/03/19 at 18:14; Status DC Vancomycin HCl 250 ml @ 250 mls/hr 1X ONCE IV ; Start 04/03/19 at 17:15; Stop 04/03/19 at 18:14; Status UNV Vancomycin HCl 2 gm/Sodium Chloride 500 ml @ 250 mls/hr 1X ONCE IV Last administered on 04/03/19 17:42; Start 04/03/19 at 17:45; Stop 04/03/19 at 19:44; Status DC Furosemide (Lasix) 40 mg [id number] IVP Last administered on 04/05/19at 08:50; Start 04/03/19 at 20:00; Stop 04/05/19 at 14:19; Status DC Acetaminophen/ Hydrocodone Bitart (Lortab 5/325) 1 tab PRN Q4HRS PRN PO PAIN Last administered on 04/03/19 20:09; Start 04/03/19 at 18:45; Stop 04/03/19 at 22:37; Status DC Ondansetron HCl (Zofran Odt) 4 mg Q8HRS PO Last administered on 04/05/19 06:12; Start 04/03/19 at 22:00; Stop 04/05/19 at 14:35; Status DC Senna/Docusate Sodium (Senna Plus) 2 tab PRN BID PRN PO CONSTIPATION Last administered on 04/04/19at 23:21; Start 04/03/19 at 19:30 Ondansetron HCl (Zofran) 4 mg PRN Q6HRS PRN IV NAUSEA/VOMITING; Start 04/03/19 at 19:30 Acetaminophen (Tylenol) 650 mg PRN Q6HRS PRN PO MILD PAIN / TEMP; Start 04/03/19 at 19:30 Fluoxetine HCl (PROzac) 20 mg DAILY PO Last administered on 04/03/19at 23:36; Start 04/03/19 at 09:00; Stop 04/03/19 at 23:44; Status DC Zolpidem Tartrate (Ambien) 5 mg PRN QHS PRN PO INSOMNIA Last administered on 04/05/19at 23:39; Start 04/03/19 at 22:30 Acetaminophen/ Hydrocodone Bitart (Lortab 10/325) 2 tab PRN Q4HRS PRN PO PAIN Last administered on 04/04/19at 13:22; Start 04/03/19 at 22:30; Stop 04/04/19 at 16:23; Status DC Albuterol Sulfate (Ventolin Neb Soln) 2.5 mg PRN Q4HRS PRN NEB SHORTNESS OF BREATH Last administered on 04/05/19at 08:26; Start 04/03/19 at 22:30 Duloxetine HCl (Cymbalta) 20 mg 1X ONCE PO ; Start 04/03/19 at 23:00; Stop 04/03/19 at 23:01; Status Cancel Quetiapine Fumarate (SEROquel) 50 mg 1X ONCE PO ; Start 04/03/19 at 23:00; Stop 04/03/19 at 23:01; Status Cancel Fluoxetine HCl (PROzac) 80 mg DAILY PO Last administered on 04/06/19at 09:01; Start 04/03/19 at 23:55 Clonazepam (KlonoPIN) 0.5 mg 1X ONCE PO Last administered on 04/04/19at 09:21; Start 04/04/19 at 09:00; Stop 04/04/19 at 09:03; Status DC Piperacillin Sod/ Tazobactam Sod 3.375 gm/Sodium Chloride 50 ml @ 100 mls/hr Q6HRS IV Last administered on 04/06/19at 05:02; Start 04/04/19 at 14:00 Piperacillin Sod/ Tazobactam Sod 3.375 gm/Sodium Chloride 50 ml @ 100 mls/hr 1X ONCE IV Last administered on 04/04/19at 10:19; Start 04/04/19 at 09:30; Stop 04/04/19 at 09:59; Status DC Albuterol Sulfate (Ventolin Neb Soln) 2.5 mg PRN Q6HRS PRN INH SHORTNESS OF BREATH; Start 04/04/19 at 12:45; Stop 04/04/19 at 12:50; Status DC Clonazepam (KlonoPIN) 1 mg DAILY PO Last administered on 04/06/19at 09:00; Start 04/05/19 at 09:00 Dicyclomine HCl (Bentyl) 10 mg QID PRN PO ABD PAIN Last administered on 04/04/19at 13:21; Start 04/04/19 at 12:45 Gabapentin (Neurontin) 600 mg TID PO Last administered on 04/06/19at 09:01; Start 04/04/19 at 14:00 Nicotine (Nicoderm Cq 21mg) 1 patch DAILY TD Last administered on 04/06/19at 09:00; Start 04/04/19 at 14:30 Oxycodone/ Acetaminophen (Percocet 7.5/ 325) 2 tab PRN Q6HRS PRN PO SEVERE PAIN Last administered on 04/06/19 09:02; Start 04/04/19 at 16:30 Albuterol/ Ipratropium (Duoneb) 3 ml RTQID NEB Last administered on 04/06/19 09:21; Start 04/05/19 at 12:00 Lactobacillus Rhamnosus (Culturelle) 1 cap BID PO Last administered on 04/06/19 09:01; Start 04/05/19 at 21:00 Furosemide (Lasix) 40 mg DAILY PO ; Start 04/06/19 at 09:00 Furosemide (Lasix) 40 mg 1X ONCE IVP Last administered on 04/05/19at 14:29; Start 04/05/19 at 14:15; Stop 04/05/19 at 14:20; Status DC Ondansetron HCl (Zofran Odt) 4 mg Q8HRS PRN PO NAUSEA; Start 04/05/19 at 14:45 Prednisone (Prednisone) 30 mg 1X ONCE PO Last administered on 04/05/19at 15:50; Start 04/05/19 at 15:45; Stop 04/05/19 at 15:46; Status DC Prednisone (Prednisone) 30 mg DAILY PO Last administered on 04/06/19at 09:01; Start 04/06/19 at 09:00 Active Scripts Active Zofran Odt (Ondansetron) 4 Mg Tab.rapdis 1 Tab SL Q8HRS Proair Hfa Inhaler (Albuterol Sulfate) 8.5 Gm Hfa.aer.ad 1 Puff INH PRN Q6HRS PRN Bradford 5-325 Tablet (Acetaminophen/Hydrocodone Bitart) 1 Each Tablet 1 Tab PO Q4- 6HRS Bradford 5-325 Tablet (Acetaminophen/Hydrocodone Bitart) 1 Each Tablet 1 Tab PO BID 3 Days Bradford 5-325 Tablet (Acetaminophen/Hydrocodone Bitart) 1 Each Tablet 1 Tab PO PRN Q6HRS PRN Amoxicillin 500 Mg Capsule 1 Cap PO QID Ibuprofen 800 Mg Tablet 800 Mg PO PRN Q6HRS PRN 10 Days Penicillin V Potassium 500 Mg Tablet 1 Tab PO QID Amoxicillin 875 Mg Tablet 1 Tab PO BID Bentyl (Dicyclomine Hcl) 10 Mg Capsule 10 Mg PO QID PRN Naproxen 250 Mg Tablet 250 Mg PO BID PRN Macrobid 100 Mg Capsule (Nitrofurantoin Monohyd/M-Cryst) 100 Mg Capsule 1 Cap PO BID Flagyl (Metronidazole) 500 Mg Tablet 1 Tab PO BID Tylenol With Codeine #3 Tablet (Acetaminophen/Codeine Phosphate) 1 Each Tablet 1 Tab PO PRN Q6HRS PRN Bactrim Ds Tablet (Sulfamethoxazole/Trimethoprim) 1 Each Tablet 1 Tab PO BID Reported Klonopin (Clonazepam) 1 Mg Tablet 1 Mg PO DAILY Neurontin (Gabapentin) 600 Mg Tablet 300 Mg PO BID Effexor Xr (Venlafaxine Hcl) 150 Mg Cap.er.24h 300 Mg PO DAILY Hydrocodone-Apap 10-300 (Hydrocodone Bit/Acetaminophen) 1 Each Tablet 1 Tab PO PRN Q6HRS PRN Oxycodone-Acetaminophen 10-325 (Oxycodone Hcl/Acetaminophen) 1 Each Tablet 1 Each PO Effexor Xr (Venlafaxine Hcl) 37.5 Mg Cap.er.24h 37.5 Mg PO Mirena (Levonorgestrel) 1 Each Iud 1 Each IY Lorazepam 0.5 Mg Tablet 0.5 Mg PO Vitals/I & O Vital Sign - Last 24 Hours 04/05/19 04/05/19 04/05/19 04/05/19 10:52 11:29 12:51 14:57 Temp 97.8 98.1 97.8 98.1 Pulse 65 79 Resp 18 18 18 B/P (MAP) 139/76 (97) 93/50 (64) Pulse Ox 97 97 95 O2 Delivery Nasal Cannula Nasal Cannula O2 Flow Rate 4.0 4.0 04/05/19 04/05/19 04/05/19 04/05/19 15:43 19:21 19:25 19:45 Temp 97.7 97.7 Pulse 75 Resp 20 20 B/P (MAP) 114/61 (78) Pulse Ox 95 93 O2 Delivery Nasal Cannula Nasal Cannula Nasal Cannula Nasal Cannula O2 Flow Rate 4.0 4.0 4.0 4.0 04/05/19 04/05/19 04/06/19 04/06/19 19:58 22:55 01:10 02:56 Temp 97.7 97.7 Pulse 73 Resp 20 B/P (MAP) 106/55 (72) Pulse Ox 93 95 95 O2 Delivery Nasal Cannula Nasal Cannula BiPAP/CPAP Nasal Cannula O2 Flow Rate 4.0 4.0 4.0 04/06/19 04/06/19 04/06/19 04/06/19 03:30 03:56 07:25 08:00 Temp 97.8 98.3 97.8 98.3 Pulse 79 62 Resp 20 18 B/P (MAP) 105/52 (69) 86/39 (55) Pulse Ox 92 95 92 O2 Delivery Nasal Cannula Nasal Cannula Nasal Cannula Nasal Cannula O2 Flow Rate 4.0 4.0 4.0 4.0 04/06/19 04/06/19 09:02 09:23 Resp 18 Pulse Ox 98 O2 Delivery Nasal Cannula Nasal Cannula O2 Flow Rate 4.0 4.0 Intake and Output 04/05/19 04/05/19 04/06/19 15:00 23:00 07:00 Intake Total 500 ml 1140 ml Output Total 3000 ml 2500 ml Balance -2500 ml -1360 ml CHRISTIANNE ALANIZ MD April 06, 2019 10:22
[2019-04-06 11:09] VITALS: BP 114/65
[2019-04-06] MEDS: AMOXICILLIN/K CLAV 875/125MG TABLET. PO SCH ×2 (12:35→20:52)
--- NOTE | 2019-04-06 12:48 | NUR ---
SS following up with discharge planning. Pt currently requiring oxygen. No discharge needs noted at this time. SS will continue to follow for discharge planning.
--- NOTE | 2019-04-06 12:54 | PDOC ---
CARDIO Progress Notes Date and Time Date of Service 04/06/2019 Time of Evaluation 1255 Subjective Subjective: No Chest Pain, No shortness of breath, No Palpitations Vitals Vitals Vital Signs Date Time Temp Pulse Resp B/P (MAP) Pulse Ox O2 Delivery O2 Flow Rate FiO2 04/06/19 12:05 96 Nasal Cannula 3.0 04/06/19 11:09 97.8 65 18 114/65 (81) 97.8 Weight Weight [ ] Input and Output Intake and Output Intake and Output 04/06/19 07:00 Intake Total 1640 ml Output Total 5500 ml Balance -3860 ml Intake Oral 1540 ml IV Total 100 ml Output Urine Total 5500 ml # Bowel Movements 1 Laboratory Labs Laboratory Tests Test 04/06/19 05:25 White Blood Count 11.2 x10^3/uL (4.0-11.0) Red Blood Count 3.53 x10^6/uL (3.50-5.40) Hemoglobin 9.3 g/dL (12.0-15.5) Hematocrit 28.0 % (36.0-47.0) Mean Corpuscular Volume 79 fL (79-100) Mean Corpuscular Hemoglobin 26 pg (25-35) Mean Corpuscular Hemoglobin Concent 33 g/dL (31-37) Red Cell Distribution Width 15.5 % (11.5-14.5) Platelet Count 408 x10^3/uL (140-400) Neutrophils (%) (Auto) 82 % (31-73) Lymphocytes (%) (Auto) 13 % (24-48) Monocytes (%) (Auto) 5 % (0-9) Eosinophils (%) (Auto) 0 % (0-3) Basophils (%) (Auto) 0 % (0-3) Neutrophils # (Auto) 9.2 x10^3uL (1.8-7.7) Lymphocytes # (Auto) 1.5 x10^3/uL (1.0-4.8) Monocytes # (Auto) 0.5 x10^3/uL (0.0-1.1) Eosinophils # (Auto) 0.0 x10^3/uL (0.0-0.7) Basophils # (Auto) 0.0 x10^3/uL (0.0-0.2) Sodium Level 142 mmol/L (136-145) Potassium Level 4.2 mmol/L (3.5-5.1) Chloride Level 103 mmol/L (98-107) Carbon Dioxide Level 29 mmol/L (21-32) Anion Gap 10 (6-14) Blood Urea Nitrogen 17 mg/dL (7-20) Creatinine 1.0 mg/dL (0.6-1.0) Estimated GFR (Cockcroft-Gault) 62.1 BUN/Creatinine Ratio 17 (6-20) Glucose Level 139 mg/dL (70-99) Calcium Level 8.1 mg/dL (8.5-10.1) Phosphorus Level 4.1 mg/dL (2.6-4.7) Total Bilirubin 0.2 mg/dL (0.2-1.0) Aspartate Amino Transf (AST/SGOT) 17 U/L (15-37) Alanine Aminotransferase (ALT/SGPT) 27 U/L (14-59) Alkaline Phosphatase 135 U/L (46-116) Total Protein 6.8 g/dL (6.4-8.2) Albumin 2.5 g/dL (3.4-5.0) Albumin/Globulin Ratio 0.6 (1.0-1.7) Microbiology Micro Microbiology 04/03/19 Blood Culture - Preliminary, Resulted NO GROWTH AFTER 2 DAYS 04/04/19 Urine Culture - Final, Complete 04/04/19 Urine Culture Result 1 (MARIXA) - Final, Complete Physical Exam HEENT: Neck Supple W Full Motion Chest: Symmetric LUNGS: Other (diminished bases) Heart: S1S2, RRR (SR) Abdomen: Soft N/T Extremities: No Calf Tenderness, Other (1+ bilateral LE pitting edema) Neurology: alert, oriented, follow commands Assessment Assessment 1. Acute respiratory failure secondary multifactorial due to CHF and possible pneumonia, opioid use and PAUL 2. Acute on chronic diastolic heart failure: Possibly induced by pulmonary issues including PAUL/obesity. compensated 3. ; s/p 03/08 with preeclampsia 4. Steroid induced hyperglycemia 5. Obesity 6. Suspecting PAUL 7. Hypotensive this AM: due to diurese UOP overnight approx 5.5 L Recommendations Hold lasix She does use formula and not breast feeding. Smoking cessation Wt loss. Will need PAUL outpt w/u. Antibiotics per PCP. Will consider for treadmill EKG stress test as an outpt. Curb opioid use. Na restriction. Follow up in [address] Marcelo on May 17 2:15PM MAGALI BRISCOE APRN April 06, 2019 12:54
[2019-04-06 15:32] VITALS: BP 106/52
[2019-04-06 19:25] VITALS: BP 109/54
[2019-04-06] MEDS: SENNOSIDES/DOCUSATE 8.6/50MG TABLET. PO PRN (20:56)
[2019-04-06 23:59] VITALS: BP 101/54
[2019-04-07] MEDS: oxyCODONE/APAP 7.5/325 1 TAB TABLET PO PRN ×2 (03:41→09:44)
[2019-04-07 03:50] VITALS: BP 120/57
[2019-04-07] MEDS: clonazePAM 1 MG TABLET PO SCH (06:10)
[2019-04-07 07:36] VITALS: BP 111/58
[2019-04-07] MEDS: IPRATRPIUM/ALBUTEROL 0.5/2.5MG 3 ML NEBU. NEB SCH ×2 (08:00→10:40)
--- NOTE | 2019-04-07 08:21 | PDOC ---
Infectious Disease Note Subjective Subjective pt is awake, feeling much better o2 down to 1 lit ROS ROS no n/v/d/ Vital Sign Vital Signs Vital Signs Date Time Temp Pulse Resp B/P (MAP) Pulse Ox O2 Delivery O2 Flow Rate FiO2 04/07/19 08:02 99 Nasal Cannula 2.0 04/07/19 07:36 98.1 76 20 111/58 (75) 98.1 Physical Exam PHYSICAL EXAM GENERAL: On examination, alert oriented female, not in any distress. VITAL SIGNS: Vitals are stable, afebrile completely since she is admitted. HEENT: NAD. NECK: Supple, no JVP, no lymphadenopathy. LUNGS: Crackles at the bases present. HEART: S1, S2 regular. No gallop or murmur. ABDOMEN: Soft, nontender. No organomegaly. EXTREMITIES: She does have mild pitting edema. There is no redness. There is no cyanosis. NEUROLOGIC: The patient is neurologically alert, awake and appropriate. No focal neurologic deficit. Labs Micro Microbiology 04/03/19 Blood Culture - Preliminary, Resulted NO GROWTH AFTER 1 DAY Objective Assessment Fever at home CHF h/o Preeclampsia Post ? Pneumonia Hypoxia Plan Plan of Care augmentin x 5 days ok to d/c pt/ot LEO CROWELL MD April 07, 2019 08:21
[2019-04-07] MEDS: GABAPENTIN 300 MG CAPSULE. PO SCH (09:01)
[2019-04-07] MEDS: NICOTINE 21MG PATCH. TD SCH (09:01)
[2019-04-07] MEDS: SENNOSIDES/DOCUSATE 8.6/50MG TABLET. PO PRN (09:02)
[2019-04-07] MEDS: LACTOBACILLUS RHAMNOSUS GG 1 CAPSULE. PO SCH (09:02)
[2019-04-07] MEDS: AMOXICILLIN/K CLAV 875/125MG TABLET. PO SCH (09:02)
[2019-04-07] MEDS: predniSONE 10 MG TABLET PO SCH (09:02)
[2019-04-07] MEDS: FLUoxetine HCL 20 MG CAPSULE PO SCH (09:02)
[2019-04-07] MEDS: DICYCLOMINE HCL 10 MG CAPSULE PO PRN (09:02)
[2019-04-07] MEDS: FUROSEMIDE 40 MG TABLET. PO SCH (09:02)
--- NOTE | 2019-04-07 10:11 | PDOC ---
PULMONARY PROGRESS NOTES Subjective PT LESS SOA Vitals Vital Signs Date Time Temp Pulse Resp B/P (MAP) Pulse Ox O2 Delivery O2 Flow Rate FiO2 04/07/19 09:44 Nasal Cannula 1.0 04/07/19 08:02 99 04/07/19 07:36 98.1 76 20 111/58 (75) 98.1 ROS: No Nausea, No Chest Pain, No Abdominal Pain, No Increase Cough General: Alert Lungs: Crackles Cardiovascular: S1, S2 Abdomen: Soft Neuro Exam: Alert Extremities: No Edema Skin: Warm Labs Laboratory Tests Test 04/06/19 05:25 White Blood Count 11.2 x10^3/uL (4.0-11.0) Red Blood Count 3.53 x10^6/uL (3.50-5.40) Hemoglobin 9.3 g/dL (12.0-15.5) Hematocrit 28.0 % (36.0-47.0) Mean Corpuscular Volume 79 fL (79-100) Mean Corpuscular Hemoglobin 26 pg (25-35) Mean Corpuscular Hemoglobin Concent 33 g/dL (31-37) Red Cell Distribution Width 15.5 % (11.5-14.5) Platelet Count 408 x10^3/uL (140-400) Neutrophils (%) (Auto) 82 % (31-73) Lymphocytes (%) (Auto) 13 % (24-48) Monocytes (%) (Auto) 5 % (0-9) Eosinophils (%) (Auto) 0 % (0-3) Basophils (%) (Auto) 0 % (0-3) Neutrophils # (Auto) 9.2 x10^3uL (1.8-7.7) Lymphocytes # (Auto) 1.5 x10^3/uL (1.0-4.8) Monocytes # (Auto) 0.5 x10^3/uL (0.0-1.1) Eosinophils # (Auto) 0.0 x10^3/uL (0.0-0.7) Basophils # (Auto) 0.0 x10^3/uL (0.0-0.2) Sodium Level 142 mmol/L (136-145) Potassium Level 4.2 mmol/L (3.5-5.1) Chloride Level 103 mmol/L (98-107) Carbon Dioxide Level 29 mmol/L (21-32) Anion Gap 10 (6-14) Blood Urea Nitrogen 17 mg/dL (7-20) Creatinine 1.0 mg/dL (0.6-1.0) Estimated GFR (Cockcroft-Gault) 62.1 BUN/Creatinine Ratio 17 (6-20) Glucose Level 139 mg/dL (70-99) Calcium Level 8.1 mg/dL (8.5-10.1) Phosphorus Level 4.1 mg/dL (2.6-4.7) Total Bilirubin 0.2 mg/dL (0.2-1.0) Aspartate Amino Transf (AST/SGOT) 17 U/L (15-37) Alanine Aminotransferase (ALT/SGPT) 27 U/L (14-59) Alkaline Phosphatase 135 U/L (46-116) Total Protein 6.8 g/dL (6.4-8.2) Albumin 2.5 g/dL (3.4-5.0) Albumin/Globulin Ratio 0.6 (1.0-1.7) Medications Active Scripts Medications Dose Route/Sig Max Daily Dose Days Date Category Zofran Odt (Ondansetron) 4 Mg Tab.rapdis 1 Tab SL Q8HRS 08/29/18 Rx Proair Hfa Inhaler (Albuterol Sulfate) 8.5 Gm Hfa.aer.ad 1 Puff INH PRN Q6HRS PRN 08/01/18 Rx [place] 5-325 Tablet (Acetaminophen/Hydrocodone Bitart) 1 Each Tablet 1 Tab PO Q4-6HRS 04/21/18 Rx [place] 5-325 Tablet (Acetaminophen/Hydrocodone Bitart) 1 Each Tablet 1 Tab PO BID 3 04/18/18 Rx [place] 5-325 Tablet (Acetaminophen/Hydrocodone Bitart) 1 Each Tablet 1 Tab PO PRN Q6HRS PRN 08/02/17 Rx Amoxicillin 500 Mg Capsule 1 Cap PO QID 08/02/17 Rx Ibuprofen 800 Mg Tablet 800 Mg PO PRN Q6HRS PRN 10 05/19/17 Rx Penicillin V Potassium 500 Mg Tablet 1 Tab PO QID 05/19/17 Rx Amoxicillin 875 Mg Tablet 1 Tab PO BID 11/27/16 Rx Bentyl (Dicyclomine Hcl) 10 Mg Capsule 10 Mg PO QID PRN 11/23/16 Rx Naproxen 250 Mg Tablet 250 Mg PO BID PRN 11/23/16 Rx Macrobid 100 Mg Capsule (Nitrofurantoin Monohyd/M-Cryst) 100 Mg Capsule 1 Cap PO BID 09/28/16 Rx Flagyl (Metronidazole) 500 Mg Tablet 1 Tab PO BID 09/28/16 Rx Tylenol With Codeine #3 Tablet (Acetaminophen/Codeine Phosphate) 1 Each Tablet 1 Tab PO PRN Q6HRS PRN 07/31/16 Rx Bactrim Ds Tablet (Sulfamethoxazole/Trimethoprim) 1 Each Tablet 1 Tab PO BID 07/31/16 Rx Klonopin (Clonazepam) 1 Mg Tablet 1 Mg PO DAILY 06/09/14 Reported Neurontin (Gabapentin) 600 Mg Tablet 300 Mg PO BID 06/09/14 Reported Effexor Xr (Venlafaxine Hcl) 150 Mg Cap.er.24h 300 Mg PO DAILY 06/09/14 Reported Hydrocodone-Apap 10-300 (Hydrocodone Bit/Acetaminophen) 1 Each Tablet 1 Tab PO PRN Q6HRS PRN 06/09/14 Reported Oxycodone-Acetaminophen 10-325 (Oxycodone Hcl/Acetaminophen) 1 Each Tablet 1 Each PO 06/09/14 Reported Effexor Xr (Venlafaxine Hcl) 37.5 Mg Cap.er.24h 37.5 Mg PO 11/08/13 Reported Mirena (Levonorgestrel) 1 Each Iud 1 Each IY 11/08/13 Reported Lorazepam 0.5 Mg Tablet 0.5 Mg PO 11/08/13 Reported Impression . IMPRESSION: 1. Acute hypoxemic respiratory failure. Suspect mostly secondary to acute pulmonary edema. 2. Bilateral pulmonary infiltrates seen on CT chest and x-ray, suspect edema versus questionable infection, although the patient's clinical presentation is not compatible with infection. 3. Status post emergent for preeclampsia. 4. Abnormal x-ray, 5. AECOPD echo The left ventricle is normal size. The left ventricular systolic function is normal and the ejection fraction is within normal range. The Ejection Fraction is 6o-65%. There is no significant aortic valvular stenosis. Doppler and Color Flow revealed no significant aortic regurgitation. Doppler and Color-flow revealed mild mitral regurgitation. Doppler and Color Flow revealed trace tricuspid regurgitation. The PA pressure was estimated at 42 mmHg. Signed by : Ag Marcelo MD Electronically Approved : 04/04/2019 13:13:21 Plan . DID NOT REQUIRE 02 WITH EXERTION RX FOR SPIRIVA AND PROAIR FOLLOW UP IN OFFICE INSURANCE PRECLUDES SLEEP STUDY GERARD LÓPEZ MD April 07, 2019 10:11
[2019-04-07] MEDS ORDERED: AMOX1TAB11 PO (10:26)
[2019-04-07] MEDS ORDERED: PRED-220 PO (10:26)
[2019-04-07 11:29] VITALS: BP 104/51
[2019-04-07] MEDS ORDERED: VENL150C PO (11:29)
[2019-04-07] MEDS ORDERED: GABA600T PO (11:29)
[2019-04-07] MEDS ORDERED: oxyCODONE/APAP 7.5/325 1 TAB TABLET PO ONE (12:45)
--- NOTE | 2019-04-07 13:45 | NUR ---
Discharge Note: INÉS ALMONTE [address] Discharge instructions and discharge home medications reviewed with Patient and a copy given. All questions have been answered and understanding verbalized. The following instructions and handouts were given: CHF, smoking cessation, edema Discontinued lines and drains: Peripheral IV intact. Patient discharged to Home or Self Care with Spouse via Ambulated
--- NOTE | 2019-04-07 16:32 | PDOC3 ---
Discharge Summary Visit Information Date of Admission: April 03, 2019 Date of Discharge: April 07, 2019 Final Diagnosis Problems Medical Problems: (1) Anemia Status: Acute (2) CHF (congestive heart failure) Status: Acute (3) HCAP (healthcare-associated pneumonia) Status: Acute (4) Hypoxia Status: Acute (5) cardiomyopathy Status: Acute (6) Tobacco abuse Status: Acute Brief Hospital Course Allergies Allergies Coded Allergies Type Severity Reaction Last Updated Verified No Known Drug Allergies 11/08/13 No Vital Signs Vital Signs Date Time Temp Pulse Resp B/P (MAP) Pulse Ox O2 Delivery O2 Flow Rate FiO2 04/07/19 13:37 Room Air 04/07/19 11:29 97.7 68 18 104/51 (68) 93 3.0 97.7 Lab Results Laboratory Tests Test 04/06/19 05:25 White Blood Count 11.2 x10^3/uL (4.0-11.0) Red Blood Count 3.53 x10^6/uL (3.50-5.40) Hemoglobin 9.3 g/dL (12.0-15.5) Hematocrit 28.0 % (36.0-47.0) Mean Corpuscular Volume 79 fL (79-100) Mean Corpuscular Hemoglobin 26 pg (25-35) Mean Corpuscular Hemoglobin Concent 33 g/dL (31-37) Red Cell Distribution Width 15.5 % (11.5-14.5) Platelet Count 408 x10^3/uL (140-400) Neutrophils (%) (Auto) 82 % (31-73) Lymphocytes (%) (Auto) 13 % (24-48) Monocytes (%) (Auto) 5 % (0-9) Eosinophils (%) (Auto) 0 % (0-3) Basophils (%) (Auto) 0 % (0-3) Neutrophils # (Auto) 9.2 x10^3uL (1.8-7.7) Lymphocytes # (Auto) 1.5 x10^3/uL (1.0-4.8) Monocytes # (Auto) 0.5 x10^3/uL (0.0-1.1) Eosinophils # (Auto) 0.0 x10^3/uL (0.0-0.7) Basophils # (Auto) 0.0 x10^3/uL (0.0-0.2) Sodium Level 142 mmol/L (136-145) Potassium Level 4.2 mmol/L (3.5-5.1) Chloride Level 103 mmol/L (98-107) Carbon Dioxide Level 29 mmol/L (21-32) Anion Gap 10 (6-14) Blood Urea Nitrogen 17 mg/dL (7-20) Creatinine 1.0 mg/dL (0.6-1.0) Estimated GFR (Cockcroft-Gault) 62.1 BUN/Creatinine Ratio 17 (6-20) Glucose Level 139 mg/dL (70-99) Calcium Level 8.1 mg/dL (8.5-10.1) Phosphorus Level 4.1 mg/dL (2.6-4.7) Total Bilirubin 0.2 mg/dL (0.2-1.0) Aspartate Amino Transf (AST/SGOT) 17 U/L (15-37) Alanine Aminotransferase (ALT/SGPT) 27 U/L (14-59) Alkaline Phosphatase 135 U/L (46-116) Total Protein 6.8 g/dL (6.4-8.2) Albumin 2.5 g/dL (3.4-5.0) Albumin/Globulin Ratio 0.6 (1.0-1.7) Brief Hospital Course 38 year old female who presents with complaining of shortness of breath. Patient had related to preeclampsia on March 08 with edema of bilateral lower extremity that did not get better after her . Patient states she was seen at [facility] 5 days ago because of edema bilateral lower extremity and had extensive evaluation and CT of her chest and diagnosed with pneumonia and treated with 5 days of Levaquin and took her last pill of Levaquin 04/03 complaining of constant shortness of breath for the last 3 days getting worse with activity. Patient complaining of nonproductive cough and a fever up to 102.8 for the last 3 days with generalized weakness. Patient states she smokes half a pack of cigarettes a day. Patient had O2 sat of 82 at arrival to ER, ADMITTED WITH ACUTE HYPOXIC RESP FAILURE patient treated for Acute Hypoxic Resp failure secondary to Acute CHF, low clinical suspicion for PNA but placed on IV abx. patient was diuresed with IV lasix and improved. suspect component of untreated PAUL. pulm and cards followed patient. patient responded to IV zosyn. switched to augmentin at dc. CTA without evidence of PE but did show Diffuse groundglass airspace opacities identified in the bilateral perihilar region likely congestive changes or diffuse infiltrates. patient was weaned off 02. plan for outpatient sleep study if insurance approves. hold lasix at discharge. outpatient follow up with cards and pulm. no pain meds given at dc Discharge Information Condition at Discharge: Stable Follow Up: Weeks (follow up with pulm and cards as outpatient.) Disposition/Orders: D/C to Home Scheduled Amoxicillin/Potassium Clav (Amox Tr-K Clv 875-125 Mg Tab) 1 Each Tablet, 1 TAB PO BID for pna for 5 Days, #10 Prescribed by: CHRISTIANNE ALANIZ MD on 04/07/19 1026 Clonazepam (Klonopin) 1 Mg Tablet, 1 MG PO DAILY, (Reported) Entered as Reported by: BRAYAN LOPEZ on 06/09/142318 Last Action: Continued on 04/04/19 1247 by TODD BROWN MD Gabapentin (Neurontin) 600 Mg Tablet, 300 MG PO BID for PAIN, (Reported) Entered as Reported by: BRAYAN LOPEZ on 06/09/142318 Last Action: Edited on 04/04/19 1330 by AMARIS PORRAS Gabapentin (Neurontin) 600 Mg Tablet, 600 MG PO DAILY for NEUROGENIC PAIN for 14 Days, #14 Prescribed by: CHRISTIANNE ALANIZ MD on 04/07/19 1129 Ondansetron (Zofran Odt) 4 Mg Tab.rapdis, 1 TAB SL Q8HRS, #15 Prescribed by: Briana Lyons APRN on 08/29/182202 Last Action: Continued on 04/03/19 1930 by GISSELL PARISH MD Prednisone (Prednisone ) 10 Mg Tablet, 30 MG PO DAILY for wheezing for 5 Days, #15 Prescribed by: CHRISTIANNE ALANIZ MD on 04/07/19 1026 Venlafaxine Hcl (Effexor Xr) 150 Mg Cap.er.24h, 300 MG PO DAILY, (Reported) Entered as Reported by: BRAYAN LOPEZ on 06/09/142318 Venlafaxine Hcl (Effexor Xr) 150 Mg Cap.er.24h, 1 CAP PO DAILY for depression for 14 Days, #14 Ref 1 Prescribed by: CHRISTIANNE ALANIZ MD on 04/07/19 1129 Scheduled PRN Albuterol Sulfate (Proair Hfa Inhaler) 8.5 Gm Hfa.aer.ad, 1 PUFF INH PRN Q6HRS PRN for SHORTNESS OF BREATH, #1 Ref 0 Prescribed by: YASMANI ALAS MD on 08/01/18 1553 Last Action: Continued on 04/04/191246 by TODD BROWN MD Dicyclomine Hcl (Bentyl) 10 Mg Capsule, 10 MG PO QID PRN for PAIN, #12 Prescribed by: LYN CARVAJAL D.O. on 11/23/16 164 Last Action: Continued on 04/04/191246 by TODD BROWN MD Hydrocodone Bit/Acetaminophen (Hydrocodone-Apap 10-300) 1 Each Tablet, 1 TAB PO PRN Q6HRS PRN for PAIN, Ref 0 (Reported) Entered as Reported by: BRAYAN LOPEZ on 06/09/14 2319 Ibuprofen (Ibuprofen) 800 Mg Tablet, 800 MG PO PRN Q6HRS PRN for INFLAMMATION for 10 Days, #40 Prescribed by: CHARLI MTZ D.O. on 05/19/17 0035 Last Action: HELD on 04/04/191246 by TODD BROWN MD Naproxen (Naproxen) 250 Mg Tablet, 250 MG PO BID PRN for PAIN, #10 Prescribed by: LYN CARVAJAL D.O. on 11/23/16 164 Last Action: HELD on 04/04/191246 by TODD BROWN MD Miscellaneous Medications Lorazepam (Lorazepam) 0.5 Mg Tablet, 0.5 MG PO, (Reported) Entered as Reported by: LEXIS MURRIETA on 11/08/13 1406 Last Action: HELD on 04/04/191246 by TODD BROWN MD Discontinued Medications Acetaminophen With Codeine (Tylenol With Codeine #3 Tablet) 1 Each Tablet, 1 TAB PO PRN Q6HRS PRN for PAIN, #20 Prescribed by: LAURA RIOS on 07/31/16 202 Last Action: HELD on 04/04/191246 by TODD BROWN MD Amoxicillin (Amoxicillin) 875 Mg Tablet, 1 TAB PO BID, #20 Prescribed by: Briana Lyons APRN on 11/27/16 1500 Amoxicillin (Amoxicillin) 500 Mg Capsule, 1 CAP PO QID, #40 Prescribed by: DOMINGO SHAFFER APRN on 08/02/179 Hydrocodone/Apap 5-325 ([place] 5-325 Tablet) 1 Each Tablet, 1 TAB PO PRN Q6HRS PRN for PAIN, #6 Ref 0 Prescribed by: DOMINGO SHAFFER APRN on 08/02/172158 Last Action: HELD on 04/04/19 1247 by TODD BROWN MD Hydrocodone/Apap 5-325 ([place] 5-325 Tablet) 1 Each Tablet, 1 TAB PO BID for 3 Days, #6 Prescribed by: JOSE G GAMINO PA-C on 04/18/18 1628 Last Action: HELD on 04/04/19 1247 by TODD BROWN MD Hydrocodone/Apap 5-325 ([place] 5-325 Tablet) 1 Each Tablet, 1 TAB PO Q4-6HRS, #10 Prescribed by: Briana Lyons APRN on 04/21/18 1357 Last Action: HELD on 04/04/19 1247 by TODD BROWN MD Metronidazole (Flagyl) 500 Mg Tablet, 1 TAB PO BID, #14 Prescribed by: DOMINGO SHAFFER APRN on 09/28/16 1434 Nitrofurantoin Monohyd/M-Cryst (Macrobid 100 Mg Capsule) 100 Mg Capsule, 1 CAP PO BID, #14 Prescribed by: DOMINGO SHAFFER APRN on 09/28/16 1434 Oxycodone Hcl/Acetaminophen (Oxycodone-Acetaminophen 10-325) 1 Each Tablet, 1 EACH PO for PAIN, Ref 0 (Reported) Entered as Reported by: BRAYAN LOPEZ on 06/09/14 2319 Last Action: HELD on 04/04/191246 by TODD BROWN MD Penicillin V Potassium (Penicillin V Potassium) 500 Mg Tablet, 1 TAB PO QID, #40 Prescribed by: CHARLI MTZ D.O. on 05/19/17 0035 Sulfamethoxazole/Trimethoprim (Bactrim Ds Tablet) 1 Each Tablet, 1 TAB PO BID, #14 Prescribed by: LAURA RIOS on 07/31/162020 Last Action: HELD on 04/04/19 1247 by TODD BROWN MD Venlafaxine Hcl (Effexor Xr) 37.5 Mg Cap.er.24h, 37.5 MG PO, (Reported) Entered as Reported by: LEXIS MURRIETA on 11/08/13 1407 Durable Medical Equipment Levonorgestrel (Mirena) 1 Each Iud, 1 EACH IY, (Reported), (DME) Entered as Reported by: LEXIS MURRIETA on 11/08/13 1406 CHRISTIANNE ALANIZ MD April 07, 2019 16:32
== END 2019-04-07 13:30 | disposition home or self-care (01) | DRG 776 ==
LOC: ER 15:49 → 2 SOUTH 17:08
PROVIDERS: ADMIT Internal Medicine; ATTEND Internal Medicine
PROC: 5A09357 Assistance with Respiratory Ventilation, Less than 24 Consecutive Hours, Continuous Positive Airway Pressure (ICD-10-PCS; principal; 2019-04-04)
PROC: 5A09357 Assistance with Respiratory Ventilation, Less than 24 Consecutive Hours, Continuous Positive Airway Pressure (ICD-10-PCS; 2019-04-05)
DX: O85 Puerperal sepsis (principal); I50.33 Acute on chronic diastolic (congestive) heart failure; J18.9 Pneumonia, unspecified organism; J96.01 Acute respiratory failure with hypoxia; J44.0 Chronic obstructive pulmonary disease with (acute) lower respiratory infection; J44.1 Chronic obstructive pulmonary disease with (acute) exacerbation; O99.43 Diseases of the circulatory system complicating the puerperium; O24.13 Pre-existing type 2 diabetes mellitus, in the puerperium; E11.65 Type 2 diabetes mellitus with hyperglycemia; I11.0 Hypertensive heart disease with heart failure; O99.53 Diseases of the respiratory system complicating the puerperium; O90.89 Other complications of the puerperium, not elsewhere classified; N83.209 Unspecified ovarian cyst, unspecified side; O99.345 Other mental disorders complicating the puerperium; F53.0 Postpartum depression; O90.81 Anemia of the puerperium; F43.10 Post-traumatic stress disorder, unspecified; Y95 Nosocomial condition; I27.20 Pulmonary hypertension, unspecified; F17.210 Nicotine dependence, cigarettes, uncomplicated; F41.9 Anxiety disorder, unspecified; E66.9 Obesity, unspecified; T38.0X5A Adverse effect of glucocorticoids and synthetic analogues, initial encounter; Y92.89 Other specified places as the place of occurrence of the external cause; Z98.891 History of uterine scar from previous surgery; Z83.3 Family history of diabetes mellitus; Z82.49 Family history of ischemic heart disease and other diseases of the circulatory system
CPT/HCPCS: 36415; 36600; 71045; 71275; 80053; 80061; 80069; 81001; 82550; 82805; 83036; 83735; 83880; 84100; 84443; 84484; 85025; 85379; 87040; 87086; 87804; 93005; 93306; 94618; 94640; 94660; 94760; 96365; 96366; 96375; J1940; J2543; J2930; J3370; J7030; J7040; J7512; J7613; J7620; Q0162; Q9967; 99291-25

== ENCOUNTER 2019-04-13 16:18 | Emergency (ER) | payer OTHER ==
[~2019-04-13] VITALS: Ht 167.6 cm; Wt 100.2 kg
[~2019-04-13 16:18] MED LIST changes: +AMOX1TAB11 PO; -FLUoxetine HCL 20 MG CAPSULE PO SCH; +PRED-220 PO
[2019-04-13 17:06] LABS: BASO # 0.2 x10^3/uL (0.0-0.2); BASO % 1 % (0-3); EOS # 0.1 x10^3/uL (0.0-0.7); EOS % 1 % (0-3); HEMATOCRIT 33.2 % (36.0-47.0); HEMOGLOBIN 10.7 g/dL (12.0-15.5); LYMPH % 30 % (24-48); MEAN CORPUSCULAR HEMOGLOBIN 26 pg (25-35); MEAN CORPUSCULAR HGB CONC 32 g/dL (31-37); MEAN CORPUSCULAR VOLUME 80 fL (79-100); MONO # 0.5 x10^3/uL (0.0-1.1); MONO % 4 % (0-9); NEUT # 8.7 x10^3uL (1.8-7.7); NEUT % 64 % (31-73); PLATELET COUNT 569 x10^3/uL (140-400); RED BLOOD COUNT 4.15 x10^6/uL (3.50-5.40); RED CELL DISTRIBUTION WIDTH 16.3 % (11.5-14.5); WHITE BLOOD COUNT 13.5 x10^3/uL (4.0-11.0)
--- NOTE | 2019-04-13 17:10 | PHYS DOC ---
Past Medical History Past Medical History: Anxiety, Asthma, CHF, Ovarian Cyst, Other Additional Past Medical Histor: BORDERLINE DM2, ulcers, PTSD, PRE-ECLAMPSIA 02/2019 Past Surgical History: , Other Additional Past Surgical Histo: right knee injection Alcohol Use: None Drug Use: None Adult General Chief Complaint Chief Complaint: WEAKNESS/GENERALIZED HPI HPI Patient is a 38-year-old female, about 4 weeks , was recently admitted here for newly diagnosed cardiac myopathy, who presents to the emergency department for evaluation. She states that for the past 4-5 days, she has had paresthesias in both of her hands, primarily limited to the right middle finger, and she has also had pain on the palmar surface of her right hand. She also reports paresthesias on her left hand, but no pain there. She states her shortness of breath has improved, although she still gets short of breath with exertion. She is not currently short of breath. She reports mild improvement in her edema. She has not had any fevers or chills, chest pain, vision changes, or any other numbness, or muscle weakness. She does report generalized weakness and fatigue, however. There are no alleviating or exacerbating factors to her symptoms. Review of Systems Review of Systems Constitutional: Denies fever or chills [] Eyes: Denies change in visual acuity, redness, or eye pain [] HENT: Denies nasal congestion or sore throat [] Respiratory: Denies cough or current shortness of breath [] Cardiovascular: No additional information not addressed in HPI [] GI: Denies abdominal pain, nausea, vomiting, bloody stools or diarrhea [] : Denies dysuria or hematuria [] Musculoskeletal: Denies back pain or joint pain [] Integument: Denies rash or skin lesions [] Neurologic: Denies headache, focal weakness or sensory changes, except as noted in the history of present illness. [] Endocrine: Denies polyuria or polydipsia [] All other systems were reviewed and found to be within normal limits, except as documented in this note. Current Medications Current Medications Current Medications Medications (Trade) Dose Ordered Sig/Rj Start Time Stop Time Status Last Admin Dose Admin Acetaminophen (Tylenol) 650 mg 1X ONCE 04/13/19 18:00 04/13/19 18:01 DC Acetaminophen/ Codeine Phosphate (Tylenol #3) 1 tab 1X ONCE 04/13/19 18:00 04/13/19 18:01 DC 04/13/19 17:58 1 TAB Allergies Allergies Allergies Coded Allergies Type Severity Reaction Last Updated Verified No Known Drug Allergies 11/08/13 No Physical Exam Physical Exam PHYSICAL EXAM: CONSTITUTIONAL: Well developed, well nourished HEAD: normocephalic, atraumatic EENT: PERRL, EOMI. Conjunctivae normal color, sclerae non-icteric; moist mucous membranes. NECK: Supple, non-tender; no meningismus. LUNGS: Lungs CTA, breathing even and unlabored. Normal air movement. HEART: Regular rate and rhythm, no murmur CHEST: No deformity; non-tender ABDOMEN: The abdomen is soft, and non-tender, no masses or bruits. EXTREM: Normal ROM; no deformity, no calf tenderness. Normal pulses palpable in all extremities. There is trace bilateral pedal edema. There is tenderness to palpation of the palmar surface of the right hand, over the middle of the hand, over the third metacarpal, but there is no skin abnormality, or deformity noted. SKIN: No rash; no diaphoresis NEURO: Alert; normal speech and cognition; CN's grossly intact; strength grossly intact without focal deficit. There is subjective decreased sensation in the right middle finger, sensation in the other digits is intact. Sensation is intact in the left hand, the patient does report subjective paresthesias. BACK: No CVA TTP. Current Patient Data Vital Signs Vital Signs Date Time Temp Pulse Resp B/P (MAP) Pulse Ox O2 Delivery O2 Flow Rate FiO2 04/13/19 16:35 98.1 63 15 131/62 (85) 98 Room Air 98.1 Lab Values Laboratory Tests Test 04/13/19 16:43 04/13/19 17:15 White Blood Count 13.5 x10^3/uL (4.0-11.0) H Red Blood Count 4.15 x10^6/uL (3.50-5.40) Hemoglobin 10.7 g/dL (12.0-15.5) L Hematocrit 33.2 % (36.0-47.0) L Mean Corpuscular Volume 80 fL (79-100) Mean Corpuscular Hemoglobin 26 pg (25-35) Mean Corpuscular Hemoglobin Concent 32 g/dL (31-37) Red Cell Distribution Width 16.3 % (11.5-14.5) H Platelet Count 569 x10^3/uL (140-400) H Neutrophils (%) (Auto) 64 % (31-73) Lymphocytes (%) (Auto) 30 % (24-48) Monocytes (%) (Auto) 4 % (0-9) Eosinophils (%) (Auto) 1 % (0-3) Basophils (%) (Auto) 1 % (0-3) Neutrophils # (Auto) 8.7 x10^3uL (1.8-7.7) H Lymphocytes # (Auto) 4.0 x10^3/uL (1.0-4.8) Monocytes # (Auto) 0.5 x10^3/uL (0.0-1.1) Eosinophils # (Auto) 0.1 x10^3/uL (0.0-0.7) Basophils # (Auto) 0.2 x10^3/uL (0.0-0.2) Sodium Level 147 mmol/L (136-145) H Potassium Level 3.6 mmol/L (3.5-5.1) Chloride Level 106 mmol/L (98-107) Carbon Dioxide Level 31 mmol/L (21-32) Anion Gap 10 (6-14) Blood Urea Nitrogen 17 mg/dL (7-20) Creatinine 0.8 mg/dL (0.6-1.0) Estimated GFR (Cockcroft-Gault) 80.3 BUN/Creatinine Ratio 21 (6-20) H Glucose Level 97 mg/dL (70-99) Calcium Level 8.5 mg/dL (8.5-10.1) Phosphorus Level 3.7 mg/dL (2.6-4.7) Magnesium Level 1.9 mg/dL (1.8-2.4) Total Bilirubin 0.1 mg/dL (0.2-1.0) L Aspartate Amino Transferase (AST) 15 U/L (15-37) Alanine Aminotransferase (ALT) 20 U/L (14-59) Alkaline Phosphatase 98 U/L (46-116) [id number]-Gvf-[id number]-Type Natriuretic Peptide 372 pg/mL (0-124) H Total Protein 6.8 g/dL (6.4-8.2) Albumin 3.1 g/dL (3.4-5.0) L Albumin/Globulin Ratio 0.8 (1.0-1.7) L Thyroid Stimulating Hormone (TSH) 3.795 uIU/mL (0.358-3.74) H Free Thyroxine 0.85 ng/dL (0.76-1.46) Urine Collection Type Unknown Urine Color Yellow Urine Clarity Clear Urine pH 7.0 Urine Specific [place] 1.015 Urine Protein Negative mg/dL (NEG-TRACE) Urine Glucose (UA) Negative mg/dL (NEG) Urine Ketones (Stick) Negative mg/dL (NEG) Urine Blood Negative (NEG) Urine Nitrite Negative (NEG) Urine Bilirubin Negative (NEG) Urine Urobilinogen Dipstick 1.0 mg/dL (0.2 mg/dL) Urine Leukocyte Esterase Negative (NEG) Urine RBC 0 /HPF (0-2) Urine WBC Rare /HPF (0-4) Urine Squamous Epithelial Cells Few /LPF Urine Bacteria 0 /HPF (0-FEW) Laboratory Tests 04/13/19 16:43 Laboratory Tests 04/13/19 16:43 EKG EKG [Normal sinus rhythm with a normal rate, normal axis, normal intervals, there are no acute ischemic ST/T changes.] Radiology/Procedures Radiology/Procedures [PROCEDURE: CT HEAD WO CONTRAST CT scan of the head without contrast 04/13/2019 Clinical History: Paresthesias. Right hand numbness for one month. Technique: Unenhanced, contiguous, 5 mm axial sections were obtained through the head. One or more of the following individualized dose reduction techniques were utilized for this study: 1. Automated exposure control. 2. Adjustment of the mA and/or kV according to patient size. 3. Use of iterative reconstruction technique. Findings: The ventricles and sulci are within normal limits in size and configuration. No focal area of abnormal attenuation is seen involving the brain parenchyma. No extra-axial fluid collection is seen. No skull fracture is seen. Impression: Negative study.] ER physician preliminary chest x-ray interpretation: Cardiomegaly, with somewhat improved patchy infiltrate in the right lung base. Course & Med Decision Making Course & Med Decision Making Pertinent Labs and Imaging studies reviewed. (See chart for details) []6:30 PM:Patient remains stable. I discussed test results, the need for close follow-up, and return precautions. I suspect her paresthesias and pain are related to her neuropathy, possibly related to her peripheral edema. I did discuss conservative measures at home to help improve her symptoms. Dragon Disclaimer Dragon Disclaimer This electronic medical record was generated, in whole or in part, using a voice recognition dictation system. Departure Departure Impression: Primary Impression: Paresthesias Additional Impression: cardiomyopathy Disposition: HOME, SELF-CARE Condition: STABLE Patient Instructions: Cardiomyopathy, Paresthesia Additional Instructions: Follow-up with your primary care provider, as instructed. Return to medical care for any new, or worsening symptoms, numbness, weakness, fever, trouble breathing, or any other concerning symptoms. Scripts Acetaminophen With Codeine (TYLENOL WITH CODEINE #3 TABLET) 1 Each Tablet 1 TAB PO PRN Q6HRS PRN for PAIN, #10 TAB Prov: YASMANI ALAS MD 04/13/19 Problem Qualifiers YASMANI ALAS MD April 13, 2019 17:10
[2019-04-13 17:23] LABS: BILIRUBIN,URINE NEGATIVE (NEG); CLARITY,URINE CLEAR; COLOR,URINE YELLOW; NITRITE,URINE NEGATIVE (NEG); PROTEIN,URINE NEGATIVE (NEG-TRACE)
[2019-04-13 17:24] LABS: CALCIUM 8.5 mg/dL (8.5-10.1); CREATININE 0.8 mg/dL (0.6-1.0); GFR 80.3; POTASSIUM 3.6 mmol/L (3.5-5.1)
--- NOTE | 2019-04-13 17:24 | RAD ---
CT scan of the head without contrast 04/13/2019 Clinical History: Paresthesias. Right hand numbness for one month. Technique: Unenhanced, contiguous, 5 mm axial sections were obtained through the head. One or more of the following individualized dose reduction techniques were utilized for this study: 1. Automated exposure control. 2. Adjustment of the mA and/or kV according to patient size. 3. Use of iterative reconstruction technique. Findings: The ventricles and sulci are within normal limits in size and configuration. No focal area of abnormal attenuation is seen involving the brain parenchyma. No extra-axial fluid collection is seen. No skull fracture is seen. Impression: Negative study. Electronically signed by: Rich Lance MD (04/13/2019 5:21 PM) [facility]
[2019-04-13 17:30] LABS: SQUAMOUS EPITHELIAL CELL,UR FEW /LPF
[2019-04-13 17:30] LABS: ALBUMIN 3.1 g/dL (3.4-5.0); ALBUMIN/GLOBULIN RATIO 0.8 (1.0-1.7); MAGNESIUM 1.9 mg/dL (1.8-2.4); PHOSPHORUS 3.7 mg/dL (2.6-4.7); TOTAL BILIRUBIN 0.1 mg/dL (0.2-1.0); TOTAL PROTEIN 6.8 g/dL (6.4-8.2)
[2019-04-13 17:31] LABS: BACTERIA,URINE 0 /HPF (0-FEW); RBC,URINE 0 /HPF (0-2); WBC,URINE RARE /HPF (0-4)
[2019-04-13] MEDS ORDERED: ACETAMINOPHEN/CODEINE 300/30MG TABLET. PO ONE (18:00)
[2019-04-13] MEDS ORDERED: ACETAMINOPHEN 325 MG TABLET. PO ONE (18:00)
[2019-04-13 18:12] LABS: FREE T4 0.85 ng/dL (0.76-1.46); THYROID STIM HORMONE (TSH) 3.795 uIU/mL (0.358-3.74)
[2019-04-13 18:35] VITALS: BP 119/87
[2019-04-13] MEDS ORDERED: ACET-704 PO (18:38)
--- NOTE | 2019-04-14 01:03 | RAD ---
PA and lateral chest radiographs 04/13/2019 CLINICAL HISTORY: Shortness of breath. PA and lateral digital radiographs of chest were obtained. Comparison study is dated 04/06/2019. The cardiac silhouette is borderline enlarged. The thoracic aorta is minimally tortuous. Bilateral perihilar infiltrates are seen which likely reflect pulmonary edema. These have increased since the previous examination. No pneumothorax or pleural effusion is seen. The osseous structures are unchanged. IMPRESSION: Increasing bilateral perihilar infiltrates. Electronically signed by: Rich Lanec MD (04/14/2019 1:00 AM) [facility]
--- NOTE | 2019-04-14 06:59 | EKG ---
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
== END 2019-04-13 19:15 | disposition home or self-care (01) ==
LOC: ER 16:18
DX: O99.43 Diseases of the circulatory system complicating the puerperium (principal); I42.9 Cardiomyopathy, unspecified; R20.2 Paresthesia of skin; M79.641 Pain in right hand; O99.53 Diseases of the respiratory system complicating the puerperium; J45.909 Unspecified asthma, uncomplicated; O99.345 Other mental disorders complicating the puerperium; F41.9 Anxiety disorder, unspecified
CPT/HCPCS: 36415; 70450; 71046; 80053; 81001; 83735; 83880; 84100; 84439; 84443; 85025; 93005; 99285-25